=== PATIENT | male | born 1955 | race Caucasian/White ===

== ENCOUNTER 2021-03-06 09:42 | Inpatient (IN) | payer OTHER, SELFPAY ==
[2021-03-06] VITALS (56 sets, daily range): BP systolic 101–147; BP diastolic 51–82; PULSE 54–95; RESP 16–36; TEMP 35.5–36.6; O2SAT 72–100; BMI 36.2; BMI 34.1
--- NOTE | 2021-03-06 09:49 | ED.GENADULT ---
HPI - General Adult General Chief complaint: Shortness of Breath/Dyspnea Stated complaint: SOB Time Seen by Provider: 03/06/21 09:48 Source: patient Mode of arrival: EMS Limitations: no limitations History of Present Illness HPI narrative: Patient is a 65-year-old male. No prior history of lung pathology. Is on vaccinated against COVID-19. Approximately 5 days ago was seen at an outside facility at a walk-in clinic. Was diagnosed with pneumonia. Was placed on antibiotics. He does not know what antibiotic it was. He was supposed to take it 2 times a day. He does not know how long he was supposed to take it. He has been taking it as directed. Brought in by EMS this morning for shortness of breath. EMS report that the patient's told them that since the diagnosis of pneumonia he has become more more short of breath specifically dyspnea with exertion. This morning he was having a very difficult time even getting from his chair to the kitchen which is why EMS was called. The patient denies shortness of breath. Has had a cough. No fevers. No abdominal pain. No nausea vomiting. No lower extremity swelling. No numbness or tingling in his hands. No headaches. Related Data Allergies Allergy/AdvReac Type Severity Reaction Status Date / Time No Known Drug Allergies Allergy Verified 03/06/21 10:01 Review of Systems Constitutional Constitutional: Reports as per HPI and Reports system reviewed and no additional complaints, except as documented ENT Ears, Nose, Mouth, and Throat: Reports system reviewed and no additional complaints, except as documented and Reports as per HPI Cardiovascular Cardiovascular: Reports as per HPI and Reports system reviewed and no additional complaints, except as documented Respiratory Respiratory: Reports as per HPI and Reports system reviewed and no additional complaints, except as documented Gastrointestinal Gastrointestinal: Reports as per HPI and Reports system reviewed and no additional complaints, except as documented Genitourinary Genitourinary: Reports system reviewed and no additional complaints, except as documented and Reports as per HPI Musculoskeletal Musculoskeletal: Reports system reviewed and no additional complaints, except as documented and Reports as per HPI Integumentary/Breasts Skin/Breast: Reports system reviewed and no additional complaints, except as documented Neurologic Neurologic: Reports system reviewed and no additional complaints, except as documented Psychiatric Psychiatric: Reports system reviewed and no additional complaints, except as documented Hematologic/Lymphatic On Anticoagulants: No Allergic/Immunologic Allergic/Immunologic: Reports system reviewed and no additional complaints, except as documented Patient History Medical History (Updated 03/06/21 @ 14:11 by Orlando Sy MD) Diabetes History of diabetes mellitus Hypertension Social History marital status: lives independently: Yes Smoking Status: Never smoker Exam Initial Vital Signs Initial Vital Signs: Vital Signs Temperature 97.8 F 03/06/21 09:55 Pulse Rate 70 03/06/21 09:55 Respiratory Rate 26 H 03/06/21 09:55 Blood Pressure 135/64 03/06/21 09:55 Pulse Oximetry 72 L 03/06/21 09:55 Const General: cooperative and ill appearing HENMT Head: normal to inspection and normocephalic Eyes General: appearance normal, both eyes and all related structures Neck Neck: normal visual inspection Chest Chest: normal inspection of the chest Resp Effort & Inspection: labored, respiratory distress and tachypneic Cardio Rate: regular rate Rhythm: regular rhythm GI Inspection: normal to inspection Skin General: no rashes or lesions noted Neuro General: patient alert, patient awake, patient oriented x3 and moves all extremities Extrem General: normal to inspection and capillary refill normal Psych Appearance: grossly normal and well kempt Course Orders Ordered: ED Orders 03/06/21 09:50 XR chest 1V Stat COVID19 - ADMIT (PLANT GUIDE swab/PCR) Stat COVID19 -Nasal swab/Pre-Proc Stat RT Consult Eval and Treat Now 03/06/21 09:53 EKG-12 Lead Stat 03/06/21 10:00 Blood Culture Stat C-Reactive Protein Quant Stat Complete Blood Count AUTO DIFF Stat Comprehensive Metabolic Panel Stat D Dimer Stat Ferritin Stat Lactate (Lactic Acid) Stat Lactate Dehydrogenase Stat Lipase Stat NT-proBNP (BNP-Adult 18+) Stat Procalcitonin Stat Troponin & CK Cardiac Panel Stat 03/06/21 10:04 Arterial Blood Gas Stat 03/06/21 10:12 BiPAP Ventilatory Support RT PROTOCOL Sodium Chloride (Normal Saline 0.9%) 1,000 mls @ 100 mls/hr IV CONT CARRILLO Last Admin: 03/06/21 10:10 Dose: 100 mls/hr Documented by: BIJAN Discontinued Medications Dexamethasone (Dexamethasone 10 Mg/Ml Vial) 10 mg IV NOW ONE Stop: 03/06/21 10:26 Last Admin: 03/06/21 10:37 Dose: 10 mg Documented by: GUADALUPE Remdesivir 200 mg/ Sodium (Chloride) 250 mls @ 250 mls/hr IV NOW ONE Stop: 03/06/21 11:24 Last Admin: 03/06/21 10:59 Dose: Not Given Documented by: GUADALUPE Vital Signs Vital signs: Vital Signs - 8 hr 03/06/21 09:55 03/06/21 10:02 03/06/21 10:04 Temperature 97.8 F Pulse Rate 70 Respiratory Rate 36 H 36 H Blood Pressure 135/64 Pulse Oximetry 90 L 89 L 89 L 03/06/21 10:08 03/06/21 10:10 03/06/21 10:30 Temperature Pulse Rate 74 71 73 Respiratory Rate 28 H 28 H 24 Blood Pressure 126/66 116/65 Pulse Oximetry 88 L 88 L 90 L 03/06/21 10:42 03/06/21 11:00 03/06/21 11:15 Temperature Pulse Rate 73 71 67 Respiratory Rate 24 24 21 Blood Pressure 121/68 102/69 Pulse Oximetry 89 L 93 95 03/06/21 11:27 03/06/21 11:30 03/06/21 11:45 Temperature Pulse Rate 95 H 66 69 Respiratory Rate 24 23 26 H Blood Pressure 110/61 Pulse Oximetry 100 96 92 03/06/21 11:50 03/06/21 12:00 03/06/21 12:15 Temperature Pulse Rate 74 72 Respiratory Rate 20 24 31 H Blood Pressure 117/72 Pulse Oximetry 94 85 L 03/06/21 12:30 03/06/21 12:45 03/06/21 13:00 Temperature Pulse Rate 61 61 62 Respiratory Rate 22 21 20 Blood Pressure 109/59 L 112/58 L Pulse Oximetry 95 97 97 03/06/21 13:15 03/06/21 13:30 03/06/21 13:44 Temperature Pulse Rate 60 57 L Respiratory Rate 22 23 24 Blood Pressure 110/55 L Pulse Oximetry 97 99 93 03/06/21 13:45 Temperature Pulse Rate 62 Respiratory Rate 24 Blood Pressure Pulse Oximetry 93 Medical Decision Making Lab Data Lab results reviewed: Yes I reviewed the patient's lab results. Result diagrams: 03/06/21 10:00 03/06/21 10:00 Labs: Lab Results 03/06/21 03/06/21 03/06/21 Range/Units 09:50 09:50 10:00 WBC 11.0 (4.5-11.0) X10^3/uL RBC 4.94 (4.5-5.9) X10^6/uL Hgb 15.0 (13.5-17.5) g/dL Hct 45.7 (41-53) % MCV 92.6 (80-100) fL MCH 30.3 (26-34) PG MCHC 32.7 (30-36) % RDW 14.1 (11.6-14.8) % Plt Count 234 (150-400) X10^3/uL Neut % (Auto) 70.4 (50-75) % Lymph % (Auto) 22.0 L (25-40) % [place] % (Auto) 6.9 (3-14) % Eos % (Auto) 0.1 L (2-4) % Baso % (Auto) 0.6 (0-2) % Neut # (Auto) 7700 H (5905-3722) /uL Lymph # (Auto) 2400 (0740-8993) /uL [place] # (Auto) 800 (0-900) /uL Eos # (Auto) 0 (0-450) /uL Baso # (Auto) 100 (0-100) /uL D-Dimer (<230) ng/mL ABG pH (7.35-7.45) ABG pCO2 (35-45) mmHg ABG pO2 (80-100) mmHg ABG HCO3 (22-26) mmol/L ABG Total CO2 (21-31) mmol/L ABG O2 Saturation (95-100) % ABG Base Excess (-2-2) mmol/L FiO2 Sodium (137-145) mmol/L Potassium (3.4-5.1) mmol/L Chloride (98-107) mmol/L Carbon Dioxide (22-32) mmol/L BUN (9-20) mg/dL Creatinine (0.66-1.25) mg/dL Estimated GFR (>60) mL/min BUN/Creatinine Ratio (6-22) Glucose (80-110) mg/dL Lactate (0.7-2.1) mmol/L Calcium (8.4-10.2) mg/dL Ferritin (18-464) ng/mL Total Bilirubin (0.2-1.3) mg/dL AST (17-59) IU/L ALT (<50) IU/L Alkaline Phosphatase (38-126) U/L Lactate Dehydrogenase (313-618) U/L Total Creatine Kinase (55-170) U/L CK-MB (CK-2) (<2.37) ng/mL CK-MB (CK-2) Rel Index (1.5-5.0) % Troponin I (0.01-0.034) ng/mL C-Reactive Protein (<1.0) mg/dL NT-Pro-B Natriuret Pep (<125) pg/mL Total Protein (6.3-8.2) g/dL Albumin (3.5-5.0) g/dL Globulin (1.7-4.1) g/dL Albumin/Globulin Ratio (1.0-2.8) Lipase (23-300) U/L Procalcitonin (<0.5) ng/mL SARS-CoV-2 (PCR) Positive H Positive H (Negative) 03/06/21 03/06/21 03/06/21 Range/Units 10:00 10:00 10:00 WBC (4.5-11.0) X10^3/uL RBC (4.5-5.9) X10^6/uL Hgb (13.5-17.5) g/dL Hct (41-53) % MCV (80-100) fL MCH (26-34) PG MCHC (30-36) % RDW (11.6-14.8) % Plt Count (150-400) X10^3/uL Neut % (Auto) (50-75) % Lymph % (Auto) (25-40) % [place] % (Auto) (3-14) % Eos % (Auto) (2-4) % Baso % (Auto) (0-2) % Neut # (Auto) (1866-6572) /uL Lymph # (Auto) (2418-1931) /uL [place] # (Auto) (0-900) /uL Eos # (Auto) (0-450) /uL Baso # (Auto) (0-100) /uL D-Dimer (<230) ng/mL ABG pH (7.35-7.45) ABG pCO2 (35-45) mmHg ABG pO2 (80-100) mmHg ABG HCO3 (22-26) mmol/L ABG Total CO2 (21-31) mmol/L ABG O2 Saturation (95-100) % ABG Base Excess (-2-2) mmol/L FiO2 Sodium 146 H (137-145) mmol/L Potassium 3.8 (3.4-5.1) mmol/L Chloride 110 H (98-107) mmol/L Carbon Dioxide 21 L (22-32) mmol/L BUN 46 H (9-20) mg/dL Creatinine 2.75 H (0.66-1.25) mg/dL Estimated GFR 23.2 L (>60) mL/min BUN/Creatinine Ratio 16.7 (6-22) Glucose 68 L (80-110) mg/dL Lactate 1.6 (0.7-2.1) mmol/L Calcium 8.6 (8.4-10.2) mg/dL Ferritin (18-464) ng/mL Total Bilirubin 0.7 (0.2-1.3) mg/dL AST 108 H (17-59) IU/L ALT 44 (<50) IU/L Alkaline Phosphatase 68 (38-126) U/L Lactate Dehydrogenase (313-618) U/L Total Creatine Kinase 277 H (55-170) U/L CK-MB (CK-2) 1.57 (<2.37) ng/mL CK-MB (CK-2) Rel Index 0.6 L (1.5-5.0) % Troponin I 0.028 (0.01-0.034) ng/mL C-Reactive Protein (<1.0) mg/dL NT-Pro-B Natriuret Pep 300 H (<125) pg/mL Total Protein 7.3 (6.3-8.2) g/dL Albumin 4.0 (3.5-5.0) g/dL Globulin 3.3 (1.7-4.1) g/dL Albumin/Globulin Ratio 1.2 (1.0-2.8) Lipase 162 (23-300) U/L Procalcitonin 0.83 H (<0.5) ng/mL SARS-CoV-2 (PCR) (Negative) 03/06/21 03/06/21 03/06/21 Range/Units 10:00 10:00 10:04 WBC (4.5-11.0) X10^3/uL RBC (4.5-5.9) X10^6/uL Hgb (13.5-17.5) g/dL Hct (41-53) % MCV (80-100) fL MCH (26-34) PG MCHC (30-36) % RDW (11.6-14.8) % Plt Count (150-400) X10^3/uL Neut % (Auto) (50-75) % Lymph % (Auto) (25-40) % [place] % (Auto) (3-14) % Eos % (Auto) (2-4) % Baso % (Auto) (0-2) % Neut # (Auto) (6154-1972) /uL Lymph # (Auto) (3247-2340) /uL [place] # (Auto) (0-900) /uL Eos # (Auto) (0-450) /uL Baso # (Auto) (0-100) /uL D-Dimer 2045 H (<230) ng/mL ABG pH 7.43 (7.35-7.45) ABG pCO2 27.5 L (35-45) mmHg ABG pO2 58 L (80-100) mmHg ABG HCO3 18 L (22-26) mmol/L ABG Total CO2 19 L (21-31) mmol/L ABG O2 Saturation 91 L (95-100) % ABG Base Excess -6.0 L (-2-2) mmol/L FiO2 100 Sodium (137-145) mmol/L Potassium (3.4-5.1) mmol/L Chloride (98-107) mmol/L Carbon Dioxide (22-32) mmol/L BUN (9-20) mg/dL Creatinine (0.66-1.25) mg/dL Estimated GFR (>60) mL/min BUN/Creatinine Ratio (6-22) Glucose (80-110) mg/dL Lactate (0.7-2.1) mmol/L Calcium (8.4-10.2) mg/dL Ferritin 1270 H (18-464) ng/mL Total Bilirubin (0.2-1.3) mg/dL AST (17-59) IU/L ALT (<50) IU/L Alkaline Phosphatase (38-126) U/L Lactate Dehydrogenase 2431 H (313-618) U/L Total Creatine Kinase (55-170) U/L CK-MB (CK-2) (<2.37) ng/mL CK-MB (CK-2) Rel Index (1.5-5.0) % Troponin I (0.01-0.034) ng/mL C-Reactive Protein 32.0 H (<1.0) mg/dL NT-Pro-B Natriuret Pep (<125) pg/mL Total Protein (6.3-8.2) g/dL Albumin (3.5-5.0) g/dL Globulin (1.7-4.1) g/dL Albumin/Globulin Ratio (1.0-2.8) Lipase (23-300) U/L Procalcitonin (<0.5) ng/mL SARS-CoV-2 (PCR) (Negative) Imaging Data Chest x-ray: Radiologist's Impression: [address] [address] XRay Report Signed Patient: Thierry Remy MR#: [id number] : 1955 Acct:[id number] Age/Sex: 65 / M Date of Service: 03/06/21 Loc: ED Accession Number: [id number] ?? Procedure: XR chest 1V Ordering Provider: Aric Smith D.O. PROCEDURE:? XR CHEST 1V ? INDICATIONS:? hypoxia ? TECHNIQUE:? One view of the chest was acquired.? ? COMPARISON:? [facility], XR SHOULDER 2+ VIEWS RIGHT, 01/14/2021, 16:15. ? FINDINGS:? ? Surgical changes and devices:? None.? ? Lungs and pleura:? Low lung volumes are noted. This causes a crowded appearance to the lung markings and limits evaluation.? Mild generalized interstitial prominence can be seen.? No large pneumothorax or large pleural effusions are seen.? ? Mediastinum:? Mediastinal contours appear normal.? Heart size is normal.? ? Bones and chest wall:? No suspicious bony lesions.? Age-appropriate bony degenerative changes are seen.? Overlying soft tissues appear unremarkable.? IMPRESSION:? Bilateral interstitial infiltrates are seen with low lung volumes.? Please consider COVID pneumonia.? ? ? Dictated by: Jayy Orr M.D. on 03/06/2021 at 9:31 ? ? Approved by: Jayy Orr M.D. on 03/06/2021 at 9:31?? ECG Data Attestation: I personally reviewed and interpreted this ECG as follows: Interpretation: Sinus rhythm Ventricular rate is 72 Normal axis Normal QRS Normal QTC No ST T wave changes MDM Narrative Medical decision making narrative: Patient arrived hypoxic. Had to be placed on high-flow nasal cannula. This improved his oxygen saturations to the high 80s. ABG shows a few to of 58 on the high-flow. Chest x-ray shows bilateral pulmonary infiltrates. COVID test today positive. Patient unvaccinated. Patient does have an elevation in his creatinine. No baseline to compare to. Patient states he has never had issues with his kidney function in the past. I discussed the case with Dr. li with Internal Medicine who recommended that I discuss the case with the tele ICU. I then discussed the case with with the tele ICU. He stated given his GFR that he is not a candidate for remdesivir. He was concerned about the patient's kidney function and the concerned that with fluid hydration he potentially could need renal replacement therapy. He recommended attempting to find a facility that has this available. We contacted multiple facilities in [facility] and there was no ICU bed availability. During his stay we did have the patient lay prone in the bed. He almost immediately had improvement of his respiratory status. Oxygen saturations now greater than 95%. When he got up to use the bedside commode his saturations dropped to the 70s per he denies chest pain. Because of no bed availability at any further ICU I discussed the case again with Dr. li who will admit for further evaluation and treatment. Did discuss the need of the admission with the patient. He expressed understanding and agreement. Critical Care Time Critical Care Time Critical Care Time: Yes Total Critical Care Time: 65 Attestation: The high probability of a clinically significant, sudden or life threatening deterioration of the respiratory system(s) required my full and direct attention, intervention and personal management. The aggregate critical care time was [65] minutes. This time is in addition to time spent performing reported procedures but includes the following: [x] Data Review and interpretation [x] Patient assessment and monitoring of vital signs [x] Documentation x[] Medication orders and management Discharge Plan Departure Patient Disposition: Admitted As Inpatient Clinical Impression: Pneumonia due to 2019 novel coronavirus, Hypoxia, Acute kidney injury Admit Date/Time: 03/06/21 13:47 Admit Provider: Hannah Li
--- NOTE | 2021-03-06 09:50 | DI.RAD.S_ITS ---
PROCEDURE: XR CHEST 1V INDICATIONS: hypoxia TECHNIQUE: One view of the chest was acquired. COMPARISON: [facility] [place], [place], XR SHOULDER 2+ VIEWS RIGHT, 01/14/2021, 16:15. FINDINGS: Surgical changes and devices: None. Lungs and pleura: Low lung volumes are noted. This causes a crowded appearance to the lung markings and limits evaluation. Mild generalized interstitial prominence can be seen. No large pneumothorax or large pleural effusions are seen. Mediastinum: Mediastinal contours appear normal. Heart size is normal. Bones and chest wall: No suspicious bony lesions. Age-appropriate bony degenerative changes are seen. Overlying soft tissues appear unremarkable. IMPRESSION: Bilateral interstitial infiltrates are seen with low lung volumes. Please consider COVID pneumonia. Dictated by: Jayy Orr M.D. on 03/06/2021 at 9:31 Approved by: Jayy Orr M.D. on 03/06/2021 at 9:31
[2021-03-06] MEDS: SODIUM CHLORIDE 0.9% 1,000 ML 100 ML IV (10:10)
[2021-03-06 10:11] LABS: Add Manual Diff / Slide Review NO; Basophils Absolute Auto 100 /uL (0-100); Basophils Percent Auto 0.6 % (0-2); Eosinophils Absolute Auto 0 /uL (0-450); Eosinophils Percent Auto 0.1 % (2-4); Hematocrit 45.7 % (41-53); Lymphocytes Absolute Auto 2400 /uL (1100-4500); Mean Corpuscular HGB Conc 32.7 % (30-36); Mean Corpuscular Hemoglobin 30.3 PG (26-34); Mean Corpuscular Volume 92.6 fL (80-100); Monocytes Absolute Auto 800 /uL (0-900); Monocytes Percent Auto 6.9 % (3-14); Neutrophils Absolute Auto 7700 /uL (1500-7000); Neutrophils Percent Auto 70.4 % (50-75); Platelet Count 234 X10^3/uL (150-400); Red Blood Cell Count 4.94 X10^6/uL (4.5-5.9); Red Cell Distribution Width 14.1 % (11.6-14.8)
--- NOTE | 2021-03-06 10:17 | PC.NURSE ---
Pt arrives on 12L NRB O2 from medics, sats 73%. Placed on 60Lmin high flow nasal cannula upon arrival, sats raise to 87%. Pt remains oriented, understands what is going on, speaking in broken sentences. Increased WOB, deep breaths, abdominal breathing, tachypnic. He states his at home has been developing a cough.
[2021-03-06 10:22] LABS: Fractionated Inspired Oxygen 100; HCO3 ABG 18 mmol/L (22-26); Oxygen Saturation ABG 91 % (95-100); PCO2 ABG 27.5 mmHg (35-45); PO2 ABG 58 mmHg (80-100); TCO2 ABG 19 mmol/L (21-31); pH ABG 7.43 (7.35-7.45)
[2021-03-06 10:24] LABS: Alanine Aminotransferase 44 IU/L (<50); Albumin Globulin Ratio 1.2 (1.0-2.8); Alkaline Phosphatase 68 U/L (38-126); Aspartate Aminotransferase 108 IU/L (17-59); BUN Creatinine Ratio 16.7 (6-22); Bilirubin Total 0.7 mg/dL (0.2-1.3); Blood Urea Nitrogen 46 mg/dL (9-20); Calcium 8.6 mg/dL (8.4-10.2); Carbon Dioxide 21 mmol/L (22-32); Chloride 110 mmol/L (98-107); Estimated Glomerular Filt Rate 23.2 mL/min (>60); Globulin 3.3 g/dL (1.7-4.1); Glucose 68 mg/dL (80-110); HEMOLYSIS 16 (0-50); Potassium 3.8 mmol/L (3.4-5.1); Sodium 146 mmol/L (137-145); Total Protein 7.3 g/dL (6.3-8.2)
[2021-03-06 10:25] LABS: Lactate (Lactic Acid) 1.6 mmol/L (0.7-2.1)
[2021-03-06 10:26] LABS: COVID19 -Nasal RAPID POSITIVE (Negative)
[2021-03-06 10:33] LABS: Creatine Kinase 277 U/L (55-170); Lipase 162 U/L (23-300)
[2021-03-06 10:34] LABS: D Dimer 2045 ng/mL (<230)
[2021-03-06] MEDS: DEXAMETHASONE 10 MG/ML VIAL IV (10:37)
[2021-03-06 10:46] LABS: NT-proBNP (BNP-Adult 18+) 300 pg/mL (<125); Troponin I 0.028 ng/mL (0.01-0.034)
[2021-03-06 10:48] LABS: Lactate Dehydrogenase 2431 U/L (313-618)
[2021-03-06 10:51] LABS: Procalcitonin 0.83 ng/mL (<0.5)
[2021-03-06 10:55] LABS: COVID19 - ADMIT (NP swab/PCR) POSITIVE (Negative)
[2021-03-06 10:59] LABS: CKMB % Relative Index 0.6 % (1.5-5.0); Creatine Kinase MB 1.57 ng/mL (<2.37)
[2021-03-06] MEDS: BARICITINIB 2 MG TABLET 1 MG PO (11:19)
--- NOTE | 2021-03-06 11:22 | PC.NURSE ---
Pt placed in full prone position, propped by pillow. Remains on high flow@60L/min. He states this position is much more comfortable and he feels more able to breathe. Sats raise to 94-97%. Call light within reach.
[2021-03-06 11:58] LABS: Ferritin 1270 ng/mL (18-464)
--- NOTE | 2021-03-06 12:50 | PC.NURSE ---
This RN to bedside to assist with elimination. Pt rolled to side/back lying. Unable to use urinal in this position. Attempted to lie on back and use bedpan, without successful output. Sat on edge of bed to use urinal, unable to eliminate. Throughout this entire process his sats drop to 77%-83%. Pt replaced to prone lying position with absorbent pads and brief below him. Sats begin to improve to mid 90's again. Call light within reach, encouraged to call for staff when needed. Pt remains GCS 15, aware of his diagnosis and situation. This RN has spoken with Romi who is also symptomatic and plans to go to the walk-in and get tested for COVID.
--- NOTE | 2021-03-06 13:46 | P.TELICUCN_ITS ---
History of Present Illness Consult details Chief complaint: SOB :: This patient was seen via real time interactive two-way audiovisual telecommunication. Narrative: Mr. Remy is a 65 year old male with history of hypertension and DM presents with worsening shortness of breath. Patient was diagnosed with pneumonia about 5 days ago and started on unknown antibiotics. He continues to have worsening shortness and cough. No reported fever/chills, abdominal pain, LE swelling, or N/V. EMS called and brought him to the ER for further evaluation. In ER he was found to have SpO2 in the 70s which he was placed on HFNC 60/100%. He was tested positive for COVID 19. Labs notable for Co2 21, BUN 46, Cr 2.75, ferritin 2431, LDH 1270, and CRP 32. TeleICU consulted and recommended transferring to tertiary care who is able to offer renal replacement therapy in the setting of worsening renal function. ER physician spoke to multiple [facility] centers but unfortunately there is no ICU bed available. Patient will be admitted to ICU for further management under Dr. Li's service with teleintensivist consult. [facility] Medical History (Updated 03/06/21 @ 14:11 by Orlando Sy MD) Diabetes History of diabetes mellitus Hypertension Social History marital status: lives independently: Yes Smoking Status: Never smoker Current Medications Current Medications Medications: Visit Medications (administered) Generic Name Dose Route Start Last Admin Trade Name Freq PRN Reason Stop Dose Admin Sodium Chloride 1,000 mls @ 100 mls/hr 03/06/21 10:00 03/06/21 10:10 Normal Saline 0.9% IV 100 mls/hr CONT CARRILLO Administration Exam Vital Signs (past 8 hours): - 03/06/21 09:55 03/06/21 10:02 03/06/21 10:08 Temperature 97.8 F Pulse Rate 70 74 Respiratory Rate 36 H 28 H Blood Pressure 135/64 Pulse Oximetry 90 L 89 L 88 L 03/06/21 10:10 03/06/21 10:30 03/06/21 10:42 Temperature Pulse Rate 71 73 73 Respiratory Rate 28 H 24 24 Blood Pressure 126/66 116/65 Pulse Oximetry 88 L 90 L 89 L 03/06/21 11:00 03/06/21 11:15 03/06/21 11:27 Temperature Pulse Rate 71 67 95 H Respiratory Rate 24 21 24 Blood Pressure 121/68 102/69 Pulse Oximetry 93 95 100 03/06/21 11:30 03/06/21 11:45 03/06/21 12:00 Temperature Pulse Rate 66 69 74 Respiratory Rate 23 26 H 24 Blood Pressure 110/61 117/72 Pulse Oximetry 96 92 85 L 03/06/21 12:15 03/06/21 12:30 03/06/21 12:45 Temperature Pulse Rate 72 61 61 Respiratory Rate 31 H 22 21 Blood Pressure 109/59 L Pulse Oximetry 95 97 03/06/21 13:00 Temperature Pulse Rate 62 Respiratory Rate 20 Blood Pressure 112/58 L Pulse Oximetry 97 Oxygen Delivery Method High Flow Nasal Cannula Oxygen Flow Rate 90 Narrative Exam Narrative: Awake and following commands. On HFNC. Objective Labs Result Diagrams: 03/06/21 10:00 03/06/21 10:00 Labs: Laboratory Results - last 24 hr 03/06/21 03/06/21 03/06/21 09:50 09:50 10:00 WBC 11.0 RBC 4.94 Hgb 15.0 Hct 45.7 MCV 92.6 MCH 30.3 MCHC 32.7 RDW 14.1 Plt Count 234 Neut % (Auto) 70.4 Lymph % (Auto) 22.0 L [place] % (Auto) 6.9 Eos % (Auto) 0.1 L Baso % (Auto) 0.6 Neut # (Auto) 7700 H Lymph # (Auto) 2400 [place] # (Auto) 800 Eos # (Auto) 0 Baso # (Auto) 100 D-Dimer ABG pH ABG pCO2 ABG pO2 ABG HCO3 ABG Total CO2 ABG O2 Saturation ABG Base Excess FiO2 Sodium Potassium Chloride Carbon Dioxide BUN Creatinine Estimated GFR BUN/Creatinine Ratio Glucose Lactate Calcium Ferritin Total Bilirubin AST ALT Alkaline Phosphatase Lactate Dehydrogenase Total Creatine Kinase CK-MB (CK-2) CK-MB (CK-2) Rel Index Troponin I C-Reactive Protein NT-Pro-B Natriuret Pep Total Protein Albumin Globulin Albumin/Globulin Ratio Lipase Procalcitonin SARS-CoV-2 (PCR) Positive H Positive H 03/06/21 03/06/21 03/06/21 10:00 10:00 10:00 WBC RBC Hgb Hct MCV MCH MCHC RDW Plt Count Neut % (Auto) Lymph % (Auto) [place] % (Auto) Eos % (Auto) Baso % (Auto) Neut # (Auto) Lymph # (Auto) [place] # (Auto) Eos # (Auto) Baso # (Auto) D-Dimer ABG pH ABG pCO2 ABG pO2 ABG HCO3 ABG Total CO2 ABG O2 Saturation ABG Base Excess FiO2 Sodium 146 H Potassium 3.8 Chloride 110 H Carbon Dioxide 21 L BUN 46 H Creatinine 2.75 H Estimated GFR 23.2 L BUN/Creatinine Ratio 16.7 Glucose 68 L Lactate 1.6 Calcium 8.6 Ferritin Total Bilirubin 0.7 AST 108 H ALT 44 Alkaline Phosphatase 68 Lactate Dehydrogenase Total Creatine Kinase 277 H CK-MB (CK-2) 1.57 CK-MB (CK-2) Rel Index 0.6 L Troponin I 0.028 C-Reactive Protein NT-Pro-B Natriuret Pep 300 H Total Protein 7.3 Albumin 4.0 Globulin 3.3 Albumin/Globulin Ratio 1.2 Lipase 162 Procalcitonin 0.83 H SARS-CoV-2 (PCR) 03/06/21 03/06/21 03/06/21 10:00 10:00 10:04 WBC RBC Hgb Hct MCV MCH MCHC RDW Plt Count Neut % (Auto) Lymph % (Auto) [place] % (Auto) Eos % (Auto) Baso % (Auto) Neut # (Auto) Lymph # (Auto) [place] # (Auto) Eos # (Auto) Baso # (Auto) D-Dimer 2045 H ABG pH 7.43 ABG pCO2 27.5 L ABG pO2 58 L ABG HCO3 18 L ABG Total CO2 19 L ABG O2 Saturation 91 L ABG Base Excess -6.0 L FiO2 100 Sodium Potassium Chloride Carbon Dioxide BUN Creatinine Estimated GFR BUN/Creatinine Ratio Glucose Lactate Calcium Ferritin 1270 H Total Bilirubin AST ALT Alkaline Phosphatase Lactate Dehydrogenase 2431 H Total Creatine Kinase CK-MB (CK-2) CK-MB (CK-2) Rel Index Troponin I C-Reactive Protein 32.0 H NT-Pro-B Natriuret Pep Total Protein Albumin Globulin Albumin/Globulin Ratio Lipase Procalcitonin SARS-CoV-2 (PCR) Assessment & Plan Assessment and plan (1) Acute respiratory failure with hypoxemia: Status: Acute (2) Metabolic acidosis: Status: Acute Assessment & Plan narrative: NEURO: -- Seek early mobility once hypoxemia improve -- Encourage ROM while in bed as tolerated RESP: # Acute hypoxemia respiratory failure -- Secondary to COVID pneumonia -- Admitted to ICU on HFNC -- COVID rx as below -- Monitor closely for the need for intubation -- RT to titrate FiO2 and flow with HFNC -- Aggressive pulmonary toilet as able -- Recommend stopping IVF and starting lasix 40 mg IV BID to seek net negative fluid balance -- Encourage self proning as tolerated -- Goal SpO2 > 88% CVS: # Hx of HTN -- Currently normotensive -- Recommend holding off restarting BP meds and initiate lasix 40 mg IV BID to seek net negative fluid balance -- Goal SBP < 140 ID: # Pneumonia due to COVID-19 -- Risk factors -> DM, HTN, obesity, and age -- Trend CRP, LDH, troponin, ferritin, D dimer, and LFT -- Start decadron 6 mg X 10 days -- Not a candidate for EUA remdesivir given GFR < 30 -- Recommend starting baricitinib (renally dose by pharmacy) -- Recommend checking venous duplex in upper and lower extremities to rule out VTE -- Avoid NSAIDs -- Encourage self prone as tolerated (ie, 2 hours supine and 2 hours prone) -- Recommend starting diuresis to seek net negative fluid balance -- On strict contact, droplet/airborne, eye protection, and critical meticulous hand hygiene : # Acute renal failure -- Unknown baseline cr -- Secondary to COVID -19 -- Recommend lasix 40 mg IV BID to seek net negative fluid balance -- Avoid nephrotoxin agents -- Daily BMP -- Recommend seeking transfer to tertiary center as patient may warrant renal replacement therapy if renal function continues to deteriorate # Metabolic acidosis -- Secondary to acute renal failure -- Daily BMP -- Needs to be transfer to tertiary center as patient may warrant renal replacement therapy in the setting of worsening acidemia ENDO: # DM -- BS 68, related to poor po intake -- Encourage PO intake -- Accucheck AC QHS -- Goal BS < 180 Case d/w RN and Dr. Li. Time Spent With Patient Critical Care time: I spent a total of 43 minutes of critical care time on this patient's care today; this time is exclusive of procedural time.
--- NOTE | 2021-03-06 14:12 | PC.NURSE ---
Pt remains prone, stating that he is most comfortable this way. Sats remain stable only in the prone position. Sats drop to 80's% whenever her changes position or exerts himself.
--- NOTE | 2021-03-06 15:47 | PC.NURSE ---
Report called to [facility] [employer]
--- NOTE | 2021-03-06 17:40 | PM.HP.1 ---
History of Present Illness History of Present Illness Date Patient Seen: 03/06/21 Time Patient Seen: 17:40 Chief complaint: SOB Narrative: the patient is a 65-year-old male with a history of type 2 diabetes, hypertension, who was in his usual state of health until about 1 week ago. Patient was diagnosed with pneumonia and started on oral antibiotics. Patient states that he became more short of breath. As his shortness of breath increased the called EMS for him to be admitted to the hospital. Patient was diagnosed with COVID 19. He is unvaccinated. He does report shortness of breath, cough, loss of taste and smell. He has a poor appetite. He has no headache. He has had no diarrhea. Patient denies any abdominal pain. He has a plate in his ankle and has chronic ankle pain. Patient was evaluated in the emergency room found to be [id number] positive. He was markedly hypoxic. Patient is now on 80% high-flow oxygen with a saturation of 95%. Since pronating he has had improvement of his oxygenation. Patient is admitted to the ICU for treatment of acute respiratory failure secondary to COVID pneumonia. Patient History Medical History Diabetes History of diabetes mellitus Hypertension Family & Social History Family History (Updated 03/06/21 @ 17:44 by Hannah Li MD) Father Cancer Mother Multiple sclerosis Social History: household members spouse Prior Living Arrangements House lives independently Yes Safety & Behavioral: Feels Safe in Current Yes Environment Been Physically Hurt or No Threatened By a Person Suicidal Ideation Description None Suicide Plan Description No Plan Tobacco & Substance use: Smoking Status Never smoker alcohol intake frequency holiday/special occasion Substance Use Type does not use Meds Home Medications and Allergies Home Medications Medication Instructions Recorded Confirmed Type felodipine 2.5 mg tablet,extended 2.5 mg PO DAILY 03/06/21 03/06/21 History release 24 hr losartan 100 mg tablet 100 mg DAILY 03/06/21 03/06/21 History metformin 500 mg tablet,extended 500 mg PO DAILY 03/06/21 03/06/21 History release 24 hr Allergies Allergy/AdvReac Type Severity Reaction Status Date / Time No Known Drug Allergies Allergy Verified 03/06/21 10:01 Exam Vital Signs (past 8 hours): - 03/06/21 09:55 03/06/21 10:02 03/06/21 10:04 Temperature 97.8 F Pulse Rate 70 Respiratory Rate 36 H 36 H Blood Pressure 135/64 Pulse Oximetry 90 L 89 L 89 L 03/06/21 10:08 03/06/21 10:10 03/06/21 10:30 Temperature Pulse Rate 74 71 73 Respiratory Rate 28 H 28 H 24 Blood Pressure 126/66 116/65 Pulse Oximetry 88 L 88 L 90 L 03/06/21 10:42 03/06/21 11:00 03/06/21 11:15 Temperature Pulse Rate 73 71 67 Respiratory Rate 24 24 21 Blood Pressure 121/68 102/69 Pulse Oximetry 89 L 93 95 03/06/21 11:27 03/06/21 11:30 03/06/21 11:45 Temperature Pulse Rate 95 H 66 69 Respiratory Rate 24 23 26 H Blood Pressure 110/61 Pulse Oximetry 100 96 92 03/06/21 11:50 03/06/21 12:00 03/06/21 12:15 Temperature Pulse Rate 74 72 Respiratory Rate 20 24 31 H Blood Pressure 117/72 Pulse Oximetry 94 85 L 03/06/21 12:30 03/06/21 12:45 03/06/21 13:00 Temperature Pulse Rate 61 61 62 Respiratory Rate 22 21 20 Blood Pressure 109/59 L 112/58 L Pulse Oximetry 95 97 97 03/06/21 13:15 03/06/21 13:30 03/06/21 13:44 Temperature Pulse Rate 60 57 L Respiratory Rate 22 23 24 Blood Pressure 110/55 L Pulse Oximetry 97 99 93 03/06/21 13:45 03/06/21 14:00 03/06/21 14:15 Temperature Pulse Rate 62 60 58 L Respiratory Rate 24 23 23 Blood Pressure 110/60 Pulse Oximetry 93 94 96 03/06/21 14:30 03/06/21 14:45 03/06/21 15:00 Temperature Pulse Rate 56 L 60 54 L Respiratory Rate 23 24 22 Blood Pressure 105/56 L 101/56 L Pulse Oximetry 95 94 96 03/06/21 15:15 03/06/21 15:30 Temperature Pulse Rate 55 L 57 L Respiratory Rate 21 22 Blood Pressure 108/58 L Pulse Oximetry 97 97 Oxygen Delivery Method High Flow Nasal Cannula Oxygen Flow Rate 60 Narrative Exam Narrative: ill-appearing male lying prone who appears short of breath HENMT Other: normocephalic atraumatic, extraocular muscles are intact, oropharynx is clear with dry mucous membranes Neck Other: neck is supple without adenopathy Resp Other: lungs decreased breath sounds with scattered crackles b Cardio Other: cardiac exam: Regular rate and rhythm normal S1-S2 GI Other: abdomen: Soft nontender nondistended Skin Other: no obvious lesions Neuro Other: neuro exam: Cranial nerves appear to be intact, patient is able move all extremities, sensations grossly intact Extrem Other: extremities: No edema Psych Other: patient is awake and alert and responds to questions appropriately, no hallucinations, no delusions, normal judgment and thought process Objective Labs Result Diagrams: 03/06/21 10:00 03/06/21 10:00 Labs: Laboratory Results - last 24 hr 03/06/21 03/06/21 03/06/21 09:50 09:50 10:00 WBC 11.0 RBC 4.94 Hgb 15.0 Hct 45.7 MCV 92.6 MCH 30.3 MCHC 32.7 RDW 14.1 Plt Count 234 Neut % (Auto) 70.4 Lymph % (Auto) 22.0 L [place] % (Auto) 6.9 Eos % (Auto) 0.1 L Baso % (Auto) 0.6 Neut # (Auto) 7700 H Lymph # (Auto) 2400 [place] # (Auto) 800 Eos # (Auto) 0 Baso # (Auto) 100 D-Dimer ABG pH ABG pCO2 ABG pO2 ABG HCO3 ABG Total CO2 ABG O2 Saturation ABG Base Excess FiO2 Sodium Potassium Chloride Carbon Dioxide BUN Creatinine Estimated GFR BUN/Creatinine Ratio Glucose Lactate Calcium Ferritin Total Bilirubin AST ALT Alkaline Phosphatase Lactate Dehydrogenase Total Creatine Kinase CK-MB (CK-2) CK-MB (CK-2) Rel Index Troponin I C-Reactive Protein NT-Pro-B Natriuret Pep Total Protein Albumin Globulin Albumin/Globulin Ratio Lipase Procalcitonin SARS-CoV-2 (PCR) Positive H Positive H 03/06/21 03/06/21 03/06/21 10:00 10:00 10:00 WBC RBC Hgb Hct MCV MCH MCHC RDW Plt Count Neut % (Auto) Lymph % (Auto) [place] % (Auto) Eos % (Auto) Baso % (Auto) Neut # (Auto) Lymph # (Auto) [place] # (Auto) Eos # (Auto) Baso # (Auto) D-Dimer ABG pH ABG pCO2 ABG pO2 ABG HCO3 ABG Total CO2 ABG O2 Saturation ABG Base Excess FiO2 Sodium 146 H Potassium 3.8 Chloride 110 H Carbon Dioxide 21 L BUN 46 H Creatinine 2.75 H Estimated GFR 23.2 L BUN/Creatinine Ratio 16.7 Glucose 68 L Lactate 1.6 Calcium 8.6 Ferritin Total Bilirubin 0.7 AST 108 H ALT 44 Alkaline Phosphatase 68 Lactate Dehydrogenase Total Creatine Kinase 277 H CK-MB (CK-2) 1.57 CK-MB (CK-2) Rel Index 0.6 L Troponin I 0.028 C-Reactive Protein NT-Pro-B Natriuret Pep 300 H Total Protein 7.3 Albumin 4.0 Globulin 3.3 Albumin/Globulin Ratio 1.2 Lipase 162 Procalcitonin 0.83 H SARS-CoV-2 (PCR) 03/06/21 03/06/21 03/06/21 10:00 10:00 10:04 WBC RBC Hgb Hct MCV MCH MCHC RDW Plt Count Neut % (Auto) Lymph % (Auto) [place] % (Auto) Eos % (Auto) Baso % (Auto) Neut # (Auto) Lymph # (Auto) [place] # (Auto) Eos # (Auto) Baso # (Auto) D-Dimer 2045 H ABG pH 7.43 ABG pCO2 27.5 L ABG pO2 58 L ABG HCO3 18 L ABG Total CO2 19 L ABG O2 Saturation 91 L ABG Base Excess -6.0 L FiO2 100 Sodium Potassium Chloride Carbon Dioxide BUN Creatinine Estimated GFR BUN/Creatinine Ratio Glucose Lactate Calcium Ferritin 1270 H Total Bilirubin AST ALT Alkaline Phosphatase Lactate Dehydrogenase 2431 H Total Creatine Kinase CK-MB (CK-2) CK-MB (CK-2) Rel Index Troponin I C-Reactive Protein 32.0 H NT-Pro-B Natriuret Pep Total Protein Albumin Globulin Albumin/Globulin Ratio Lipase Procalcitonin SARS-CoV-2 (PCR) Assessment & Plan Assessment & Plan narrative: the patient is a 65-year-old male with a history of hypertension type 2 diabetes admitted to the hospital with acute respiratory failure secondary to COVID pneumonia -Patient is Sars Covid-19 + -Patient is unvaccinated -Patient is hypoxic now on High Flow 80%, 60 liters -Chest Xray confirms bilateral interstital infiltrates -WBC 11.0, D-dimer 2045, ABG ,7.43, 27.5,58, 19, 91% on 100% FIO2 -Ferritin 1270, AST 108, LDH 2431, CRP, 32.0, Procalcitonin 0.83 -Troponin 0.28 -will continue decadron, remdesivir, baricitinib (renally dosed) -on lovenox 40 mg Sq -continue proning -d/c IVF -consider CTA to r/o PE if no improvement Acute vs. Chronic Renal Failure -Creatinine elevated at 2.75, unsure of baseline -Lactic Acid 1.6 -Losartan on hold -Lasix per [employer] [place] Hypertension -blood pressure well controlled -hold losartan and felodipine Type 2 Diabetes -hold metformin and glipizide -basal bolus insulin, start lantus 20 units tonight plus sliding scale DVT prophylaxis -lovenox 40 SQ daily ( given renal failure) - Patient is a full code. His is his surrogate decision maker. If the patient required intubation he would want this. IF tracheostomy was required he would want this as well I have utilized all available resources to review update, and confirm his current medications 45 mins critical care time spent with this patient Time Spent With Patient Critical Care time: I spent a total of [] minutes of critical care time on this patient's care today; this time is exclusive of procedural time.
--- NOTE | 2021-03-06 20:20 | PM.ICURNDS ---
- Date Patient Seen: 03/06/21 Time Patient Seen: 20:20 :: This patient was seen via real time interactive two-way audiovisual telecommunication. Note: patient seen/chart reviewed 65 year old male with covid pna acute renal failure currently afebrile, HD stable, mental status intact, in prone position -cont intermittent proning -cont steroids -cont diuresis -suggest transfer to tertiary center when bed available -discussed with bedside nurse
[2021-03-06] MEDS: MAGNESIUM HYDROXIDE 30 ML UDC PO (21:31)
[2021-03-06] MEDS: INSULIN GLARGINE 100 UNIT/ML 3ML PEN 20 UNIT SUBCUT (21:31)
[2021-03-06] MEDS: DOCUSATE 100 MG CAPSULE PO (21:31)
[2021-03-06] MEDS: INSULIN LISPRO 100 UNIT/ML 3ML VIAL SUBCUT (21:32)
--- NOTE | 2021-03-06 22:26 | PC.ADMIT ---
[address] [facility] Admission Note: The patient,Thierry Remy,65 y/o, was given written information regarding hospital policies, unit procedures and contact persons. Patient's smoking status: Never smoker. Vital Signs - 8 hr 03/06/21 14:30 03/06/21 14:45 03/06/21 15:00 Temperature Pulse Rate 56 L 60 54 L Respiratory Rate 23 24 22 Blood Pressure 105/56 L 101/56 L Pulse Oximetry 95 94 96 03/06/21 15:15 03/06/21 15:30 03/06/21 15:40 Temperature Pulse Rate 55 L 57 L 59 L Respiratory Rate 21 22 20 Blood Pressure 108/58 L Pulse Oximetry 97 97 95 03/06/21 15:45 03/06/21 16:00 03/06/21 16:21 Temperature Pulse Rate 57 L 67 62 Respiratory Rate 23 28 H 29 H Blood Pressure 121/67 Pulse Oximetry 98 91 03/06/21 16:23 03/06/21 16:30 03/06/21 16:45 Temperature 95.9 F L Pulse Rate 60 61 68 Respiratory Rate 26 H 26 H 20 Blood Pressure 111/51 L Pulse Oximetry 94 92 03/06/21 17:00 03/06/21 17:06 03/06/21 17:15 Temperature Pulse Rate 54 L 62 65 Respiratory Rate 23 24 Blood Pressure 120/61 120/61 Pulse Oximetry 94 93 91 03/06/21 17:30 03/06/21 17:45 03/06/21 18:00 Temperature Pulse Rate 66 62 60 Respiratory Rate 22 22 20 Blood Pressure 115/58 L Pulse Oximetry 95 93 96 03/06/21 18:30 03/06/21 19:00 03/06/21 19:01 Temperature Pulse Rate 59 L 77 77 Respiratory Rate 32 H 31 H Blood Pressure 147/82 H 147/82 H Pulse Oximetry 96 80 L 78 L 03/06/21 19:30 03/06/21 20:00 03/06/21 20:13 Temperature Pulse Rate 70 61 61 Respiratory Rate 29 H 22 25 H Blood Pressure Pulse Oximetry 87 L 92 98 03/06/21 20:30 03/06/21 21:00 03/06/21 21:30 Temperature Pulse Rate 76 61 63 Respiratory Rate 24 23 29 H Blood Pressure 127/63 Pulse Oximetry 87 L 90 L 93 03/06/21 22:00 Temperature Pulse Rate 60 Respiratory Rate 22 Blood Pressure 127/58 L Pulse Oximetry 95 Patient admitted from ED to hospitalists' care around 1615. Patient A/Ox4, on HHF 60L, 80%, spO2 in low 90's when prone, mid 80s when supine. BP WNL, HR barry in 50s. RR low 20s once settled. Consulted with teleICU. Placed ness. Patient oriented to room and call light, able to make needs known.
[2021-03-06] MEDS: FUROSEMIDE 40 MG/4 ML VIAL IV (23:58)
[2021-03-07] VITALS (57 sets, daily range): BP systolic 96–126; BP diastolic 55–76; PULSE 44–69; RESP 15–33; TEMP 35.7–36.8; O2SAT 77–99
[2021-03-07 04:54] LABS: Add Manual Diff / Slide Review NO; Basophils Absolute Auto 0 /uL (0-100); Basophils Percent Auto 0.3 % (0-2); Eosinophils Absolute Auto 0 /uL (0-450); Hematocrit 43.5 % (41-53); Hemoglobin 14.1 g/dL (13.5-17.5); Lymphocytes Absolute Auto 1400 /uL (1100-4500); Lymphocytes Percent Auto 12.5 % (25-40); Mean Corpuscular HGB Conc 32.4 % (30-36); Mean Corpuscular Volume 92.8 fL (80-100); Monocytes Absolute Auto 800 /uL (0-900); Monocytes Percent Auto 7.3 % (3-14); Neutrophils Absolute Auto 9000 /uL (1500-7000); Neutrophils Percent Auto 79.9 % (50-75); Platelet Count 254 X10^3/uL (150-400); Red Blood Cell Count 4.69 X10^6/uL (4.5-5.9); Red Cell Distribution Width 13.9 % (11.6-14.8); White Blood Cell Count 11.2 X10^3/uL (4.5-11.0)
[2021-03-07 06:00] LABS: Alanine Aminotransferase 39 IU/L (<50); Albumin 3.5 g/dL (3.5-5.0); Albumin Globulin Ratio 1.2 (1.0-2.8); Alkaline Phosphatase 64 U/L (38-126); Aspartate Aminotransferase 76 IU/L (17-59); BUN Creatinine Ratio 25.9 (6-22); Bilirubin Total 0.7 mg/dL (0.2-1.3); Blood Urea Nitrogen 57 mg/dL (9-20); Calcium 8.4 mg/dL (8.4-10.2); Carbon Dioxide 18 mmol/L (22-32); Chloride 110 mmol/L (98-107); HEMOLYSIS 16 (0-50); Potassium 4.2 mmol/L (3.4-5.1); Sodium 143 mmol/L (137-145); Total Protein 6.5 g/dL (6.3-8.2)
[2021-03-07 06:12] LABS: Troponin I < 0.012 ng/mL (0.01-0.034)
[2021-03-07 06:13] LABS: Glucose 437 mg/dL (80-110)
[2021-03-07] MEDS: INSULIN LISPRO 100 UNIT/ML 3ML VIAL SUBCUT ×5 (06:41→20:13)
[2021-03-07] MEDS: BARICITINIB 2 MG TABLET 1 MG PO (08:34)
[2021-03-07] MEDS: ENOXAPARIN 40 MG/0.4 ML SYRINGE SUBCUT (08:34)
[2021-03-07] MEDS: DOCUSATE 100 MG CAPSULE PO ×2 (08:34→20:14)
[2021-03-07] MEDS: MAGNESIUM HYDROXIDE 30 ML UDC PO ×2 (08:34→20:14)
[2021-03-07] MEDS: INSULIN GLARGINE 100 UNIT/ML 3ML PEN 10 UNIT SUBCUT (08:35)
--- NOTE | 2021-03-07 09:36 | PM.PN.EICU ---
Subjective Subjective :: This patient was seen via real time interactive two-way audiovisual telecommunication. No acute issues overnight. Net negative 2.2 liters. Cr improving slowly with diuresis. Awaiting to be transfer to tertiary center when ICU bed becomes available. Current Medications Current Medications Medications: Home Medications felodipine 2.5 mg tablet,extended release 24 hr 2.5 mg PO DAILY 03/06/21 [History Confirmed 03/06/21] losartan 100 mg tablet 100 mg DAILY 03/06/21 [History Confirmed 03/06/21] metformin 500 mg tablet,extended release 24 hr 500 mg PO DAILY 03/06/21 [History Confirmed 03/06/21] Visit Medications (administered) Generic Name Dose Route Start Last Admin Trade Name Freq PRN Reason Stop Dose Admin Docusate Sodium 100 mg 03/06/21 21:00 03/07/21 08:34 Docusate 100 Mg Capsule PO 100 mg BID CARRILLO Administration Enoxaparin Sodium 40 mg 03/07/21 09:00 03/07/21 08:34 Enoxaparin 40 Mg/0.4 Ml Syringe SUBCUT 40 mg DAILY CARRILLO Administration Furosemide 40 mg 03/07/21 00:00 03/06/21 23:58 Furosemide 40 Mg/4 Ml Vial IV 40 mg Q12HR CARRILLO Administration Insulin Glargine 20 unit 03/06/21 21:00 03/06/21 21:31 Insulin Glargine 100 Unit/Ml 3ml Pen SUBCUT 20 unit BEDTIME CARRILLO Administration Insulin Glargine 10 unit 03/07/21 09:00 03/07/21 08:35 Insulin Glargine 100 Unit/Ml 3ml Pen SUBCUT 10 unit DAILY CARRILLO Administration Insulin Human Lispro 0 unit 03/06/21 21:00 03/07/21 09:28 Insulin Lispro 100 Unit/Ml 3ml Vial SUBCUT 8 unit ACHS CARRILLO Administration Protocol Magnesium Hydroxide 30 ml 03/06/21 21:00 03/07/21 08:34 Magnesium Hydroxide 30 Ml Udc PO 30 ml BID CARRILLO Administration Objective Ventilator Parameters: Ventilator Settings FiO2 83 Labs Result Diagrams: 03/07/21 04:37 03/07/21 05:30 Labs: Laboratory Results - last 24 hr 03/06/21 03/06/21 03/06/21 09:50 09:50 10:00 WBC 11.0 RBC 4.94 Hgb 15.0 Hct 45.7 MCV 92.6 MCH 30.3 MCHC 32.7 RDW 14.1 Plt Count 234 Neut % (Auto) 70.4 Lymph % (Auto) 22.0 L [place] % (Auto) 6.9 Eos % (Auto) 0.1 L Baso % (Auto) 0.6 Neut # (Auto) 7700 H Lymph # (Auto) 2400 [place] # (Auto) 800 Eos # (Auto) 0 Baso # (Auto) 100 D-Dimer ABG pH ABG pCO2 ABG pO2 ABG HCO3 ABG Total CO2 ABG O2 Saturation ABG Base Excess FiO2 Sodium Potassium Chloride Carbon Dioxide BUN Creatinine Estimated GFR BUN/Creatinine Ratio Glucose Lactate Calcium Ferritin Total Bilirubin AST ALT Alkaline Phosphatase Lactate Dehydrogenase Total Creatine Kinase CK-MB (CK-2) CK-MB (CK-2) Rel Index Troponin I C-Reactive Protein NT-Pro-B Natriuret Pep Total Protein Albumin Globulin Albumin/Globulin Ratio Lipase Procalcitonin Nasal Screen MRSA (PCR) SARS-CoV-2 (PCR) Positive H Positive H 03/06/21 03/06/21 03/06/21 10:00 10:00 10:00 WBC RBC Hgb Hct MCV MCH MCHC RDW Plt Count Neut % (Auto) Lymph % (Auto) [place] % (Auto) Eos % (Auto) Baso % (Auto) Neut # (Auto) Lymph # (Auto) [place] # (Auto) Eos # (Auto) Baso # (Auto) D-Dimer ABG pH ABG pCO2 ABG pO2 ABG HCO3 ABG Total CO2 ABG O2 Saturation ABG Base Excess FiO2 Sodium 146 H Potassium 3.8 Chloride 110 H Carbon Dioxide 21 L BUN 46 H Creatinine 2.75 H Estimated GFR 23.2 L BUN/Creatinine Ratio 16.7 Glucose 68 L Lactate 1.6 Calcium 8.6 Ferritin Total Bilirubin 0.7 AST 108 H ALT 44 Alkaline Phosphatase 68 Lactate Dehydrogenase Total Creatine Kinase 277 H CK-MB (CK-2) 1.57 CK-MB (CK-2) Rel Index 0.6 L Troponin I 0.028 C-Reactive Protein NT-Pro-B Natriuret Pep 300 H Total Protein 7.3 Albumin 4.0 Globulin 3.3 Albumin/Globulin Ratio 1.2 Lipase 162 Procalcitonin 0.83 H Nasal Screen MRSA (PCR) SARS-CoV-2 (PCR) 03/06/21 03/06/21 03/06/21 10:00 10:00 10:04 WBC RBC Hgb Hct MCV MCH MCHC RDW Plt Count Neut % (Auto) Lymph % (Auto) [place] % (Auto) Eos % (Auto) Baso % (Auto) Neut # (Auto) Lymph # (Auto) [place] # (Auto) Eos # (Auto) Baso # (Auto) D-Dimer 2045 H ABG pH 7.43 ABG pCO2 27.5 L ABG pO2 58 L ABG HCO3 18 L ABG Total CO2 19 L ABG O2 Saturation 91 L ABG Base Excess -6.0 L FiO2 100 Sodium Potassium Chloride Carbon Dioxide BUN Creatinine Estimated GFR BUN/Creatinine Ratio Glucose Lactate Calcium Ferritin 1270 H Total Bilirubin AST ALT Alkaline Phosphatase Lactate Dehydrogenase 2431 H Total Creatine Kinase CK-MB (CK-2) CK-MB (CK-2) Rel Index Troponin I C-Reactive Protein 32.0 H NT-Pro-B Natriuret Pep Total Protein Albumin Globulin Albumin/Globulin Ratio Lipase Procalcitonin Nasal Screen MRSA (PCR) SARS-CoV-2 (PCR) 03/06/21 03/07/21 03/07/21 16:25 04:37 05:30 WBC 11.2 H RBC 4.69 Hgb 14.1 Hct 43.5 MCV 92.8 MCH 30.0 MCHC 32.4 RDW 13.9 Plt Count 254 Neut % (Auto) 79.9 H Lymph % (Auto) 12.5 L [place] % (Auto) 7.3 Eos % (Auto) 0.0 L Baso % (Auto) 0.3 Neut # (Auto) 9000 H Lymph # (Auto) 1400 [place] # (Auto) 800 Eos # (Auto) 0 Baso # (Auto) 0 D-Dimer ABG pH ABG pCO2 ABG pO2 ABG HCO3 ABG Total CO2 ABG O2 Saturation ABG Base Excess FiO2 Sodium 143 Potassium 4.2 Chloride 110 H Carbon Dioxide 18 L BUN 57 H Creatinine 2.20 H Estimated GFR 30.0 L BUN/Creatinine Ratio 25.9 H Glucose 437 H D Lactate Calcium 8.4 Ferritin Total Bilirubin 0.7 AST 76 H ALT 39 Alkaline Phosphatase 64 Lactate Dehydrogenase Total Creatine Kinase CK-MB (CK-2) CK-MB (CK-2) Rel Index Troponin I < 0.012 C-Reactive Protein NT-Pro-B Natriuret Pep Total Protein 6.5 Albumin 3.5 Globulin 3.0 Albumin/Globulin Ratio 1.2 Lipase Procalcitonin Nasal Screen MRSA (PCR) Negative for mrsa SARS-CoV-2 (PCR) Exam Vital Signs (past 8 hours): - 03/07/21 02:10 03/07/21 04:02 03/07/21 04:43 Temperature 97.8 F Pulse Rate 51 L 47 L 49 L Respiratory Rate 26 H 24 22 Blood Pressure 126/67 126/67 96/55 L Pulse Oximetry 97 97 98 03/07/21 05:48 Temperature Pulse Rate 52 L Respiratory Rate 23 Blood Pressure 96/55 L Pulse Oximetry 92 Fraction of Inspired Oxygen 100 Oxygen Delivery Method Heated High Flow Oxygen Flow Rate 40 Narrative Exam Narrative: On HFNC and proning Assessment & Plan Assessment & Plan narrative: NEURO: -- Encourage ROM while in bed as tolerated RESP: # Acute hypoxemia respiratory failure -- Secondary to COVID pneumonia -- On HFNC 65/95% -- COVID rx as below -- Monitor closely for the need for intubation -- Cont gentle diuresis to seek net negative fluid balance -- Cont self proning as tolerated -- Goal SpO2 > 88% CVS: # Hx of HTN -- Current BP ~90/60s -- Cont gentle diuresis -- Goal SBP < 140 ID: # Pneumonia due to COVID-19 -- Risk factors -> DM, HTN, obesity, and age -- Trend CRP, LDH, troponin, ferritin, D dimer, and LFT -- Cont decadron 6 mg X 10 days -- Restarted back on remdesivir per hospitalist -- Cont baricitinib (renally dose by pharmacy) X 14 days -- Recommend checking venous duplex in upper and lower extremities to rule out VTE -- Avoid NSAIDs -- Encourage self prone as tolerated (ie, 2 hours supine and 2 hours prone) -- Cont gentle diuresis to seek net negative fluid balance -- On strict contact, droplet/airborne, eye protection, and critical meticulous hand hygiene : # Acute renal failure -- Unknown baseline cr -- Secondary to COVID -19 -- Cr improving slowly with diuresis -- Cont lasix 40 mg IV BID to seek net negative fluid balance -- Avoid nephrotoxin agents -- Daily BMP -- Awaiting for open beds from tertiary centeras patient may need renal replacement therapy during this hospitalization # Metabolic acidosis -- Secondary to acute renal failure -- Co2 down to 18 -- Daily BMP -- Awaiting for open beds from tertiary center ENDO: # DM -- BS ~300-400 -- On ISS and added latnus this morning -- Accucheck AC QHS -- Goal BS < 180 Time Spent With Patient Critical Care time: I spent a total of 36 minutes of critical care time on this patient's care today; this time is exclusive of procedural time.
[2021-03-07] MEDS: DEXAMETHASONE 10 MG/ML VIAL 6 MG IV (09:38)
[2021-03-07] MEDS: ACETAMINOPHEN 325 MG TABLET 650 MG PO (10:16)
[2021-03-07] MEDS: FUROSEMIDE 40 MG/4 ML VIAL IV ×2 (12:35→23:02)
--- NOTE | 2021-03-07 13:07 | DIET.PN1 ---
Dietary Progress Note Assessment: 65y M admitted for SOB and acute renal failure r/t covid19+ status screened by RD for poor POs. Pt fatigues and desaturates with intake of foods requiring much chewing, this paired with pts poor appetite leading to POs ~10%. Kitchen so send easy to chew meals c ONS Ensure Max bid to support energy and protein needs. Renal fxn improving c diuresis. RD to monitor r/t ONS intake. Following POs. Ht: 180.34 cm Wt: 111 kg BMI: 34.1 MNA: Jose Angel Score: 18 Diet: 03/06/21 Dinner Carbohydrate Consistent Diet Diet Modifications: easy to eat foods, Ensure Max bid Carbohydrate level: Large (4 CHO) Bedtime snack: No Nutrition Percent Meal Consumed 10 03/07/21 10:44 Labs: RBC 4.69 X10^6/uL (4.5-5.9) 03/07/21 04:37 Hgb 14.1 g/dL (13.5-17.5) 03/07/21 04:37 Hct 43.5 % (41-53) 03/07/21 04:37 Creatinine 2.20 mg/dL (0.66-1.25) H 03/07/21 05:30 Lactate 1.6 mmol/L (0.7-2.1) 03/06/21 10:00 Ferritin 1270 ng/mL (18-464) H 03/06/21 10:00 NT-Pro-B Natriuret Pep 300 pg/mL (<125) H 03/06/21 10:00 Electronically Signed by: Christine Gomez 03/07/21 13:07 Clinical Dietitian [address] [address]
--- NOTE | 2021-03-07 14:20 | PC.NURSE ---
Addendum entered by Annie Austin R.N. 03/07/21 14:48: PT HAD REMOVED HHFNC AND WAS ON ONLY NRB 15L AND SPO2 90-93% SIDE-LYING ON RIGHT Original Note: PT PRONING MOST OF SHIFT OTHER THAN MEAL TIME IN WHICH HE SITS ON EDGE OF BED- OCCASIONALLY REQUIRING ADDITION OF NRB AT 15L TO THE HHFNC SET AT 60L/95% - SPO2 86%-98%, AND PT REPORTS FEELING SOME BETTER TODAY- IN NEED OF BM - RX GIVEN- CERVANTES PATENT WITH BRISK DIURESIS FOLLOWING IV LASIX TREATMENT- SKIN INTACT
--- NOTE | 2021-03-07 15:29 | CM.IDA ---
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 Yes History Provided By Patient Prior Living Arrangements House Household Members spouse Type of transporation used prior to Drives own vehicle admit Independent with ADL's Yes Is patient alert and oriented? Yes Barriers to Discharge Yes Comment Severely hypoxic, COVID-19+ pnuemonia, acute kidney injury Discharge Plan Home Transportation Arrangement Likely family Referrals Initiated None needed Additional Comment At this time Will plan to follow closely for coordination of the safest DCP available to patient at this time. Patient currently on heated high flow, medical plan of care unfolding. Possible transfer to higher level of care HEENA Horton
--- NOTE | 2021-03-07 16:48 | PM.PN.1 ---
Subjective Subjective Date Patient Seen: 03/07/21 Time Patient Seen: 16:48 Interval history: Patient denies chest pain, reports improved shortness of breath but still on high amounts of oxygen. Exam Vital Signs (past 8 hours): - 03/07/21 08:55 03/07/21 10:45 03/07/21 14:00 Temperature 96.3 F L Pulse Rate 62 56 L 52 L Respiratory Rate 25 H 24 22 Blood Pressure 114/71 Pulse Oximetry 93 93 98 Fraction of Inspired Oxygen 95 Oxygen Delivery Method Heated High Flow Oxygen Flow Rate 60 Narrative Exam Narrative: GENERAL APPEARANCE: Well developed, well nourished, but ill appearing and fatigued, no acute distress. SKIN: Inspection of the skin reveals no rashes, ulcerations or petechiae. HEENT: Normocephalic atraumatic, extraocular muscles are intact, oropharynx is clear and mucous membranes are moist, neck is supple without adenopathy LUNGS: decreased breath sound bilateral lung bases, no obvious wheezing, rhochi, or rales. CARDIOVASCULAR: There was a regular rate and rhythm without any murmurs, gallops, rubs. Peripheral pulses were 2+ and symmetric. ABDOMEN: S NT ND. MUSCULOSKELETAL: There was no tenderness or effusions noted. Muscle strength and tone were normal. EXTREMITIES: No cyanosis, clubbing or edema. NEUROLOGIC: Alert and oriented x 3. Normal affect. Strength is +5/5 in the Upper Extremities and Lower Extremities Bilaterally. Objective Labs Result Diagrams: 03/07/21 04:37 03/07/21 05:30 Labs: Laboratory Results - last 24 hr 03/06/21 03/07/21 03/07/21 16:25 04:37 05:30 WBC 11.2 H RBC 4.69 Hgb 14.1 Hct 43.5 MCV 92.8 MCH 30.0 MCHC 32.4 RDW 13.9 Plt Count 254 Neut % (Auto) 79.9 H Lymph % (Auto) 12.5 L [place] % (Auto) 7.3 Eos % (Auto) 0.0 L Baso % (Auto) 0.3 Neut # (Auto) 9000 H Lymph # (Auto) 1400 [place] # (Auto) 800 Eos # (Auto) 0 Baso # (Auto) 0 Sodium 143 Potassium 4.2 Chloride 110 H Carbon Dioxide 18 L BUN 57 H Creatinine 2.20 H Estimated GFR 30.0 L BUN/Creatinine Ratio 25.9 H Glucose 437 H D Calcium 8.4 Total Bilirubin 0.7 AST 76 H ALT 39 Alkaline Phosphatase 64 Troponin I < 0.012 Total Protein 6.5 Albumin 3.5 Globulin 3.0 Albumin/Globulin Ratio 1.2 Nasal Screen MRSA (PCR) Negative for mrsa REPLACED BY [facility] Medical History Diabetes History of diabetes mellitus Hypertension Family History (Updated 03/06/21 @ 17:44 by Hannah Li MD) Father Cancer Mother Multiple sclerosis Social History marital status: household members: spouse lives independently: Yes Smoking Status: Never smoker Assessment & Plan Assessment & Plan narrative: 65-year-old male with a history of hypertension type 2 diabetes admitted to the hospital with acute respiratory failure secondary to COVID pneumonia 1. Acute respiratory failure with hypoxia, present on admission, secondary to COVID 19 pneumonia. -Chest Xray confirms bilateral interstital infiltrate -Ferritin 1270, AST 108, LDH 2431, CRP, 32.0, Procalcitonin 0.83 -Troponin 0.28 -will continue decadron, baricitinib (renally dosed). Discontinued remdesevir for renal disease and bradycardia. -on lovenox -continue proning -d/c IVF -consider CTA vs US DVT studies. 2. Acute, possibly on Chronic Renal Failure -Creatinine elevated at 2.75, unsure of baseline, improved with diuresis to 2.2 today. -Lactic Acid 1.6 -Losartan on hold -Lasix per [place] 3. Hypertension -blood pressure well controlled -hold losartan and felodipine 4. Type 2 Diabetes -hold metformin and glipizide -basal bolus insulin, hyperglycemic added 10 Units AM with 20 units nightly. Will continue to increase today now up to 25 at night and 15 daily starting tomorrow. Continue to adjust. DVT prophylaxis: lovenox Patient is a full code. His is his surrogate decision maker. If the patient required intubation he would want this. IF tracheostomy was required he would want this as well I have utilized all available resources to review update, and confirm his current medications 30 mins critical care time spent with this patient COVID-19 COVID-19 status: Positive Time Spent With Patient Critical Care time: I spent a total of [] minutes of critical care time on this patient's care today; this time is exclusive of procedural time.
[2021-03-07] MEDS: INSULIN GLARGINE 100 UNIT/ML 3ML PEN 25 UNIT SUBCUT (20:13)
--- NOTE | 2021-03-07 20:51 | PM.ICURNDS ---
- Date Patient Seen: 03/07/21 Time Patient Seen: 20:49 :: This patient was seen via real time interactive two-way audiovisual telecommunication. Note: Patient is self-proned on camera and FiO2 is down to 85%. Glycemic control remains suboptimal but SUBQ insulin therapy was adjusted earlier today; awaiting response to dose adjustment. Continue present management; discussed with RN and RT.
[2021-03-08] VITALS (17 sets, daily range): BP systolic 89–116; BP diastolic 53–80; PULSE 41–74; RESP 16–28; TEMP 35.7–36.6; O2SAT 88–98
[2021-03-08 07:45] LABS: Add Manual Diff / Slide Review NO; Basophils Absolute Auto 200 /uL (0-100); Basophils Percent Auto 1.5 % (0-2); Eosinophils Absolute Auto 0 /uL (0-450); Hematocrit 43.2 % (41-53); Lymphocytes Absolute Auto 900 /uL (1100-4500); Lymphocytes Percent Auto 5.5 % (25-40); Mean Corpuscular HGB Conc 32.5 % (30-36); Mean Corpuscular Hemoglobin 30.1 PG (26-34); Mean Corpuscular Volume 92.5 fL (80-100); Monocytes Absolute Auto 900 /uL (0-900); Monocytes Percent Auto 5.6 % (3-14); Neutrophils Absolute Auto 14300 /uL (1500-7000); Neutrophils Percent Auto 87.4 % (50-75); Platelet Count 246 X10^3/uL (150-400); Red Blood Cell Count 4.67 X10^6/uL (4.5-5.9); Red Cell Distribution Width 13.9 % (11.6-14.8); White Blood Cell Count 16.4 X10^3/uL (4.5-11.0)
[2021-03-08 07:59] LABS: Alanine Aminotransferase 33 IU/L (<50); Albumin 3.5 g/dL (3.5-5.0); Albumin Globulin Ratio 1.1 (1.0-2.8); Alkaline Phosphatase 65 U/L (38-126); Aspartate Aminotransferase 50 IU/L (17-59); BUN Creatinine Ratio 33.8 (6-22); Bilirubin Total 0.6 mg/dL (0.2-1.3); Blood Urea Nitrogen 70 mg/dL (9-20); Calcium 8.6 mg/dL (8.4-10.2); Carbon Dioxide 24 mmol/L (22-32); Chloride 109 mmol/L (98-107); Estimated Glomerular Filt Rate 32.2 mL/min (>60); Globulin 3.1 g/dL (1.7-4.1); Glucose 355 mg/dL (80-110); HEMOLYSIS < 15 (0-50); Magnesium 2.4 mg/dL (1.6-2.3); Potassium 4.5 mmol/L (3.4-5.1); Sodium 145 mmol/L (137-145); Total Protein 6.6 g/dL (6.3-8.2)
[2021-03-08] MEDS: DEXAMETHASONE 10 MG/ML VIAL 6 MG IV (08:18)
[2021-03-08] MEDS: INSULIN GLARGINE 100 UNIT/ML 3ML PEN 15 UNIT SUBCUT (08:19)
[2021-03-08] MEDS: INSULIN LISPRO 100 UNIT/ML 3ML VIAL SUBCUT ×3 (08:20→20:35)
[2021-03-08] MEDS: MAGNESIUM HYDROXIDE 30 ML UDC PO ×2 (08:22→20:39)
[2021-03-08] MEDS: DOCUSATE 100 MG CAPSULE PO ×2 (08:22→20:39)
[2021-03-08] MEDS: BARICITINIB 2 MG TABLET 1 MG PO (08:22)
[2021-03-08] MEDS: ENOXAPARIN 40 MG/0.4 ML SYRINGE SUBCUT (08:24)
[2021-03-08 09:30] LABS: Procalcitonin 0.55 ng/mL (<0.5)
--- NOTE | 2021-03-08 09:37 | DI.US.S_ITS ---
PROCEDURE: US PERIPH VENOUS UP EXTREM SOLANGE INDICATIONS: RULE OUT DEEP VEIN THROMBOSIS. COVID POSITIVE. TECHNIQUE: Real-time imaging, as well as color and pulse Doppler interrogation, was performed of both upper extremity deep veins from the inferior neck to the antecubital fossa. COMPARISON: None. FINDINGS: Right: There are occlusive filling defect in the mid subclavian vein and brachial vein basilic vein consistent with DVT. Filling defect is also noted in the basilic vein. The internal jugular vein is patent. Left: The internal jugular veins, visualized portions of the subclavian veins, axillary veins, and brachial veins are free of intraluminal thrombus. Where physically possible, the veins are normally compressible. Color and pulse Doppler demonstrate normal intraluminal flow, with expected phasicity and pulsatility. Additional scanning of the cephalic and basilic veins of the superficial system demonstrate normal compressibility, without thrombus. IMPRESSION: 1. Positive for DVT of the right upper extremity. 2. Negative for DVT of the left left extremity. The result was discussed with ICU nurse Nancy. Dictated by: Alban Miller M.D. on 03/08/2021 at 23:11 Approved by: Alban Miller M.D. on 03/08/2021 at 23:14
--- NOTE | 2021-03-08 09:37 | DI.US.S_ITS ---
PROCEDURE: US PERIPH VENOUS LOW EXTREM BI INDICATIONS: RULE OUT DEEP VEIN THROMBOSIS. COVID POSITIVE. TECHNIQUE: Real-time imaging, as well as color and pulse Doppler interrogation, were performed of the deep veins of both legs from the inguinal ligament to the popliteal fossa. COMPARISON: None. FINDINGS: Right: The common femoral, femoral and popliteal veins are normally compressible, and free of intraluminal thrombus. Color and pulse Doppler demonstrate normal phasic intravascular flow. There is normal augmentation response to distal compression maneuver. Left: The common femoral, femoral and popliteal veins are normally compressible, and free of intraluminal thrombus. Color and pulse Doppler demonstrate normal phasic intravascular flow. There is normal augmentation response to distal compression maneuver. IMPRESSION: No DVT in lower extremities. Dictated by: Alban Miller M.D. on 03/08/2021 at 23:10 Approved by: Alban Miller M.D. on 03/08/2021 at 23:11
--- NOTE | 2021-03-08 09:43 | DI.RAD.S_ITS ---
PROCEDURE: XR CHEST 1V INDICATIONS: leukocytosis, assess for possible superimposed infiltrate TECHNIQUE: One view of the chest was acquired. COMPARISON: [facility], CR, XR CHEST 1V, 03/06/2021, 10:16. FINDINGS: Surgical changes and devices: None. Lungs and pleura: Reduced lung markings with prominence of the bronchovascular markings. Lungs are clear. No pleural effusions or pneumothorax. Mediastinum: Mediastinal contours appear normal. Heart size is normal. Bones and chest wall: No suspicious bony lesions. Overlying soft tissues appear unremarkable. Persistent elevation of the right diaphragm. IMPRESSION: No acute cardiopulmonary abnormality. Dictated by: Marcos Ponce M.D. on 03/08/2021 at 10:20 Approved by: Marcos Ponce M.D. on 03/08/2021 at 10:22
--- NOTE | 2021-03-08 09:55 | PM.PN.EICU ---
Subjective Subjective :: This patient was seen via real time interactive two-way audiovisual telecommunication. No acute issues overnight. Currently on HFNC 60/80%. Tolerating proning and PO intake. Current Medications Current Medications Medications: Home Medications felodipine 2.5 mg tablet,extended release 24 hr 2.5 mg PO DAILY 03/06/21 [History Confirmed 03/06/21] losartan 100 mg tablet 100 mg DAILY 03/06/21 [History Confirmed 03/06/21] metformin 500 mg tablet,extended release 24 hr 500 mg PO DAILY 03/06/21 [History Confirmed 03/06/21] Visit Medications (administered) Generic Name Dose Route Start Last Admin Trade Name Freq PRN Reason Stop Dose Admin Acetaminophen 650 mg 03/06/21 17:30 03/07/21 10:16 Acetaminophen 325 Mg Tablet PO 650 mg Q6HR PRN Administration Fever Dexamethasone 6 mg 03/07/21 09:00 03/08/21 08:18 Dexamethasone 10 Mg/Ml Vial IV 6 mg DAILY CARRILLO Administration Docusate Sodium 100 mg 03/06/21 21:00 03/08/21 08:22 Docusate 100 Mg Capsule PO 100 mg BID CARRILLO Administration Enoxaparin Sodium 40 mg 03/07/21 09:00 03/08/21 08:24 Enoxaparin 40 Mg/0.4 Ml Syringe SUBCUT 40 mg DAILY CARRILLO Administration Furosemide 40 mg 03/07/21 00:00 03/07/21 23:02 Furosemide 40 Mg/4 Ml Vial IV 40 mg Q12HR CARRILLO Administration Heparin Sodium (Porcine) 50 unit 03/08/21 09:00 03/08/21 08:24 Heparin Flush (Cl/Picc/Mid-Line) 50 Unit/5 Ml Syringe IV 50 unit BID CARRILLO Administration Insulin Glargine 25 unit 03/07/21 21:00 03/07/21 20:13 Insulin Glargine 100 Unit/Ml 3ml Pen SUBCUT 25 unit BEDTIME CARRILLO Administration Insulin Glargine 15 unit 03/08/21 09:00 03/08/21 08:19 Insulin Glargine 100 Unit/Ml 3ml Pen SUBCUT 15 unit DAILY CARRILLO Administration Insulin Human Lispro 0 unit 03/06/21 21:00 03/08/21 08:20 Insulin Lispro 100 Unit/Ml 3ml Vial SUBCUT 8 unit ACHS CARRILLO Administration Protocol Magnesium Hydroxide 30 ml 03/06/21 21:00 03/08/21 08:22 Magnesium Hydroxide 30 Ml Udc PO 30 ml BID CARRILLO Administration Objective Ventilator Parameters: Ventilator Settings FiO2 83 Labs Result Diagrams: 03/08/21 07:14 03/08/21 07:14 Labs: Laboratory Results - last 24 hr 03/08/21 03/08/21 03/08/21 07:14 07:14 07:14 WBC 16.4 H RBC 4.67 Hgb 14.0 Hct 43.2 MCV 92.5 MCH 30.1 MCHC 32.5 RDW 13.9 Plt Count 246 Neut % (Auto) 87.4 H Lymph % (Auto) 5.5 L [place] % (Auto) 5.6 Eos % (Auto) 0.0 L Baso % (Auto) 1.5 Neut # (Auto) 80244 H Lymph # (Auto) 900 L [place] # (Auto) 900 Eos # (Auto) 0 Baso # (Auto) 200 H Sodium 145 Potassium 4.5 Chloride 109 H Carbon Dioxide 24 BUN 70 H Creatinine 2.07 H Estimated GFR 32.2 L BUN/Creatinine Ratio 33.8 H Glucose 355 H Calcium 8.6 Magnesium 2.4 H Total Bilirubin 0.6 AST 50 ALT 33 Alkaline Phosphatase 65 Total Protein 6.6 Albumin 3.5 Globulin 3.1 Albumin/Globulin Ratio 1.1 Procalcitonin 0.55 H Exam Vital Signs (past 8 hours): - 03/08/21 04:00 03/08/21 05:21 03/08/21 08:00 Temperature 97.0 F L Pulse Rate 42 L 41 L 56 L Respiratory Rate 22 20 21 Blood Pressure 116/67 116/67 111/63 Pulse Oximetry 98 93 89 L Fraction of Inspired Oxygen 80 Oxygen Delivery Method Heated High Flow Oxygen Flow Rate 60 Assessment & Plan Assessment & Plan narrative: NEURO: -- Cont ROM while in bed as tolerated RESP: # Acute hypoxemia respiratory failure -- Secondary to COVID pneumonia -- FiO2 down to 80% -- COVID rx as below -- Cont gentle diuresis to seek net negative fluid balance -- Cont self proning as tolerated -- Goal SpO2 > 88% ID: # Pneumonia due to COVID-19 -- Risk factors -> DM, HTN, obesity, and age -- Trend CRP, LDH, troponin, ferritin, D dimer, and LFT -- Cont decadron 6 mg X 10 days -- Restarted back on remdesivir per hospitalist -- Cont baricitinib (renally dose by pharmacy) X 14 days -- Pending checking venous duplex in upper and lower extremities to rule out VTE -- Avoid NSAIDs -- Encourage self prone as tolerated (ie, 2 hours supine and 2 hours prone) -- Cont gentle diuresis to seek net negative fluid balance -- On strict contact, droplet/airborne, eye protection, and critical meticulous hand hygiene : # Acute renal failure -- Unknown baseline cr -- Secondary to COVID -19 -- Cr improving slowly with diuresis -- BUN up to 70 -- Recommend decrease lasix to 20 mg BID to avoid net positive fluid balance -- Avoid nephrotoxin agents -- Daily BMP -- Awaiting for open beds from tertiary center patient may need renal replacement therapy during this hospitalization # Metabolic acidosis -- Secondary to acute renal failure -- Resolved -- Daily BMP ENDO: # DM -- BS ~300-400 -- On ISS -- On lantus 25/15 -- Recommend increase lantus and correction factor -- Goal BS < 180 Case discussed with RN and hospitalist. Time Spent With Patient Critical Care time: I spent a total of [] minutes of critical care time on this patient's care today; this time is exclusive of procedural time.
[2021-03-08] MEDS: FUROSEMIDE 40 MG/4 ML VIAL IV (12:02)
[2021-03-08 12:06] LABS: Appearance Urine UA CLEAR; Bilirubin Urine UA NEGATIVE (NEGATIVE); Color Urine UA YELLOW; Glucose Urine UA 1+ g/dL (Negative); Ketones Urine UA NEGATIVE (NEGATIVE); Leukocyte Esterase Urine UA NEGATIVE (NEGATIVE); Nitrite Urine UA NEGATIVE (Negative); Occult Blood Urine UA 3+ (Negative); Protein Urine UA 1+ (Negative); Urobilinogen Urine UA 0.2 E.U./dL (0.2)
[2021-03-08 12:14] LABS: Amorphous Sediment Urine 1+; Bacteria Urine None Seen; Culture Indicated Urine Cult Not Indicated; RBC Urine 5-10/HPF (0-5/HPF); Squamous Epithelial Cell Urine 0-1 /HPF (0-5/HPF); WBC Urine 0-1/HPF (0-5/HPF)
--- NOTE | 2021-03-08 14:28 | PC.NURSE ---
At the beginning of the shift pt was proning with HHF at 60L and 85% with SpO2 at 92%. After sitting up and eating breakfast HHF increase to 60L and 90%. 1230 pt decided not to eat lunch and proned with a resulting increase in SpO2 to 98%. Pt reports fatigue and SOB with exertion. Pt continues to prone into evening shift (1500).
--- NOTE | 2021-03-08 14:46 | P.PN_ITS ---
Subjective Subjective Date Patient Seen: 03/08/21 Time Patient Seen: 14:46 Interval history: Patient denies chest pain, reports improved shortness of breath but still on high amounts of oxygen. Denies abdominal pain, nausea, vomiting, diarrhea. Exam Vital Signs (past 8 hours): - 03/08/21 08:00 03/08/21 09:00 03/08/21 11:00 Temperature Pulse Rate 56 L 42 L 41 L Respiratory Rate 21 22 20 Blood Pressure 111/63 Pulse Oximetry 89 L 92 88 L 03/08/21 12:00 03/08/21 12:40 Temperature 96.3 F L Pulse Rate 54 L 47 L Respiratory Rate 26 H 18 Blood Pressure 116/62 116/62 Pulse Oximetry 93 94 Fraction of Inspired Oxygen 80 Oxygen Delivery Method Heated High Flow Oxygen Flow Rate 60 Narrative Exam Narrative: GENERAL APPEARANCE: Well developed, well nourished, but ill appearing and fatigued, no acute distress. SKIN: Inspection of the skin reveals no rashes, ulcerations or petechiae. HEENT:? Normocephalic atraumatic, extraocular muscles are intact, oropharynx is clear and mucous membranes are moist, neck is supple without adenopathy LUNGS: decreased breath sound bilateral lung bases, no obvious wheezing, rhochi, or rales. CARDIOVASCULAR: There was a regular rate and rhythm without any murmurs, gallops, rubs. Peripheral pulses were 2+ and symmetric. ABDOMEN: S NT ND. MUSCULOSKELETAL: There was no tenderness or effusions noted. Muscle strength and tone were normal. EXTREMITIES: No cyanosis, clubbing or edema. NEUROLOGIC: Alert and oriented x 3. Normal affect. Strength is +5/5 in the Upper Extremities and Lower Extremities Bilaterally. Objective Labs Result Diagrams: 03/08/21 07:14 03/08/21 07:14 Labs: Laboratory Results - last 24 hr 03/08/21 03/08/21 03/08/21 07:14 07:14 07:14 WBC 16.4 H RBC 4.67 Hgb 14.0 Hct 43.2 MCV 92.5 MCH 30.1 MCHC 32.5 RDW 13.9 Plt Count 246 Neut % (Auto) 87.4 H Lymph % (Auto) 5.5 L [place] % (Auto) 5.6 Eos % (Auto) 0.0 L Baso % (Auto) 1.5 Neut # (Auto) 17720 H Lymph # (Auto) 900 L [place] # (Auto) 900 Eos # (Auto) 0 Baso # (Auto) 200 H Sodium 145 Potassium 4.5 Chloride 109 H Carbon Dioxide 24 BUN 70 H Creatinine 2.07 H Estimated GFR 32.2 L BUN/Creatinine Ratio 33.8 H Glucose 355 H Calcium 8.6 Magnesium 2.4 H Total Bilirubin 0.6 AST 50 ALT 33 Alkaline Phosphatase 65 Total Protein 6.6 Albumin 3.5 Globulin 3.1 Albumin/Globulin Ratio 1.1 Procalcitonin 0.55 H Urine Color Urine Appearance Urine pH Ur Specific [place] Urine Protein Urine Glucose (UA) Urine Ketones Urine Occult Blood Urine Nitrate Urine Bilirubin Urine Urobilinogen Ur Leukocyte Esterase Urine RBC Urine WBC Ur Squamous Epith Cells Amorphous Sediment Urine Bacteria Ur Culture Indicated? 03/08/21 11:00 WBC RBC Hgb Hct MCV MCH MCHC RDW Plt Count Neut % (Auto) Lymph % (Auto) [place] % (Auto) Eos % (Auto) Baso % (Auto) Neut # (Auto) Lymph # (Auto) [place] # (Auto) Eos # (Auto) Baso # (Auto) Sodium Potassium Chloride Carbon Dioxide BUN Creatinine Estimated GFR BUN/Creatinine Ratio Glucose Calcium Magnesium Total Bilirubin AST ALT Alkaline Phosphatase Total Protein Albumin Globulin Albumin/Globulin Ratio Procalcitonin Urine Color Yellow Urine Appearance Clear Urine pH 5.0 Ur Specific [place] 1.020 Urine Protein 1+ H Urine Glucose (UA) 1+ H Urine Ketones Negative Urine Occult Blood 3+ H Urine Nitrate Negative Urine Bilirubin Negative Urine Urobilinogen 0.2 Ur Leukocyte Esterase Negative Urine RBC 5-10/hpf H Urine WBC 0-1/hpf Ur Squamous Epith Cells 0-1 /hpf Amorphous Sediment 1+ Urine Bacteria None seen Ur Culture Indicated? Cult not indicated [facility] Medical History Diabetes History of diabetes mellitus Hypertension Family History (Updated 03/06/21 @ 17:44 by Hannah Li MD) Father Cancer Mother Multiple sclerosis Social History marital status: household members: spouse lives independently: Yes Smoking Status: Never smoker Assessment & Plan Assessment & Plan narrative: 65-year-old male with a history of hypertension type 2 diabetes admitted to the hospital with acute respiratory failure secondary to COVID pneumonia 1. Acute respiratory failure with hypoxia, present on admission, secondary to COVID 19 pneumonia. -will continue decadron, baricitinib (renally dosed). Discontinued remdesevir for renal disease and bradycardia. Continue to wean O2 as tolerated, still on heated high flow. -on lovenox -continue proning -rising WBC today, no fever. UA negative. Procalcitonin borderline at 0.55. CXR without obvious changes. UA negative. Consider adding antibiotics depending on trend. Sputum culture ordered. -DVT studies pending, ordered 2. Acute, possibly on Chronic Renal Failure -Creatinine elevated at 2.75, unsure of baseline, improved with diuresis to 2.0. 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 Hypertension -blood pressure well controlled -hold losartan and felodipine 4. Type 2 Diabetes -hold metformin and glipizide -basal bolus insulin, hyperglycemic still. Will increase to 30 BID of long acting. DVT prophylaxis: lovenox Patient is a full code. His is his surrogate decision maker. If the patient required intubation he would want this. IF tracheostomy was required he would want this as well I have utilized all available resources to review update, and confirm his current medications 30 mins critical care time spent with this patient Time Spent With Patient Critical Care time: I spent a total of [] minutes of critical care time on this patient's care today; this time is exclusive of procedural time.
--- NOTE | 2021-03-08 18:31 | PC.NURSE ---
1800 pt up to the [facility] for BM - O2 became disconnected and within short period of time, O2 sats dropped to 59%. O2 reapplied at previous settings of 55L/90% and NRB at 15L supplemented until pt sats > 94%. HR remained bradycardic @ 46bpm, BP 116/70. Returned to bed and resumed L lateral sidelying position. - Shortly after, US tech here to do upper and lower extr check for DVT.
[2021-03-08] MEDS: INSULIN GLARGINE 100 UNIT/ML 3ML PEN 30 UNIT SUBCUT (20:36)
[2021-03-08] MEDS: SODIUM CHLORIDE 0.9% FLUSH 10 ML IV (20:40)
--- NOTE | 2021-03-08 23:33 | PC.NURSE ---
Addendum entered by Natalia Groves R.N. 03/09/21 05:30: Patient slept proned most of night until lab draw in am, SpO2 >93%, now he is lying on his right side, sats 95%. Addendum entered by Natalia Groves R.N. 03/09/21 01:05: 0100-Lovenox SQ changed to 110mg BID, first dose given now, Tylenol given for generalized discomfort. IV Lasix not given at this time d/t DVT in [place], BP 100/57, large amount of pale yellow urine in Mi. Original Note: Water Project Manager [id number] Upper Extrem US to Dr Mark that Dr Miller found positive DVT in RUE mid subclavian and brachial vein where patients PICC line is. No new orderes at this time. Patient is currently sleeping on Rt side, SpO2 >90% on HHF 55L/90% FIO2, RR 20s, HR 40s. Will monitor and allow him to sleep at this time.
--- NOTE | 2021-03-08 23:45 | PM.ICURNDS ---
- Date Patient Seen: 03/08/21 Time Patient Seen: 23:20 :: This patient was seen via real time interactive two-way audiovisual telecommunication. Note: Case discussed with RN. During nocturnal rounds, decision made to continue IV amiodarone @ 1mg/min due to rapid AF. He is hyperglycemic but is due to receive insulin glargine tonight. We will continue the remainder of the current management.
[2021-03-09] VITALS (37 sets, daily range): BP systolic 100–121; BP diastolic 53–68; PULSE 40–70; RESP 0–28; TEMP 36.3–36.6; O2SAT 70–98
[2021-03-09] MEDS: ENOXAPARIN 40 MG/0.4 ML SYRINGE 110 MG SUBCUT (00:43)
[2021-03-09] MEDS: ACETAMINOPHEN 325 MG TABLET 650 MG PO (00:44)
[2021-03-09 04:55] LABS: Add Manual Diff / Slide Review NO; Basophils Absolute Auto 0 /uL (0-100); Basophils Percent Auto 0.3 % (0-2); Eosinophils Absolute Auto 0 /uL (0-450); Hematocrit 44.4 % (41-53); Hemoglobin 14.3 g/dL (13.5-17.5); Lymphocytes Absolute Auto 1700 /uL (1100-4500); Lymphocytes Percent Auto 10.2 % (25-40); Mean Corpuscular HGB Conc 32.3 % (30-36); Mean Corpuscular Volume 92.8 fL (80-100); Monocytes Absolute Auto 1100 /uL (0-900); Monocytes Percent Auto 6.5 % (3-14); Neutrophils Absolute Auto 13800 /uL (1500-7000); Platelet Count 250 X10^3/uL (150-400); Red Blood Cell Count 4.78 X10^6/uL (4.5-5.9); Red Cell Distribution Width 14.3 % (11.6-14.8); White Blood Cell Count 16.6 X10^3/uL (4.5-11.0)
[2021-03-09 05:04] LABS: Alanine Aminotransferase 34 IU/L (<50); Albumin 3.6 g/dL (3.5-5.0); Albumin Globulin Ratio 1.1 (1.0-2.8); Alkaline Phosphatase 71 U/L (38-126); Aspartate Aminotransferase 52 IU/L (17-59); BUN Creatinine Ratio 41.1 (6-22); Bilirubin Total 0.7 mg/dL (0.2-1.3); Blood Urea Nitrogen 81 mg/dL (9-20); Calcium 8.9 mg/dL (8.4-10.2); Carbon Dioxide 27 mmol/L (22-32); Chloride 106 mmol/L (98-107); Estimated Glomerular Filt Rate 34.1 mL/min (>60); Globulin 3.2 g/dL (1.7-4.1); Glucose 250 mg/dL (80-110); HEMOLYSIS < 15 (0-50); Magnesium 2.9 mg/dL (1.6-2.3); Potassium 4.8 mmol/L (3.4-5.1); Sodium 144 mmol/L (137-145); Total Protein 6.8 g/dL (6.3-8.2)
[2021-03-09] MEDS: DOCUSATE 100 MG CAPSULE PO ×2 (08:37→20:50)
[2021-03-09] MEDS: BARICITINIB 2 MG TABLET 1 MG PO (08:37)
[2021-03-09] MEDS: INSULIN GLARGINE 100 UNIT/ML 3ML PEN 30 UNIT SUBCUT (08:38)
[2021-03-09] MEDS: INSULIN LISPRO 100 UNIT/ML 3ML VIAL SUBCUT ×4 (08:38→20:50)
--- NOTE | 2021-03-09 09:31 | PM.PN.EICU ---
Subjective Subjective :: This patient was seen via real time interactive two-way audiovisual telecommunication. patient has increasing fio2 requirements. Currently @ 90% today. Bicabr level is wnl though. XR from today is pending. gets profoundly hypoxemic with exertion Current Medications Current Medications Medications: Home Medications felodipine 2.5 mg tablet,extended release 24 hr 2.5 mg PO DAILY 03/06/21 [History Confirmed 03/06/21] losartan 100 mg tablet 100 mg DAILY 03/06/21 [History Confirmed 03/06/21] metformin 500 mg tablet,extended release 24 hr 500 mg PO DAILY 03/06/21 [History Confirmed 03/06/21] Visit Medications (administered) Generic Name Dose Route Start Last Admin Trade Name Freq PRN Reason Stop Dose Admin Acetaminophen 650 mg 03/06/21 17:30 03/09/21 00:44 Acetaminophen 325 Mg Tablet PO 650 mg Q6HR PRN Administration Fever Dexamethasone 6 mg 03/07/21 09:00 03/08/21 08:18 Dexamethasone 10 Mg/Ml Vial IV 6 mg DAILY CARRILLO Administration Docusate Sodium 100 mg 03/06/21 21:00 03/09/21 08:37 Docusate 100 Mg Capsule PO 100 mg BID CARRILLO Administration Furosemide 40 mg 03/07/21 00:00 03/09/21 01:09 Furosemide 40 Mg/4 Ml Vial IV Not Given Q12HR CARRILLO Heparin Sodium (Porcine) 50 unit 03/08/21 09:00 03/08/21 20:39 Heparin Flush (Cl/Picc/Mid-Line) 50 Unit/5 Ml Syringe IV 50 unit BID CARRILLO Administration Heparin Sodium (Porcine) 50 unit 03/07/21 22:43 03/08/21 12:32 Heparin Flush (Cl/Picc/Mid-Line) 50 Unit/5 Ml Syringe IV 50 unit PRN PRN Administration Flush Insulin Glargine 30 unit 03/08/21 21:00 03/08/21 20:36 Insulin Glargine 100 Unit/Ml 3ml Pen SUBCUT 30 unit BEDTIME CARRILLO Administration Insulin Glargine 30 unit 03/09/21 09:00 03/09/21 08:38 Insulin Glargine 100 Unit/Ml 3ml Pen SUBCUT 30 unit DAILY CARRILLO Administration Insulin Human Lispro 0 unit 03/06/21 21:00 03/09/21 08:38 Insulin Lispro 100 Unit/Ml 3ml Vial SUBCUT 3 unit ACHS CARRILLO Administration Protocol Magnesium Hydroxide 30 ml 03/06/21 21:00 03/09/21 09:06 Magnesium Hydroxide 30 Ml Udc PO Not Given BID [facility] Sodium Chloride 10 ml 03/07/21 22:44 03/08/21 20:40 Sodium Chloride 0.9% Flush IV 10 ml PRN PRN Administration Flush Objective Ventilator Parameters: Ventilator Settings FiO2 83 Labs Result Diagrams: 03/09/21 04:37 03/09/21 04:37 Labs: Laboratory Results - last 24 hr 03/08/21 03/08/21 03/09/21 07:14 11:00 04:37 WBC 16.6 H RBC 4.78 Hgb 14.3 Hct 44.4 MCV 92.8 MCH 30.0 MCHC 32.3 RDW 14.3 Plt Count 250 Neut % (Auto) 83.0 H Lymph % (Auto) 10.2 L [place] % (Auto) 6.5 Eos % (Auto) 0.0 L Baso % (Auto) 0.3 Neut # (Auto) 46534 H Lymph # (Auto) 1700 [place] # (Auto) 1100 H Eos # (Auto) 0 Baso # (Auto) 0 Sodium Potassium Chloride Carbon Dioxide BUN Creatinine Estimated GFR BUN/Creatinine Ratio Glucose Calcium Magnesium Total Bilirubin AST ALT Alkaline Phosphatase Total Protein Albumin Globulin Albumin/Globulin Ratio Procalcitonin 0.55 H Urine Color Yellow Urine Appearance Clear Urine pH 5.0 Ur Specific [place] 1.020 Urine Protein 1+ H Urine Glucose (UA) 1+ H Urine Ketones Negative Urine Occult Blood 3+ H Urine Nitrate Negative Urine Bilirubin Negative Urine Urobilinogen 0.2 Ur Leukocyte Esterase Negative Urine RBC 5-10/hpf H Urine WBC 0-1/hpf Ur Squamous Epith Cells 0-1 /hpf Amorphous Sediment 1+ Urine Bacteria None seen Ur Culture Indicated? Cult not indicated 03/09/21 04:37 WBC RBC Hgb Hct MCV MCH MCHC RDW Plt Count Neut % (Auto) Lymph % (Auto) [place] % (Auto) Eos % (Auto) Baso % (Auto) Neut # (Auto) Lymph # (Auto) [place] # (Auto) Eos # (Auto) Baso # (Auto) Sodium 144 Potassium 4.8 Chloride 106 Carbon Dioxide 27 BUN 81 H Creatinine 1.97 H Estimated GFR 34.1 L BUN/Creatinine Ratio 41.1 H Glucose 250 H D Calcium 8.9 Magnesium 2.9 H Total Bilirubin 0.7 AST 52 ALT 34 Alkaline Phosphatase 71 Total Protein 6.8 Albumin 3.6 Globulin 3.2 Albumin/Globulin Ratio 1.1 Procalcitonin Urine Color Urine Appearance Urine pH Ur Specific [place] Urine Protein Urine Glucose (UA) Urine Ketones Urine Occult Blood Urine Nitrate Urine Bilirubin Urine Urobilinogen Ur Leukocyte Esterase Urine RBC Urine WBC Ur Squamous Epith Cells Amorphous Sediment Urine Bacteria Ur Culture Indicated? Exam Vital Signs (past 8 hours): - 03/09/21 03:08 03/09/21 04:51 03/09/21 04:53 Temperature 97.5 F L Pulse Rate 42 L 41 L 48 L Respiratory Rate 20 19 Blood Pressure 100/57 L 109/56 L 119/56 L Pulse Oximetry 96 97 94 03/09/21 08:00 03/09/21 08:30 Temperature 97.5 F L Pulse Rate 45 L 52 L Respiratory Rate 23 20 Blood Pressure 114/62 114/62 Pulse Oximetry 88 L 90 L Fraction of Inspired Oxygen 90 Oxygen Delivery Method Heated High Flow Oxygen Flow Rate 55 Assessment & Plan Assessment & Plan narrative: a/ acute hypoxemic resp failure due to covid 19 JALEEL P/ continue high flow o2 wean down fio2 as tolerated trend ABG map goal > 65 adat - encourage po intake, may need ensure trend bmp monitor UO - diuresing well dvt ppx continue dexamethasone baricitnib trend infalmmatory makerts high risk for intubation CCT 35 min Time Spent With Patient Critical Care time: I spent a total of [] minutes of critical care time on this patient's care today; this time is exclusive of procedural time.
[2021-03-09] MEDS: ENOXAPARIN 60 MG/0.6 ML SYRINGE 110 MG SUBCUT ×2 (10:02→20:51)
[2021-03-09 10:37] LABS: C-Reactive Protein Quant 6.9 mg/dL (<1.0)
[2021-03-09] MEDS: DEXAMETHASONE 10 MG/ML VIAL 6 MG IV (10:37)
--- NOTE | 2021-03-09 10:47 | PM.PN.1 ---
Subjective Subjective Date Patient Seen: 03/09/21 Interval history: Patient denies chest pain, reports improved shortness of breath but still on high amounts of oxygen. Denies abdominal pain, nausea, vomiting, diarrhea. Hypoxic still with minimal exertion. Inflammatory markers somewhat improved. Exam Vital Signs (past 8 hours): - 03/09/21 03:08 03/09/21 04:51 03/09/21 04:53 Temperature 97.5 F L Pulse Rate 42 L 41 L 48 L Respiratory Rate 20 19 Blood Pressure 100/57 L 109/56 L 119/56 L Pulse Oximetry 96 97 94 03/09/21 08:00 03/09/21 08:30 Temperature 97.5 F L Pulse Rate 45 L 52 L Respiratory Rate 23 20 Blood Pressure 114/62 114/62 Pulse Oximetry 88 L 90 L Fraction of Inspired Oxygen 90 Oxygen Delivery Method Heated High Flow Oxygen Flow Rate 55 Narrative Exam Narrative: GENERAL APPEARANCE: Well developed, well nourished, but ill appearing and fatigued, no acute distress. Proning. SKIN: Inspection of the skin reveals no rashes, ulcerations or petechiae. HEENT:? Normocephalic atraumatic, extraocular muscles are intact, oropharynx is clear and mucous membranes are moist, neck is supple without adenopathy LUNGS: decreased breath sound bilateral lung bases, no obvious wheezing, rhochi, or rales. CARDIOVASCULAR: RRR. peripheral pulses +2. ABDOMEN: unable to examine while proning. MUSCULOSKELETAL: There was no tenderness or effusions noted. Muscle strength and tone were normal. EXTREMITIES: No cyanosis, clubbing or edema. NEUROLOGIC: Alert and oriented x 3. Normal affect. Strength is +5/5 in the Upper Extremities and Lower Extremities Bilaterally. Objective Labs Result Diagrams: 03/09/21 04:37 03/09/21 04:37 Labs: Laboratory Results - last 24 hr 03/08/21 03/09/21 03/09/21 11:00 04:37 04:37 WBC 16.6 H RBC 4.78 Hgb 14.3 Hct 44.4 MCV 92.8 MCH 30.0 MCHC 32.3 RDW 14.3 Plt Count 250 Neut % (Auto) 83.0 H Lymph % (Auto) 10.2 L [place] % (Auto) 6.5 Eos % (Auto) 0.0 L Baso % (Auto) 0.3 Neut # (Auto) 63266 H Lymph # (Auto) 1700 [place] # (Auto) 1100 H Eos # (Auto) 0 Baso # (Auto) 0 Sodium 144 Potassium 4.8 Chloride 106 Carbon Dioxide 27 BUN 81 H Creatinine 1.97 H Estimated GFR 34.1 L BUN/Creatinine Ratio 41.1 H Glucose 250 H D Calcium 8.9 Magnesium 2.9 H Total Bilirubin 0.7 AST 52 ALT 34 Alkaline Phosphatase 71 C-Reactive Protein Total Protein 6.8 Albumin 3.6 Globulin 3.2 Albumin/Globulin Ratio 1.1 Urine Color Yellow Urine Appearance Clear Urine pH 5.0 Ur Specific [place] 1.020 Urine Protein 1+ H Urine Glucose (UA) 1+ H Urine Ketones Negative Urine Occult Blood 3+ H Urine Nitrate Negative Urine Bilirubin Negative Urine Urobilinogen 0.2 Ur Leukocyte Esterase Negative Urine RBC 5-10/hpf H Urine WBC 0-1/hpf Ur Squamous Epith Cells 0-1 /hpf Amorphous Sediment 1+ Urine Bacteria None seen Ur Culture Indicated? Cult not indicated 03/09/21 04:37 WBC RBC Hgb Hct MCV MCH MCHC RDW Plt Count Neut % (Auto) Lymph % (Auto) [place] % (Auto) Eos % (Auto) Baso % (Auto) Neut # (Auto) Lymph # (Auto) [place] # (Auto) Eos # (Auto) Baso # (Auto) Sodium Potassium Chloride Carbon Dioxide BUN Creatinine Estimated GFR BUN/Creatinine Ratio Glucose Calcium Magnesium Total Bilirubin AST ALT Alkaline Phosphatase C-Reactive Protein 6.9 H Total Protein Albumin Globulin Albumin/Globulin Ratio Urine Color Urine Appearance Urine pH Ur Specific [place] Urine Protein Urine Glucose (UA) Urine Ketones Urine Occult Blood Urine Nitrate Urine Bilirubin Urine Urobilinogen Ur Leukocyte Esterase Urine RBC Urine WBC Ur Squamous Epith Cells Amorphous Sediment Urine Bacteria Ur Culture Indicated? [facility] Medical History Diabetes History of diabetes mellitus Hypertension Family History (Updated 03/06/21 @ 17:44 by Hannah Li MD) Father Cancer Mother Multiple sclerosis Social History marital status: household members: spouse lives independently: Yes Smoking Status: Never smoker Assessment & Plan Assessment & Plan narrative: 65-year-old male with a history of hypertension type 2 diabetes admitted to the hospital with acute respiratory failure secondary to COVID pneumonia 1. Acute respiratory failure with hypoxia, present on admission, secondary to COVID 19 pneumonia. -will continue decadron, baricitinib (renally dosed). Discontinued remdesevir for renal disease and bradycardia. Continue to wean O2 as tolerated, still on heated high flow. -on lovenox for RUE DVT. -continue proning -rising WBC today, no fever. UA negative. Procalcitonin borderline at 0.55. CXR without obvious changes. UA negative. Consider adding antibiotics depending on trend. Sputum culture ordered. 2. Acute, possibly on Chronic Renal Failure -Creatinine elevated at 2.75, unsure of baseline, improved with diuresis to 1.97 now. 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 Hypertension -blood pressure well controlled -hold losartan and felodipine 4. Type 2 Diabetes -hold metformin and glipizide -basal bolus insulin, hyperglycemic still. Increase further to 35 U BID of long acting. 5. Line associated DVT of the RUE. - patient with RUE DVT associated with line placement. - remove RUE line, replace with L sided midline. - started on anticoagulation with Lovenox. DVT prophylaxis: therapeutic dose lovenox Patient is a full code. His is his surrogate decision maker. If the patient required intubation he would want this. IF tracheostomy was required he would want this as well I have utilized all available resources to review update, and confirm his current medications 30 mins critical care time spent with this patient Time Spent With Patient Critical Care time: I spent a total of [] minutes of critical care time on this patient's care today; this time is exclusive of procedural time.
[2021-03-09 11:56] LABS: Ferritin 1170 ng/mL (18-464)
[2021-03-09] MEDS: FUROSEMIDE 40 MG/4 ML VIAL IV (12:01)
--- NOTE | 2021-03-09 14:00 | PC.NURSE ---
Pt remains on 55L and 90% HHFNC. While sitting upright in bed, sats are variable 80-89%. With minimal activity, Sats decrease to high 70s with prolonged recovery (greater than 10 minutes) to mid 80s%. Pt has been proning as well as side lying and using the incentive spirometer. While prone or side lying, sats increase to 94-95%. Pt is motivated to participate in plan of care and do whatever he needs to do to get home. He is asking appropriate questions about his care. Using call light appropriately.
[2021-03-09] MEDS: INSULIN GLARGINE 100 UNIT/ML 3ML PEN 38 UNIT SUBCUT (20:40)
--- NOTE | 2021-03-09 20:57 | PM.ICURNDS ---
- Date Patient Seen: 03/09/21 Time Patient Seen: 20:55 :: This patient was seen via real time interactive two-way audiovisual telecommunication. Note: Patient is requiring 55 L/min 90% FiO2 via HFNC and continues to have desaturation episodes. Recovery is delayed but when he calm, RR is in 20s. He is self-proning. Glycemic control remains suboptimal but insulin glargine BID was increased to 35 units SUBQ BID. I will increase this to 38 units SUBQ BID. The remainder of the current management will continue.
[2021-03-10] VITALS (43 sets, daily range): BP systolic 100–122; BP diastolic 53–63; PULSE 39–73; RESP 0–31; TEMP 31.1–36.3; O2SAT 88–97
[2021-03-10] MEDS: dexmedeTOMIDine in 0.9 % NaCL 400 MCG/100 ML PLAST..BAG 5.315 MCG IV
[2021-03-10 05:07] LABS: Add Manual Diff / Slide Review NO; Basophils Absolute Auto 100 /uL (0-100); Basophils Percent Auto 0.5 % (0-2); Eosinophils Absolute Auto 0 /uL (0-450); Eosinophils Percent Auto 0.2 % (2-4); Hematocrit 45.7 % (41-53); Hemoglobin 14.8 g/dL (13.5-17.5); Lymphocytes Absolute Auto 2000 /uL (1100-4500); Lymphocytes Percent Auto 12.3 % (25-40); Mean Corpuscular HGB Conc 32.3 % (30-36); Mean Corpuscular Volume 92.8 fL (80-100); Monocytes Absolute Auto 800 /uL (0-900); Monocytes Percent Auto 4.8 % (3-14); Neutrophils Absolute Auto 13000 /uL (1500-7000); Neutrophils Percent Auto 82.2 % (50-75); Platelet Count 258 X10^3/uL (150-400); Red Blood Cell Count 4.93 X10^6/uL (4.5-5.9); Red Cell Distribution Width 13.9 % (11.6-14.8); White Blood Cell Count 15.9 X10^3/uL (4.5-11.0)
[2021-03-10 05:13] LABS: Alanine Aminotransferase 46 IU/L (<50); Albumin 3.6 g/dL (3.5-5.0); Albumin Globulin Ratio 1.1 (1.0-2.8); Alkaline Phosphatase 72 U/L (38-126); Aspartate Aminotransferase 64 IU/L (17-59); BUN Creatinine Ratio 37.9 (6-22); Bilirubin Total 0.7 mg/dL (0.2-1.3); Blood Urea Nitrogen 72 mg/dL (9-20); Calcium 8.9 mg/dL (8.4-10.2); Carbon Dioxide 29 mmol/L (22-32); Chloride 106 mmol/L (98-107); Estimated Glomerular Filt Rate 35.5 mL/min (>60); Globulin 3.3 g/dL (1.7-4.1); Glucose 146 mg/dL (80-110); HEMOLYSIS < 15 (0-50); Magnesium 2.5 mg/dL (1.6-2.3); Potassium 4.2 mmol/L (3.4-5.1); Sodium 146 mmol/L (137-145); Total Protein 6.9 g/dL (6.3-8.2)
[2021-03-10] MEDS: DEXAMETHASONE 10 MG/ML VIAL 6 MG IV (08:19)
[2021-03-10] MEDS: DOCUSATE 100 MG CAPSULE PO (08:19)
[2021-03-10] MEDS: ENOXAPARIN 60 MG/0.6 ML SYRINGE 110 MG SUBCUT ×2 (08:19→20:33)
[2021-03-10] MEDS: BARICITINIB 2 MG TABLET PO (08:19)
--- NOTE | 2021-03-10 09:59 | PM.PN.EICU ---
Subjective Subjective Date Patient Seen: 03/10/21 :: This patient was seen via real time interactive two-way audiovisual telecommunication. Current Medications Current Medications Medications: Home Medications felodipine 2.5 mg tablet,extended release 24 hr 2.5 mg PO DAILY 03/06/21 [History Confirmed 03/06/21] losartan 100 mg tablet 100 mg DAILY 03/06/21 [History Confirmed 03/06/21] metformin 500 mg tablet,extended release 24 hr 500 mg PO DAILY 03/06/21 [History Confirmed 03/06/21] Visit Medications (administered) Generic Name Dose Route Start Last Admin Trade Name Freq PRN Reason Stop Dose Admin Acetaminophen 650 mg 03/06/21 17:30 03/09/21 00:44 Acetaminophen 325 Mg Tablet PO 650 mg Q6HR PRN Administration Fever Dexamethasone 6 mg 03/07/21 09:00 03/10/21 08:19 Dexamethasone 10 Mg/Ml Vial IV 6 mg DAILY CARRILLO Administration Docusate Sodium 100 mg 03/06/21 21:00 03/10/21 08:19 Docusate 100 Mg Capsule PO 100 mg BID CARRILLO Administration Enoxaparin Sodium 110 mg 03/09/21 09:00 03/10/21 08:19 Enoxaparin 60 Mg/0.6 Ml Syringe SUBCUT 110 mg BID CARRILLO Administration Furosemide 40 mg 03/07/21 00:00 03/10/21 00:00 Furosemide 40 Mg/4 Ml Vial IV 40 mg Q12HR CARRILLO Administration Heparin Sodium (Porcine) 50 unit 03/08/21 09:00 03/10/21 08:19 Heparin Flush (Cl/Picc/Mid-Line) 50 Unit/5 Ml Syringe IV 50 unit BID CARRILLO Administration Heparin Sodium (Porcine) 50 unit 03/07/21 22:43 03/08/21 12:32 Heparin Flush (Cl/Picc/Mid-Line) 50 Unit/5 Ml Syringe IV 50 unit PRN PRN Administration Flush dexmedeTOMIDine in 0.9 % NaCL 400 mcg in 100 mls @ 5.315 mls/hr 03/09/21 23:45 03/10/21 02:18 Precedex IV 0.1 mcg/kg/hr TITRATE CARRILLO 2.658 mls/hr Titration Protocol 0.2 MCG/KG/HR Insulin Glargine 38 unit 03/09/21 21:00 03/09/21 20:40 Insulin Glargine 100 Unit/Ml 3ml Pen SUBCUT 38 unit BEDTIME CARRILLO Administration Insulin Human Lispro 0 unit 03/06/21 21:00 03/10/21 08:20 Insulin Lispro 100 Unit/Ml 3ml Vial SUBCUT Not Given ACHS [facility] Protocol Sodium Chloride 10 ml 03/07/21 22:44 03/08/21 20:40 Sodium Chloride 0.9% Flush IV 10 ml PRN PRN Administration Flush Objective Ventilator Parameters: Oxygen requirement slightly increased from yesterday of HFNC 55L 90% with 100% NRBM. Pt. currently requiring HFNC 55L 92% with 100% NRBM with pox in the mid 90s but when patient exerts himself he desats and takes some time recover his pox back to 90's with rest. FiO2 83 Labs Result Diagrams: 03/10/21 04:44 03/10/21 04:44 Labs: Laboratory Results - last 24 hr 03/09/21 03/10/21 03/10/21 04:37 04:44 04:44 WBC 15.9 H RBC 4.93 Hgb 14.8 Hct 45.7 MCV 92.8 MCH 30.0 MCHC 32.3 RDW 13.9 Plt Count 258 Neut % (Auto) 82.2 H Lymph % (Auto) 12.3 L [place] % (Auto) 4.8 Eos % (Auto) 0.2 L Baso % (Auto) 0.5 Neut # (Auto) 44496 H Lymph # (Auto) 2000 [place] # (Auto) 800 Eos # (Auto) 0 Baso # (Auto) 100 Sodium 146 H Potassium 4.2 Chloride 106 Carbon Dioxide 29 BUN 72 H Creatinine 1.90 H Estimated GFR 35.5 L BUN/Creatinine Ratio 37.9 H Glucose 146 H D Calcium 8.9 Magnesium 2.5 H Ferritin 1170 H Total Bilirubin 0.7 AST 64 H ALT 46 Alkaline Phosphatase 72 C-Reactive Protein 6.9 H Total Protein 6.9 Albumin 3.6 Globulin 3.3 Albumin/Globulin Ratio 1.1 Exam Vital Signs (past 8 hours): - 03/10/21 02:00 03/10/21 02:15 03/10/21 02:30 Temperature Pulse Rate 44 L 40 L 40 L Respiratory Rate 24 2 L 0 L Blood Pressure Pulse Oximetry 93 94 94 03/10/21 02:45 03/10/21 03:00 03/10/21 03:15 Temperature Pulse Rate 42 L 41 L 43 L Respiratory Rate 3 L 15 21 Blood Pressure Pulse Oximetry 93 94 93 03/10/21 03:30 03/10/21 03:45 03/10/21 04:00 Temperature 97.0 F L Pulse Rate 40 L 40 L 40 L Respiratory Rate 21 22 21 Blood Pressure 100/54 L Pulse Oximetry 93 93 92 03/10/21 04:07 03/10/21 04:15 03/10/21 04:30 Temperature Pulse Rate 40 L 41 L 41 L Respiratory Rate 22 23 22 Blood Pressure Pulse Oximetry 93 92 93 03/10/21 04:34 03/10/21 04:45 03/10/21 05:00 Temperature Pulse Rate 44 L 41 L 43 L Respiratory Rate 12 0 L 18 Blood Pressure 100/54 L Pulse Oximetry 94 89 L 88 L 03/10/21 05:15 03/10/21 05:30 03/10/21 05:45 Temperature Pulse Rate 45 L 40 L 41 L Respiratory Rate 23 27 H 24 Blood Pressure Pulse Oximetry 90 L 93 90 L 03/10/21 06:00 03/10/21 06:15 03/10/21 06:30 Temperature Pulse Rate 43 L 45 L 45 L Respiratory Rate 24 11 L 24 Blood Pressure Pulse Oximetry 90 L 90 L 95 03/10/21 06:45 03/10/21 07:00 03/10/21 07:15 Temperature Pulse Rate 45 L 46 L 73 Respiratory Rate 26 H 25 H 31 H Blood Pressure Pulse Oximetry 96 96 95 03/10/21 07:32 Temperature 97.3 F L Pulse Rate 49 L Respiratory Rate 25 H Blood Pressure 107/56 L Pulse Oximetry 92 Fraction of Inspired Oxygen 92 Oxygen Delivery Method High Flow Nasal Cannula,Heated High Flow,Non - Rebreather Oxygen Flow Rate 55 Assessment & Plan Assessment & Plan narrative: Assessment & Plan narrative: a/ 65 yo man acute hypoxemic resp failure due to covid 19 RUE line associated DVT acute on chronic renal failure-improving even with diuresis DM HTN RAÚL Plan acute respiratory failure secondary to COVID PNA-continue HFNC and 100% NRBM and titrate for pox of 90-98% - if respiratory status worsens consider CPAP of 8 as needed for labored breathing or worsening hypoxemia -continue dexamethasone and baricitnib (remdesivir held because of JALEEL) -check CXR -continue with awake self proning RAÚL - CPAP at night for patient's RAÚL RUE DVT- PICC was removed lovenox 110 mg BID SQ Acute on chronic renal failure- Pt. on lasix 40 mg IV BID, Cr so far continues to trend downg, consider reducing lasix dose if Cr starts trending up DM -titrate insulin as needed for euglycemia high risk for intubation time spent 50 min Time Spent With Patient Critical Care time: I spent a total of [] minutes of critical care time on this patient's care today; this time is exclusive of procedural time.
--- NOTE | 2021-03-10 10:11 | PC.NURSE ---
Addendum entered by Angelo Cole R.N. 03/10/21 14:46: 1340- RT placed pt on HHFNC 60 L 90% FIO2 so that pt can eat. With eating, sats ranged from 67-82%. This RN sat with pt while eating to provided supplemental O2 flushes as well as NRB between bites to maintain sats. Pt was able to eat half an apple, a few bites of cottage cheese and drank PO fluids. Placed pt back on CPAP pressure 10 FIO2 75%. Pt quickly increased sats to 95%. Addendum entered by Angelo Cole R.N. 03/10/21 12:07: RT placed CPAP about 1140. Pt is now resting comfortably in bed with eyes closed. Currently supine with RR 23 and SPO2 99% on CPAP 10 FIO2 75%. Addendum entered by Angelo Cole R.N. 03/10/21 11:35: Pt moving minimally to have blood sugar checked by WIRE BOUND BOX MACHINE OPERATOR and noted to have sats 76% on 55L and 92% HHFNC with 15L NRB additionally. Pt is tachypneic RR 32 and reporting feeling increased shortness of breath. Pt states he felt the most comfortable on his CPAP with full face mask at home and is willing to try CPAP here. Notified RT of automatic mold sander rec's and pt's home use of CPAP and willingness to try . Addendum entered by Angelo Cole R.N. 03/10/21 10:30: Discussed BGs and insulin/lantus dosing with Dr. Rowan on rounds. Pt's 0800 BG 100. Pt is not eating breakfast at this time. Dr. Rowan states he will look at dosing and make orders. Awaiting orders. Original Note: 0800- Noted some episodes of apnea on central monitor and SPO2 trending down from 94% to 88%. Pt reports shortness of breath exacerbated by minimal exertion. Pt changed positions from right side lying to supine and SPO2 trended down to low 80s% prior to this RN entering room. Pt is on HHFNC 55L and 92% as well as NRB 15L. Elevated HOB and assisted pt to sitting up right. Instructed on deep breathing techniques to slow RR, and allow optimal lung expansion/oxygenation. Paused precedex infusion for now. Pt is able to perform deep breathing and increase sats to 85% but is unable to continue breathing pattern and quickly drops sats to as low as 76%. Provided several 100% O2 flushes via HHFNC as well as assessed proper application of O2 to nares and tubing connections on HHFNC and pulse ox to finger. Pt reports some lightheadedness and face is reddened. Pt is using accessory muscles to breath and RR remains mid 30s. Assisted pt to prone position and provided 100% O2 flush via HHFNC. Pt was able to recover sats to 92% by 0900. Breakfast tray held at this time due to respiratory status, O2 needs. Reported to Dr. Rowan on rounds. Discussed with automatic mold sander on rounds who recommends using cpap HS and PRN.
--- NOTE | 2021-03-10 10:30 | DI.RAD.S_ITS ---
PROCEDURE: XR CHEST 1V INDICATIONS: worsening hypoxemia TECHNIQUE: One view of the chest was acquired. COMPARISON: [facility], CR, XR CHEST 1V, 03/08/2021, 9:55. FINDINGS: Multiple overlying tubes and wires. Surgical changes and devices: None. Lungs and pleura: There is hypoinflation. This cause a prominence of the bronchovascular markings. No definite focal consolidation.. No pleural effusions or pneumothorax. Mediastinum: Mediastinal contours appear normal. Heart size is normal. Bones and chest wall: No suspicious bony lesions. Degenerative changes of the shoulders and spine. Postsurgical changes of the distal left clavicle. Overlying soft tissues appear unremarkable. IMPRESSION: Low lung volumes. No other findings to suggest an acute cardiopulmonary abnormality. Dictated by: Rodrick Neumann D.O. on 03/10/2021 at 10:16 Approved by: Rodrick Neumann D.O. on 03/10/2021 at 10:21
[2021-03-10] MEDS: FUROSEMIDE 40 MG/4 ML VIAL IV ×3 (11:25→23:53)
--- NOTE | 2021-03-10 16:04 | P.PN_ITS ---
Subjective Subjective Date Patient Seen: 03/10/21 Time Patient Seen: 16:04 Interval history: Patient denies chest pain, reports improved shortness of breath but still on high amounts of oxygen. Denies abdominal pain, nausea, vomiting, diarrhea. Hypoxic still with minimal exertion. Exam Vital Signs (past 8 hours): - 03/10/21 10:37 03/10/21 10:39 03/10/21 11:32 Temperature 97.0 F L Pulse Rate 60 50 L 57 L Respiratory Rate 20 24 28 H Blood Pressure 107/56 L 115/63 Pulse Oximetry 88 L 95 94 03/10/21 11:35 03/10/21 14:10 Temperature Pulse Rate 58 L Respiratory Rate 18 Blood Pressure 115/63 115/63 Pulse Oximetry 93 Fraction of Inspired Oxygen 75 Oxygen Delivery Method Heated High Flow,Non -Rebreather Oxygen Flow Rate 55 Narrative Exam Narrative: ?GENERAL APPEARANCE: Well developed, well nourished, but ill appearing and fatigued, no acute distress. SKIN: Inspection of the skin reveals no rashes, ulcerations or petechiae. HEENT:? Normocephalic atraumatic, extraocular muscles are intact, oropharynx is clear and mucous membranes are moist, neck is supple without adenopathy LUNGS: decreased breath sound bilateral lung bases, no obvious wheezing, rhochi, or rales. CARDIOVASCULAR: RRR. peripheral pulses +2. ABDOMEN: S NT ND MUSCULOSKELETAL: There was no tenderness or effusions noted. Muscle strength and tone were normal. EXTREMITIES: No cyanosis, clubbing or edema. NEUROLOGIC: Alert and oriented x 3. Normal affect. Strength is +5/5 in the Upper Extremities and Lower Extremities Bilaterally. Objective Labs Result Diagrams: 03/10/21 04:44 03/10/21 04:44 Labs: Laboratory Results - last 24 hr 03/10/21 03/10/21 04:44 04:44 WBC 15.9 H RBC 4.93 Hgb 14.8 Hct 45.7 MCV 92.8 MCH 30.0 MCHC 32.3 RDW 13.9 Plt Count 258 Neut % (Auto) 82.2 H Lymph % (Auto) 12.3 L [place] % (Auto) 4.8 Eos % (Auto) 0.2 L Baso % (Auto) 0.5 Neut # (Auto) 28588 H Lymph # (Auto) 2000 [place] # (Auto) 800 Eos # (Auto) 0 Baso # (Auto) 100 Sodium 146 H Potassium 4.2 Chloride 106 Carbon Dioxide 29 BUN 72 H Creatinine 1.90 H Estimated GFR 35.5 L BUN/Creatinine Ratio 37.9 H Glucose 146 H D Calcium 8.9 Magnesium 2.5 H Total Bilirubin 0.7 AST 64 H ALT 46 Alkaline Phosphatase 72 Total Protein 6.9 Albumin 3.6 Globulin 3.3 Albumin/Globulin Ratio 1.1 [facility] Medical History Diabetes History of diabetes mellitus Hypertension Family History (Updated 03/06/21 @ 17:44 by Hannah Li MD) Father Cancer Mother Multiple sclerosis Social History marital status: household members: spouse lives independently: Yes Smoking Status: Never smoker Assessment & Plan Assessment & Plan narrative: 65-year-old male with a history of hypertension type 2 diabetes admitted to the hospital with acute respiratory failure secondary to COVID pneumonia 1. Acute respiratory failure with hypoxia, present on admission, secondary to COVID 19 pneumonia. -will continue decadron, baricitinib (renally dosed). Discontinued remdesevir for renal disease and bradycardia. Continue to wean O2 as tolerated, still on heated high flow. -on lovenox for RUE DVT. -continue proning -rising WBC, no fever. UA negative. Procalcitonin borderline at 0.55. CXR without obvious changes. UA negative. Consider adding antibiotics depending on trend. Sputum culture ordered. 2. Acute, possibly on Chronic Renal Failure -Creatinine elevated at 2.75, unsure of baseline, improved with diuresis to 1.97 now. -Lactic Acid 1.6 -Losartan on hold -Lasix per Aboriginal Education Worker Coordinator 3. Hypertension -blood pressure well controlled -hold losartan and felodipine 4. Type 2 Diabetes -hold metformin and glipizide -basal bolus insulin, hyperglycemic still. Increase further to 35 U BID of long acting. 5. Line associated DVT of the RUE. ?- patient with RUE DVT associated with line placement. ?- remove RUE line, replace with L sided midline. ?- started on anticoagulation with Lovenox. 6. RAÚL - provided CPAP therapy when at rest. DVT prophylaxis: therapeutic dose lovenox Patient is a full code. His is his surrogate decision maker. If the patient required intubation he would want this. IF tracheostomy was required he would want this as well I have utilized all available resources to review update, and confirm his current medications I spent 30 minutes providing critical care management this patient. This excludes time spent in performing separately billed procedures. Time Spent With Patient Critical Care time: I spent a total of [] minutes of critical care time on this patient's care today; this time is exclusive of procedural time.
[2021-03-10] MEDS: INSULIN LISPRO 100 UNIT/ML 3ML VIAL SUBCUT ×2 (17:39→20:36)
--- NOTE | 2021-03-10 18:30 | PC.NURSE ---
Pt has been dyspnec, RR in the low 30s since the beginning of this shift. Has been placed on cpap settings +10 65% FiO2, sats 97, 98% on these settings. removed cpap for dinner and pt required HHFNC + NRB to finish eating with sats dipping to the 70's. Placed back on cpap immediately after dinner.
[2021-03-10] MEDS: INSULIN GLARGINE 100 UNIT/ML 3ML PEN 38 UNIT SUBCUT (20:32)
[2021-03-10] MEDS: SODIUM CHLORIDE 0.9% FLUSH 10 ML IV ×2 (20:33→23:53)
--- NOTE | 2021-03-10 23:23 | PM.ICURNDS ---
- Date Patient Seen: 03/10/21 Time Patient Seen: 23:20 :: This patient was seen via real time interactive two-way audiovisual telecommunication. Note: RN reports that glycemic control is better. Unfortunately, the frequency and intensity of his desaturation episodes are increasing; in addition, his recoveries are taking longer. In between these episodes, his O2 saturation is in low 90s and RR remains in mid 20s. However, baseline RR can be as high as 30. He was started on CPAP for presumptive RAÚL. In my opinion, he is slowly progressing towards an intubation; will continue to follow. I will order a ABG as the last one was on 03/06; I would like to see what his P/F ratio is.
[2021-03-11] VITALS (24 sets, daily range): BP systolic 99–125; BP diastolic 53–72; PULSE 45–59; RESP 9–36; TEMP 30.9–36.6; O2SAT 88–98
--- NOTE | 2021-03-11 04:34 | PC.NURSE ---
Manager Programming Note-Patient had been sleeping on his right side, C-pap in place, Precedex gtt at 0.1mcg/kg/hr, he was oriented x3 when assessed at midnight, at 0330 he woke up disoriented sitting at side of bed with mask off, SpO2 57%, once mask place back on he quickly became oriented and sats recovered up to 90% within 5 minutes. VSS, denies pain or anxiety, diuresed > 1000ml urine in Mi after midnight dose of 40mg IV Lasix given.
[2021-03-11] MEDS: DEXAMETHASONE 10 MG/ML VIAL 6 MG IV (08:22)
[2021-03-11] MEDS: BARICITINIB 2 MG TABLET PO (08:22)
[2021-03-11] MEDS: ENOXAPARIN 60 MG/0.6 ML SYRINGE 110 MG SUBCUT ×2 (08:39→20:34)
--- NOTE | 2021-03-11 09:34 | PM.PN.EICU ---
Subjective Subjective :: This patient was seen via real time interactive two-way audiovisual telecommunication. Had an episode of confusion overnight which he was placed on CPAP and started on precedex. Came off precedex this morning. Remains tachypnea with RR 30s. Alternating between HFNC 60/80% and CPAP 8 FiO2 80%. Pending morning labs. Current Medications Current Medications Medications: Home Medications felodipine 2.5 mg tablet,extended release 24 hr 2.5 mg PO DAILY 03/06/21 [History Confirmed 03/06/21] losartan 100 mg tablet 100 mg DAILY 03/06/21 [History Confirmed 03/06/21] metformin 500 mg tablet,extended release 24 hr 500 mg PO DAILY 03/06/21 [History Confirmed 03/06/21] Visit Medications (administered) Generic Name Dose Route Start Last Admin Trade Name Freq PRN Reason Stop Dose Admin Acetaminophen 650 mg 03/06/21 17:30 03/09/21 00:44 Acetaminophen 325 Mg Tablet PO 650 mg Q6HR PRN Administration Fever Dexamethasone 6 mg 03/07/21 09:00 03/11/21 08:22 Dexamethasone 10 Mg/Ml Vial IV 6 mg DAILY CARRILLO Administration Docusate Sodium 100 mg 03/06/21 21:00 03/11/21 08:22 Docusate 100 Mg Capsule PO Not Given BID CARRILLO Enoxaparin Sodium 110 mg 03/09/21 09:00 03/11/21 08:39 Enoxaparin 60 Mg/0.6 Ml Syringe SUBCUT 110 mg BID CARRILLO Administration Furosemide 40 mg 03/07/21 00:00 03/10/21 23:53 Furosemide 40 Mg/4 Ml Vial IV 40 mg Q12HR CARRILLO Administration Heparin Sodium (Porcine) 50 unit 03/08/21 09:00 03/11/21 08:22 Heparin Flush (Cl/Picc/Mid-Line) 50 Unit/5 Ml Syringe IV 50 unit BID CARRILLO Administration Heparin Sodium (Porcine) 50 unit 03/07/21 22:43 03/10/21 23:53 Heparin Flush (Cl/Picc/Mid-Line) 50 Unit/5 Ml Syringe IV 50 unit PRN PRN Administration Flush dexmedeTOMIDine in 0.9 % NaCL 400 mcg in 100 mls @ 5.315 mls/hr 03/09/21 23:45 03/10/21 20:13 Precedex IV 0.1 mcg/kg/hr TITRATE CARRILLO 2.658 mls/hr Titration Protocol 0.2 MCG/KG/HR Insulin Glargine 38 unit 03/09/21 21:00 03/10/21 20:32 Insulin Glargine 100 Unit/Ml 3ml Pen SUBCUT 38 unit BEDTIME CARRILLO Administration Insulin Glargine 38 unit 03/10/21 09:00 03/10/21 13:18 Insulin Glargine 100 Unit/Ml 3ml Pen SUBCUT Not Given DAILY CARRILLO Insulin Human Lispro 0 unit 03/06/21 21:00 03/11/21 08:23 Insulin Lispro 100 Unit/Ml 3ml Vial SUBCUT Not Given ACHS [facility] Protocol Melatonin 6 mg 03/10/21 21:00 03/10/21 20:41 Melatonin 3 Mg Tablet PO Not Given BEDTIME CARRILLO Sodium Chloride 10 ml 03/07/21 22:44 03/10/21 23:53 Sodium Chloride 0.9% Flush IV 10 ml PRN PRN Administration Flush Objective Ventilator Parameters: Ventilator Settings FiO2 83 Labs Result Diagrams: 03/10/21 04:44 03/10/21 04:44 Exam Vital Signs (past 8 hours): - 03/11/21 02:00 03/11/21 02:19 03/11/21 04:00 Temperature Pulse Rate 53 L 55 L Respiratory Rate 32 H 31 H Blood Pressure 118/57 L 118/57 L 112/53 L Pulse Oximetry 92 93 03/11/21 07:00 03/11/21 08:00 Temperature 97.3 F L Pulse Rate 58 L Respiratory Rate 28 H Blood Pressure 112/53 L 123/72 Pulse Oximetry 98 Fraction of Inspired Oxygen 80 Oxygen Delivery Method CPAP Oxygen Flow Rate 10 Assessment & Plan Assessment & Plan narrative: NEURO: # Acute encephalopathy -- Secondary to delirium and severe hypoxemia -- Off precedex infusion -- RASS goal 0 -- EArly mobility -- Cont frequent reorientation RESP: # Acute hypoxemia respiratory failure -- Secondary to COVID pneumonia? -- Worsen over the last 5 days and now requiring HFNC alternating with CPAP -- Recommend close monitoring for the need for intubation if hypoxemia worsen -- RT to titrate FiO2 to maintain goal SpO2 > 88% -- Cont diuresis -- Recommend HAP coverage -- Encourage self proning as tolerated -- Goal SpO2 > 88% ID: # Pneumonia due to COVID-19 -- Risk factors -> DM, HTN, obesity, and age -- On decadron, baricitinib -- On therapeutic lovenox for RUE DVT -- Avoid NSAIDs -- Encourage self prone as tolerated (ie, 2 hours supine and 2 hours prone)? -- Cont gentle diuresis -- On strict contact, droplet/airborne, eye protection, and critical meticulous hand hygiene : # Acute renal failure -- Cr improving slowly -- Secondary to COVID -19 -- Cont lasix 40 mg IV BID to seek net negative fluid balance -- Avoid nephrotoxin agents? -- Daily BMP GI: # Poor PO intake -- Secondary to COVID -- Encourage PO intake -- May consider NGT if oral intake remains poor after 7 days HEME: # RUE DVT -- On therapeutic lovenox -- Monitor renal function closely -- If Cr worsen then recommend switching over to heparin infusion ENDO: # DM -- BS ~150s -- Switch lantus to nightly -- Goal BS 120-180 Case d/w pharmacist, RN, and RT. Time Spent With Patient Critical Care time: I spent a total of [] minutes of critical care time on this patient's care today; this time is exclusive of procedural time.
--- NOTE | 2021-03-11 09:47 | PC.NURSE ---
Addendum entered by Angelo Cole R.N. 03/11/21 14:52: Pt proned from [id number] on HHFNC. Assisted pt to dangle at bedside at 1100. Pt reports feeling much improved. SPO2 94% on 60L and 90%. Pt requested to stand up and transfer to chair. After standing and transferring, pt had SPO2 96% and RR 23. Decreased FIO2 to 80%. Pt is sitting up to chair in good spirits. PO intake is improved slightly from yesterday. RT is weaning O2 as able. Original Note: 929- Multi disciplinary rounds. Discussed pt's O2 needs, current HHFNC settings, poor activity tolerance, VS, blood sugars, poor PO intake. Reported pt c/o difficulty breathing through left nare (pt states this is a baseline problem but worse now). Requested clarification of orders for lantus given low BGs and decreased PO intake during day. Requested clarification of orders for ABG (ordered for 0700, pt just placed back on HHFNC from CPAP). Orders received to dc AM lantus dose, dc ABG, monitor PO intake.
[2021-03-11] MEDS: FLUTICASONE 120 SPRAY/16 GM SPRAY.SUSP NASAL ×2 (10:42→20:33)
[2021-03-11 11:43] LABS: Alanine Aminotransferase 62 IU/L (<50); Albumin 3.7 g/dL (3.5-5.0); Albumin Globulin Ratio 1.1 (1.0-2.8); Alkaline Phosphatase 72 U/L (38-126); Aspartate Aminotransferase 78 IU/L (17-59); BUN Creatinine Ratio 40.7 (6-22); Bilirubin Total 1.4 mg/dL (0.2-1.3); Blood Urea Nitrogen 74 mg/dL (9-20); Carbon Dioxide 29 mmol/L (22-32); Chloride 104 mmol/L (98-107); Estimated Glomerular Filt Rate 37.3 mL/min (>60); Globulin 3.5 g/dL (1.7-4.1); Glucose 154 mg/dL (80-110); HEMOLYSIS 17 (0-50); Potassium 4.3 mmol/L (3.4-5.1); Sodium 141 mmol/L (137-145); Total Protein 7.2 g/dL (6.3-8.2)
[2021-03-11 11:52] LABS: Hemoglobin 15.2 g/dL (13.5-17.5); Mean Corpuscular HGB Conc 33.1 % (30-36); Mean Corpuscular Hemoglobin 30.6 PG (26-34); Mean Corpuscular Volume 92.4 fL (80-100); Platelet Count 268 X10^3/uL (150-400); Red Blood Cell Count 4.98 X10^6/uL (4.5-5.9); Red Cell Distribution Width 13.8 % (11.6-14.8); White Blood Cell Count 18.1 X10^3/uL (4.5-11.0)
[2021-03-11 12:07] LABS: Add Manual Diff / Slide Review YES
[2021-03-11] MEDS: FUROSEMIDE 40 MG/4 ML VIAL IV (12:07)
[2021-03-11] MEDS: INSULIN LISPRO 100 UNIT/ML 3ML VIAL SUBCUT ×3 (12:07→20:43)
--- NOTE | 2021-03-11 12:19 | PM.PN.1 ---
Subjective Subjective Date Patient Seen: 03/11/21 Time Patient Seen: 12:19 Interval history: Patient denies chest pain, reports improved shortness of breath but still on high amounts of oxygen. Denies abdominal pain, nausea, vomiting, diarrhea. Hypoxic still with minimal exertion. overnight with some confusion, improved this AM. Down to 60L at 70%, mid 90s O2 sitting in bedside chair today. Exam Vital Signs (past 8 hours): - 03/11/21 07:00 03/11/21 08:00 03/11/21 09:30 Temperature 97.3 F L Pulse Rate 58 L Respiratory Rate 28 H Blood Pressure 112/53 L 123/72 Pulse Oximetry 98 92 Fraction of Inspired Oxygen 80 Oxygen Delivery Method CPAP Oxygen Flow Rate 10 Narrative Exam Narrative: GENERAL APPEARANCE: Well developed, well nourished, but ill appearing and fatigued, no acute distress. SKIN: Inspection of the skin reveals no rashes, ulcerations or petechiae. HEENT:? Normocephalic atraumatic, extraocular muscles are intact, oropharynx is clear and mucous membranes are moist, neck is supple without adenopathy LUNGS: decreased breath sound bilateral lung bases, no obvious wheezing, rhochi, or rales. CARDIOVASCULAR: RRR. peripheral pulses +2. ABDOMEN: S NT ND MUSCULOSKELETAL: There was no tenderness or effusions noted. Muscle strength and tone were normal. EXTREMITIES: No cyanosis, clubbing or edema. NEUROLOGIC: Alert and oriented x 3. Normal affect. Strength is +5/5 in the Upper Extremities and Lower Extremities Bilaterally. Objective Labs Result Diagrams: 03/11/21 11:20 03/11/21 11:20 Labs: Laboratory Results - last 24 hr 03/11/21 03/11/21 11:20 11:20 WBC 18.1 H RBC 4.98 Hgb 15.2 Hct 46.0 MCV 92.4 MCH 30.6 MCHC 33.1 RDW 13.8 Plt Count 268 Neut % (Auto) Not Reportable Lymph % (Auto) Not Reportable [place] % (Auto) Not Reportable Eos % (Auto) Not Reportable Baso % (Auto) Not Reportable Lymph # (Auto) Not Reportable [place] # (Auto) Not Reportable Baso # (Auto) Not Reportable Sodium 141 Potassium 4.3 Chloride 104 Carbon Dioxide 29 BUN 74 H Creatinine 1.82 H Estimated GFR 37.3 L BUN/Creatinine Ratio 40.7 H Glucose 154 H Calcium 9.0 Total Bilirubin 1.4 H AST 78 H ALT 62 H Alkaline Phosphatase 72 Total Protein 7.2 Albumin 3.7 Globulin 3.5 Albumin/Globulin Ratio 1.1 [facility] Medical History Diabetes History of diabetes mellitus Hypertension Family History (Updated 03/06/21 @ 17:44 by Hannah Li MD) Father Cancer Mother Multiple sclerosis Social History marital status: household members: spouse lives independently: Yes Smoking Status: Never smoker Assessment & Plan Assessment & Plan narrative: 65-year-old male with a history of hypertension type 2 diabetes admitted to the hospital with acute respiratory failure secondary to COVID pneumonia 1. Acute respiratory failure with hypoxia, present on admission, secondary to COVID 19 pneumonia. -will continue decadron, baricitinib (renally dosed). Discontinued remdesevir for renal disease and bradycardia. Continue to wean O2 as tolerated, still on heated high flow. -on lovenox for RUE DVT. -continue proning -rising WBC, no fever. UA negative. Procalcitonin borderline at 0.55. CXR without obvious changes. UA negative. Added antibiotics today as WBC close to 19. Vocal Teacher recommended cefepime and linezolid. 2. Acute, possibly on Chronic Renal Failure -Creatinine elevated at 2.75, unsure of baseline, continues to slowly improve since admission. -Lactic Acid 1.6 -Losartan on hold -Lasix per Vocal Teacher 3. Hypertension -blood pressure well controlled -hold losartan and felodipine. On lasix as noted above. 4. Type 2 Diabetes -hold metformin and glipizide -basal bolus insulin, decreased to 35 U at night given poor PO intake due to hypoxia. -audio visual production specialist consulted today, appreciate recommendations. 5. Line associated DVT of the RUE. ?- patient with RUE DVT associated with line placement. ?- removef RUE line, replacef with L sided midline. ?- started on anticoagulation with Lovenox. 6. RAÚL ?- provided CPAP therapy when at rest. 7. Metabolic encephalopathy, improved - waxing and waning, secondary to ICU delirium and hypoxia. Continue above therapies for hypoxia. DVT prophylaxis: therapeutic dose lovenox Patient is a full code. His is his surrogate decision maker. If the patient required intubation he would want this. IF tracheostomy was required he would want this as well I have utilized all available resources to review update, and confirm his current medications I spent 34 minutes providing critical care management this patient.? This excludes time spent in performing separately billed procedures. Time Spent With Patient Critical Care time: I spent a total of [] minutes of critical care time on this patient's care today; this time is exclusive of procedural time.
[2021-03-11 12:44] LABS: Neutrophils Absolute Manual 14299 /uL (3000-5900); Smudge Cells 1+; Total Cells Counted 100
[2021-03-11] MEDS: LINEZOLID 600 MG/300 ML IV.SOLN IV ×2 (13:09→20:34)
[2021-03-11] MEDS: CEFEPIME 2 GM in SODIUM CHLORIDE 0.9% 100 ML 200 ML IV ×2 (13:09→20:32)
--- NOTE | 2021-03-11 17:02 | DIET.PN1 ---
Dietary Progress Note RD Note: RD alerted by nursing that pts POs have been poor through the weekend. RD called into patient room. Pt audibly having work of breathing during conversation with sats in low 80s. Pt having taste changes secondary to covid+ status. Meat, fish, and eggs all taste unbearably mineral-like for pt so he cannot consume them though he understands the importance of protein and adequate calories to fight his infection. Pt dislikes ONS Ensure Max. Pt tolerating blueberry protein smoothies and yogurt with fruit the best at this time. Pt trying to drink fluids as well. Pt poor candidate for NGT nutrition support as one nare is essentially unusable, so placing NGT would only allow him to adequately ventilate from the mouth. Ht: 180.34 cm Wt: 106.1 kg BMI: 34.1 Last BM: 03/08/21 (03/08/21 18:14) MNA: Jose Angel Score: 18 Diet: 03/06/21 Dinner Carbohydrate Consistent Diet Diet Modifications: easy to eat foods, blueberry protein smoothie tid Carbohydrate level: Large (4 CHO) Bedtime snack: No Nutrition Percent Meal Consumed smoothie and pudding 03/11/21 14:25 Percent Meal Consumed 50% 03/11/21 10:15 Percent Meal Consumed 75% 03/10/21 18:23 Percent Meal Consumed few bites of cottage cheese, half 03/10/21 14:45 an apple Percent Meal Consumed had cottage cheese and an apple 03/10/21 14:23 from home Percent Meal Consumed 10 03/09/21 17:55 Labs: RBC 4.98 X10^6/uL (4.5-5.9) 03/11/21 11:20 Hgb 15.2 g/dL (13.5-17.5) 03/11/21 11:20 Hct 46.0 % (41-53) 03/11/21 11:20 Creatinine 1.82 mg/dL (0.66-1.25) H 03/11/21 11:20 Lactate 1.6 mmol/L (0.7-2.1) 03/06/21 10:00 Ferritin 1170 ng/mL (18-464) H 03/09/21 04:37 NT-Pro-B Natriuret Pep 300 pg/mL (<125) H 03/06/21 10:00 Interventions: 1. Kitchen to send fresh made high PRO smoothies to pt tid along with low carb yogurt to try to get POs higher. EER: 1,900kcals (18kcal/kg per obese), 106g PRO (1g/kg) Monitoring/Evaluations: POs Electronically Signed by: Christine Gomez 03/11/21 17:02 Clinical Dietitian [address] [address]
[2021-03-11] MEDS: MELATONIN 3 MG TABLET 6 MG PO (20:32)
[2021-03-11] MEDS: DOCUSATE 100 MG CAPSULE PO (20:33)
[2021-03-11] MEDS: INSULIN GLARGINE 100 UNIT/ML 3ML PEN 38 UNIT SUBCUT (20:43)
--- NOTE | 2021-03-11 20:48 | PM.ICURNDS ---
- Date Patient Seen: 03/11/21 Time Patient Seen: 20:48 :: This patient was seen via real time interactive two-way audiovisual telecommunication. Note: patient seen and examined chart/labs/imaging reviewed rest comfortable COVID pna doing well on cpap with intermittent high flow continue current care please call with any questions
[2021-03-12] VITALS (27 sets, daily range): BP systolic 97–127; BP diastolic 50–72; PULSE 44–74; RESP 0–24; TEMP 1–36.8; O2SAT 78–98
[2021-03-12] MEDS: FUROSEMIDE 40 MG/4 ML VIAL IV ×3 (00:05→23:25)
[2021-03-12 05:06] LABS: Alanine Aminotransferase 53 IU/L (<50); Albumin 3.5 g/dL (3.5-5.0); Albumin Globulin Ratio 1.1 (1.0-2.8); Alkaline Phosphatase 63 U/L (38-126); Aspartate Aminotransferase 43 IU/L (17-59); BUN Creatinine Ratio 40.4 (6-22); Bilirubin Total 0.9 mg/dL (0.2-1.3); Blood Urea Nitrogen 76 mg/dL (9-20); Calcium 8.8 mg/dL (8.4-10.2); Carbon Dioxide 29 mmol/L (22-32); Chloride 101 mmol/L (98-107); Globulin 3.3 g/dL (1.7-4.1); Glucose 249 mg/dL (80-110); HEMOLYSIS 18 (0-50); Magnesium 2.5 mg/dL (1.6-2.3); Potassium 4.1 mmol/L (3.4-5.1); Sodium 138 mmol/L (137-145); Total Protein 6.8 g/dL (6.3-8.2)
[2021-03-12 05:07] LABS: Hematocrit 43.1 % (41-53); Mean Corpuscular HGB Conc 32.4 % (30-36); Mean Corpuscular Hemoglobin 30.3 PG (26-34); Mean Corpuscular Volume 93.4 fL (80-100); Platelet Count 265 X10^3/uL (150-400); Red Blood Cell Count 4.62 X10^6/uL (4.5-5.9); Red Cell Distribution Width 13.6 % (11.6-14.8); White Blood Cell Count 17.2 X10^3/uL (4.5-11.0)
[2021-03-12 05:08] LABS: Add Manual Diff / Slide Review YES
[2021-03-12 05:37] LABS: Neutrophils Absolute Manual 13416 /uL (3000-5900); Total Cells Counted 100
[2021-03-12 05:38] LABS: RBC Morphology Normal Morphology
[2021-03-12] MEDS: BARICITINIB 2 MG TABLET PO (08:36)
[2021-03-12] MEDS: FLUTICASONE 120 SPRAY/16 GM SPRAY.SUSP NASAL ×2 (08:36→21:14)
[2021-03-12] MEDS: DOCUSATE 100 MG CAPSULE PO ×2 (08:37→21:12)
[2021-03-12] MEDS: DEXAMETHASONE 10 MG/ML VIAL 6 MG IV (08:37)
[2021-03-12] MEDS: INSULIN LISPRO 100 UNIT/ML 3ML VIAL SUBCUT ×4 (08:38→21:17)
[2021-03-12] MEDS: CEFEPIME 2 GM in SODIUM CHLORIDE 0.9% 100 ML 200 ML IV ×2 (08:42→21:12)
[2021-03-12] MEDS: ENOXAPARIN 60 MG/0.6 ML SYRINGE 110 MG SUBCUT ×2 (08:51→21:13)
[2021-03-12 08:53] LABS: Procalcitonin 0.61 ng/mL (<0.5)
--- NOTE | 2021-03-12 09:40 | P.TELICUPN_ITS ---
Subjective Subjective :: This patient was seen via real time interactive two-way audiovisual telecommunication. No acute issues. On HFNC 60/90%. Decrease PO intake. Sitting up in chair and eating breakfast. Current Medications Current Medications Medications: Home Medications felodipine 2.5 mg tablet,extended release 24 hr 2.5 mg PO DAILY 03/06/21 [History Confirmed 03/06/21] losartan 100 mg tablet 100 mg DAILY 03/06/21 [History Confirmed 03/06/21] metformin 500 mg tablet,extended release 24 hr 500 mg PO DAILY 03/06/21 [History Confirmed 03/06/21] Visit Medications (administered) Generic Name Dose Route Start Last Admin Trade Name Freq PRN Reason Stop Dose Admin Acetaminophen 650 mg 03/06/21 17:30 03/09/21 00:44 Acetaminophen 325 Mg Tablet PO 650 mg Q6HR PRN Administration Fever Dexamethasone 6 mg 03/07/21 09:00 03/12/21 08:37 Dexamethasone 10 Mg/Ml Vial IV 6 mg DAILY CARRILLO Administration Docusate Sodium 100 mg 03/06/21 21:00 03/12/21 08:37 Docusate 100 Mg Capsule PO 100 mg BID CARRILLO Administration Enoxaparin Sodium 110 mg 03/09/21 09:00 03/12/21 08:51 Enoxaparin 60 Mg/0.6 Ml Syringe SUBCUT 110 mg BID CARRILLO Administration Fluticasone Propionate 1 spray 03/11/21 09:45 03/12/21 08:36 Fluticasone 120 [place]/16 Gm [place].Susp NASAL 1 spray BID CARRILLO Administration Furosemide 40 mg 03/07/21 00:00 03/12/21 00:05 Furosemide 40 Mg/4 Ml Vial IV 40 mg Q12HR CARRILLO Administration Heparin Sodium (Porcine) 50 unit 03/08/21 09:00 03/12/21 08:35 Heparin Flush (Cl/Picc/Mid-Line) 50 Unit/5 Ml Syringe IV 50 unit BID CARRILLO Administration Heparin Sodium (Porcine) 50 unit 03/07/21 22:43 03/10/21 23:53 Heparin Flush (Cl/Picc/Mid-Line) 50 Unit/5 Ml Syringe IV 50 unit PRN PRN Administration Flush dexmedeTOMIDine in 0.9 % NaCL 400 mcg in 100 mls @ 5.315 mls/hr 03/09/21 23:45 03/12/21 06:05 Precedex IV Infused TITRATE CARRILLO Titration Protocol 0.2 MCG/KG/HR Cefepime HCl 2 gm/ Sodium 100 mls @ 200 mls/hr 03/11/21 12:30 03/12/21 08:42 Chloride IV 200 mls/hr BID CARRILLO Administration Linezolid 600 mg in 300 mls @ 600 mls/hr 03/11/21 12:30 03/11/21 22:16 Zyvox IV Infused BID CARRILLO Infusion Insulin Glargine 38 unit 03/09/21 21:00 03/11/21 20:43 Insulin Glargine 100 Unit/Ml 3ml Pen SUBCUT 38 unit BEDTIME CARRILLO Administration Insulin Human Lispro 0 unit 03/06/21 21:00 03/12/21 08:38 Insulin Lispro 100 Unit/Ml 3ml Vial SUBCUT 1 unit ACHS CARRILLO Administration Protocol Melatonin 6 mg 03/10/21 21:00 03/11/21 20:32 Melatonin 3 Mg Tablet PO 6 mg BEDTIME CARRILLO Administration Sodium Chloride 10 ml 03/07/21 22:44 03/10/21 23:53 Sodium Chloride 0.9% Flush IV 10 ml PRN PRN Administration Flush Objective Ventilator Parameters: Ventilator Settings FiO2 83 Labs Result Diagrams: 03/12/21 04:36 03/12/21 04:36 Labs: Laboratory Results - last 24 hr 03/11/21 03/11/21 03/12/21 11:20 11:20 04:36 WBC 18.1 H 17.2 H RBC 4.98 4.62 Hgb 15.2 14.0 Hct 46.0 43.1 MCV 92.4 93.4 MCH 30.6 30.3 MCHC 33.1 32.4 RDW 13.8 13.6 Plt Count 268 265 Neut % (Auto) Not Reportable Not Reportable Lymph % (Auto) Not Reportable Not Reportable [place] % (Auto) Not Reportable Not Reportable Eos % (Auto) Not Reportable Not Reportable Baso % (Auto) Not Reportable Not Reportable Lymph # (Auto) Not Reportable Not Reportable [place] # (Auto) Not Reportable Not Reportable Baso # (Auto) Not Reportable Not Reportable Total Counted 100 100 Seg Neutrophils % 79.0 H 69.0 Band Neutrophils % 9.0 H Lymphocytes % (Manual) 10.0 L 17.0 L Atypical Lymphs % 3.0 H Monocytes % (Manual) 8.0 3.0 Metamyelocytes % 2.0 H Neutrophils # (Manual) 33618 H 52465 H Smudge Cells 1+ H RBC Morphology See below Normal morphology Sodium 141 Potassium 4.3 Chloride 104 Carbon Dioxide 29 BUN 74 H Creatinine 1.82 H Estimated GFR 37.3 L BUN/Creatinine Ratio 40.7 H Glucose 154 H Calcium 9.0 Magnesium Total Bilirubin 1.4 H AST 78 H ALT 62 H Alkaline Phosphatase 72 Total Protein 7.2 Albumin 3.7 Globulin 3.5 Albumin/Globulin Ratio 1.1 Procalcitonin 03/12/21 03/12/21 04:36 08:23 WBC RBC Hgb Hct MCV MCH MCHC RDW Plt Count Neut % (Auto) Lymph % (Auto) [place] % (Auto) Eos % (Auto) Baso % (Auto) Lymph # (Auto) [place] # (Auto) Baso # (Auto) Total Counted Seg Neutrophils % Band Neutrophils % Lymphocytes % (Manual) Atypical Lymphs % Monocytes % (Manual) Metamyelocytes % Neutrophils # (Manual) Smudge Cells RBC Morphology Sodium 138 Potassium 4.1 Chloride 101 Carbon Dioxide 29 BUN 76 H Creatinine 1.88 H Estimated GFR 36.0 L BUN/Creatinine Ratio 40.4 H Glucose 249 H Calcium 8.8 Magnesium 2.5 H Total Bilirubin 0.9 AST 43 ALT 53 H Alkaline Phosphatase 63 Total Protein 6.8 Albumin 3.5 Globulin 3.3 Albumin/Globulin Ratio 1.1 Procalcitonin 0.61 H Exam Vital Signs (past 8 hours): - 03/12/21 02:00 03/12/21 02:01 03/12/21 03:00 Temperature 96.3 F L Pulse Rate 45 L 49 L 48 L Respiratory Rate 21 24 22 Blood Pressure 120/63 Pulse Oximetry 96 96 96 03/12/21 03:01 03/12/21 03:28 03/12/21 04:00 Temperature Pulse Rate 48 L 45 L Respiratory Rate 10 L 20 Blood Pressure 127/72 127/72 Pulse Oximetry 95 96 03/12/21 04:01 03/12/21 05:00 03/12/21 06:00 Temperature Pulse Rate 45 L 46 L 50 L Respiratory Rate 21 21 0 L Blood Pressure 109/61 116/65 112/57 L Pulse Oximetry 96 96 78 L 03/12/21 06:20 03/12/21 08:20 03/12/21 08:30 Temperature 98.3 F Pulse Rate 46 L 55 L 58 L Respiratory Rate 23 20 20 Blood Pressure 112/67 118/68 Pulse Oximetry 94 92 92 Fraction of Inspired Oxygen 90 Oxygen Delivery Method CPAP Oxygen Flow Rate 60 Assessment & Plan Assessment & Plan narrative: # Acute hypoxemia respiratory failure -- Secondary to COVID PNA w/ possible superimposed PNA -- On linezolid/cefepime -- On HFNC 60/90% alternating with CPAP nightly -- Monitor closely for need for intubation -- Encourage proning as tolerated -- Cont diuresis -- Goal SpO2 > 88% # COVID PNA -- On decadron and baricitinib -- Cont rx as above # JALEEL -- Cr improving slowly -- Cont diuresis -- Avoid nephrotoxin agents -- Daily BMP # Concern for PNA -- On linezolid/cefepime -- Pending resp cx -- Deescalate abx if cx remains negative X 48 hours # RUE DVT -- On therapeutic lovenox Time Spent With Patient Critical Care time: I spent a total of [] minutes of critical care time on this patient's care today; this time is exclusive of procedural time.
[2021-03-12] MEDS: LINEZOLID 600 MG/300 ML IV.SOLN IV ×2 (09:56→21:29)
--- NOTE | 2021-03-12 13:04 | PM.PN.1 ---
Subjective Subjective Date Patient Seen: 03/12/21 Time Patient Seen: 08:00 Interval history: This morning he thinks his shortness of breath is improved. He has no chest pain. Minimal coughing. He is trying to prone. He is still on significant oxygen with HHFNC at 60L 90%. Exam Vital Signs (past 8 hours): - 03/12/21 06:00 03/12/21 06:20 03/12/21 08:20 Temperature 98.3 F Pulse Rate 50 L 46 L 55 L Respiratory Rate 0 L 23 20 Blood Pressure 112/57 L 112/67 118/68 Pulse Oximetry 78 L 94 92 03/12/21 08:30 03/12/21 11:25 Temperature Pulse Rate 58 L 51 L Respiratory Rate 20 20 Blood Pressure 111/60 Pulse Oximetry 92 96 Fraction of Inspired Oxygen 80 Oxygen Delivery Method Heated High Flow Oxygen Flow Rate 60 Narrative Exam Narrative: GEN: no acute distress PULM: decreased breath sounds bilaterally CARDIOVASCULAR: regular rate and rhythm with no murmurs ABDOMEN:soft nontender nondistended, no organomegaly, normval bowel sounds Objective Labs Result Diagrams: 03/12/21 04:36 03/12/21 04:36 Labs: Laboratory Results - last 24 hr 03/12/21 03/12/21 03/12/21 04:36 04:36 08:23 WBC 17.2 H RBC 4.62 Hgb 14.0 Hct 43.1 MCV 93.4 MCH 30.3 MCHC 32.4 RDW 13.6 Plt Count 265 Neut % (Auto) Not Reportable Lymph % (Auto) Not Reportable [place] % (Auto) Not Reportable Eos % (Auto) Not Reportable Baso % (Auto) Not Reportable Lymph # (Auto) Not Reportable [place] # (Auto) Not Reportable Baso # (Auto) Not Reportable Total Counted 100 Seg Neutrophils % 69.0 Band Neutrophils % 9.0 H Lymphocytes % (Manual) 17.0 L Monocytes % (Manual) 3.0 Metamyelocytes % 2.0 H Neutrophils # (Manual) 51636 H RBC Morphology Normal morphology Sodium 138 Potassium 4.1 Chloride 101 Carbon Dioxide 29 BUN 76 H Creatinine 1.88 H Estimated GFR 36.0 L BUN/Creatinine Ratio 40.4 H Glucose 249 H Calcium 8.8 Magnesium 2.5 H Total Bilirubin 0.9 AST 43 ALT 53 H Alkaline Phosphatase 63 Total Protein 6.8 Albumin 3.5 Globulin 3.3 Albumin/Globulin Ratio 1.1 Procalcitonin 0.61 H Nasal Screen MRSA (PCR) 03/12/21 10:15 WBC RBC Hgb Hct MCV MCH MCHC RDW Plt Count Neut % (Auto) Lymph % (Auto) [place] % (Auto) Eos % (Auto) Baso % (Auto) Lymph # (Auto) [place] # (Auto) Baso # (Auto) Total Counted Seg Neutrophils % Band Neutrophils % Lymphocytes % (Manual) Monocytes % (Manual) Metamyelocytes % Neutrophils # (Manual) RBC Morphology Sodium Potassium Chloride Carbon Dioxide BUN Creatinine Estimated GFR BUN/Creatinine Ratio Glucose Calcium Magnesium Total Bilirubin AST ALT Alkaline Phosphatase Total Protein Albumin Globulin Albumin/Globulin Ratio Procalcitonin Nasal Screen MRSA (PCR) Negative for mrsa [facility] Medical History Diabetes History of diabetes mellitus Hypertension Family History (Updated 03/06/21 @ 17:44 by Hannah Li MD) Father Cancer Mother Multiple sclerosis Social History marital status: household members: spouse lives independently: Yes Smoking Status: Never smoker Assessment & Plan Assessment & Plan narrative: Mr. Avendano is a 65M with PMH DM, HTN, obesity admitted to the hospital with respiratory failure secondary to COVID pneumonia 1. Acute respiratory failure with hypoxia, present on admission, secondary to COVID 19 pneumonia. -will continue decadron, baricitinib (renally dosed). Discontinued remdesevir for renal disease and bradycardia. Continue to wean O2 as tolerated, still on heated high flow. -on lovenox for RUE DVT. -continue proning -rising WBC, no fever. UA negative. Procalcitonin borderline at 0.55. CXR without obvious changes. UA negative. Added antibiotics today as WBC close to 19. Plow And Boring Machine Tender recommended cefepime and linezolid. Continue to monitor, attempt sputum culture 2. Acute, possibly on Chronic Renal Failure -Creatinine elevated at 2.75, unsure of baseline, continues to slowly improve since admission now to 1.88 -Lactic Acid 1.6 -Losartan on hold -Lasix per Plow And Boring Machine Tender 3. Hypertension -blood pressure well controlled -hold losartan and felodipine. On lasix as noted above. 4. Type 2 Diabetes -hold metformin and glipizide -basal bolus insulin, decreased to 35 U at night given poor PO intake due to hypoxia. -entry level business analyst consulted today, appreciate recommendations. 5. Line associated DVT of the RUE. ?- patient with RUE DVT associated with line placement. ?- removef RUE line, replacef with L sided midline. ?- started on anticoagulation with Lovenox. 6. RAÚL ?- provided CPAP therapy when at rest. 7. Metabolic encephalopathy, improved ?- waxing and waning, secondary to ICU delirium and hypoxia. Continue above therapies for hypoxia. DVT prophylaxis: therapeutic dose lovenox Patient is a full code. His is his surrogate decision maker. If the patient required intubation he would want this. IF tracheostomy was required he would want this as well I have utilized all available resources to review update, and confirm his current medications Time Spent With Patient Critical Care time: I spent a total of [] minutes of critical care time on this patient's care today; this time is exclusive of procedural time.
--- NOTE | 2021-03-12 20:50 | PM.ICURNDS ---
- Note: Case d/w bedside nursing and resp staff. Pt w hypoxic resp failure secondary to COVID-19 infection. He remains on HFNC and has had stable but abnormal O2 requirements. I would add a PT eval as pt will be in the hospital for some time and can benefit from PT to avoid sig deconditioning.
[2021-03-12] MEDS: MELATONIN 3 MG TABLET 6 MG PO (21:12)
[2021-03-12] MEDS: INSULIN GLARGINE 100 UNIT/ML 3ML PEN 38 UNIT SUBCUT (21:29)
[2021-03-12] MEDS: ACETAMINOPHEN 325 MG TABLET 650 MG PO (23:25)
[2021-03-12] MEDS: SODIUM CHLORIDE 0.9% FLUSH 10 ML IV (23:26)
[2021-03-13] VITALS (42 sets, daily range): BP systolic 103–133; BP diastolic 51–68; PULSE 44–80; RESP 21–30; TEMP 31–37; O2SAT 82–100
--- NOTE | 2021-03-13 00:43 | PC.NURSE ---
Addendum entered by Natalia Groves R.N. 03/13/21 07:23: Sitting at side of bed with only HHF on, SpO2 >88% after he blew a large bloody clot from his nares, denies shortness of breath. Addendum entered by Natalia Groves R.N. 03/13/21 05:26: Patient is now back on HHF 60L/90% plus 15L NRB, wanting to sit up in bed for awhile, SpO2 >90%, denies dyspnea. Original Note: Tool Straightener [id number] assess patient, he was on HHF 60L/90%, proning, SpO2 low 90s, he stated Im not getting enough air, RT in room to assist with repositioning and troubleshooting, but ultimately patient ended up on C-pap 14/80% for the night, SpO2 increased to 94-98%, patient says shortness of breath is a little better RR 20s-30, lung sounds dim with underlying coarseness, intermittent dry cough. SB 40s, BP 103/51. Scheduled IV Lasix given, Tylenol for generalized discomfort, melatonin was given at HS. Currently lying on Lt side.
[2021-03-13 05:23] LABS: Hematocrit 42.4 % (41-53); Mean Corpuscular HGB Conc 32.9 % (30-36); Mean Corpuscular Hemoglobin 30.1 PG (26-34); Mean Corpuscular Volume 91.4 fL (80-100); Platelet Count 374 X10^3/uL (150-400); Red Blood Cell Count 4.64 X10^6/uL (4.5-5.9); Red Cell Distribution Width 13.7 % (11.6-14.8); White Blood Cell Count 23.9 X10^3/uL (4.5-11.0)
[2021-03-13 05:29] LABS: Alanine Aminotransferase 43 IU/L (<50); Albumin 3.5 g/dL (3.5-5.0); Albumin Globulin Ratio 1.1 (1.0-2.8); Alkaline Phosphatase 66 U/L (38-126); Aspartate Aminotransferase 39 IU/L (17-59); BUN Creatinine Ratio 46.1 (6-22); Bilirubin Total 0.7 mg/dL (0.2-1.3); Blood Urea Nitrogen 82 mg/dL (9-20); Calcium 8.9 mg/dL (8.4-10.2); Carbon Dioxide 28 mmol/L (22-32); Chloride 102 mmol/L (98-107); Estimated Glomerular Filt Rate 38.3 mL/min (>60); Globulin 3.3 g/dL (1.7-4.1); Glucose 150 mg/dL (80-110); HEMOLYSIS < 15 (0-50); Magnesium 2.3 mg/dL (1.6-2.3); Potassium 3.8 mmol/L (3.4-5.1); Sodium 140 mmol/L (137-145); Total Protein 6.8 g/dL (6.3-8.2)
[2021-03-13 05:43] LABS: Add Manual Diff / Slide Review YES
[2021-03-13 05:44] LABS: Procalcitonin 0.57 ng/mL (<0.5)
[2021-03-13 06:01] LABS: Neutrophils Absolute Manual 20793 /uL (3000-5900); Total Cells Counted 100
[2021-03-13 06:02] LABS: RBC Morphology Normal Morphology
--- NOTE | 2021-03-13 08:22 | PT-IP ANOTE ---
Talked to RN who said O2 needs went overnight, so hold PT this AM. Plan is for PT to check back this PM.
[2021-03-13] MEDS: CEFEPIME 2 GM in SODIUM CHLORIDE 0.9% 100 ML 200 ML IV (09:41)
[2021-03-13] MEDS: BARICITINIB 2 MG TABLET PO (09:41)
[2021-03-13] MEDS: ENOXAPARIN 60 MG/0.6 ML SYRINGE 110 MG SUBCUT ×2 (09:42→20:59)
[2021-03-13] MEDS: DOCUSATE 100 MG CAPSULE PO ×2 (09:43→20:58)
[2021-03-13] MEDS: DEXAMETHASONE 10 MG/ML VIAL 6 MG IV (09:43)
[2021-03-13] MEDS: SODIUM CHLORIDE NASAL SPRAY 1 SPRAY NASAL (09:44)
[2021-03-13] MEDS: FLUTICASONE 120 SPRAY/16 GM SPRAY.SUSP NASAL ×2 (09:44→20:58)
[2021-03-13] MEDS: LINEZOLID 600 MG/300 ML IV.SOLN IV (09:45)
--- NOTE | 2021-03-13 09:57 | PM.PN.EICU ---
Subjective Subjective :: This patient was seen via real time interactive two-way audiovisual telecommunication. Current Medications Current Medications Medications: Home Medications felodipine 2.5 mg tablet,extended release 24 hr 2.5 mg PO DAILY 03/06/21 [History Confirmed 03/06/21] losartan 100 mg tablet 100 mg DAILY 03/06/21 [History Confirmed 03/06/21] metformin 500 mg tablet,extended release 24 hr 500 mg PO DAILY 03/06/21 [History Confirmed 03/06/21] Visit Medications (administered) Generic Name Dose Route Start Last Admin Trade Name Freq PRN Reason Stop Dose Admin Acetaminophen 650 mg 03/06/21 17:30 03/12/21 23:25 Acetaminophen 325 Mg Tablet PO 650 mg Q6HR PRN Administration Fever Dexamethasone 6 mg 03/07/21 09:00 03/13/21 09:43 Dexamethasone 10 Mg/Ml Vial IV 6 mg DAILY CARRILLO Administration Docusate Sodium 100 mg 03/06/21 21:00 03/13/21 09:43 Docusate 100 Mg Capsule PO 100 mg BID CARRILLO Administration Enoxaparin Sodium 110 mg 03/09/21 09:00 03/13/21 09:42 Enoxaparin 60 Mg/0.6 Ml Syringe SUBCUT 110 mg BID CARRILLO Administration Fluticasone Propionate 1 spray 03/11/21 09:45 03/13/21 09:44 Fluticasone 120 [place]/16 Gm [place].Susp NASAL 1 spray BID CARRILLO Administration Furosemide 40 mg 03/07/21 00:00 03/12/21 23:25 Furosemide 40 Mg/4 Ml Vial IV 40 mg Q12HR CARRILLO Administration Heparin Sodium (Porcine) 50 unit 03/08/21 09:00 03/12/21 21:13 Heparin Flush (Cl/Picc/Mid-Line) 50 Unit/5 Ml Syringe IV 50 unit BID CARRILLO Administration Heparin Sodium (Porcine) 50 unit 03/07/21 22:43 03/12/21 23:26 Heparin Flush (Cl/Picc/Mid-Line) 50 Unit/5 Ml Syringe IV 50 unit PRN PRN Administration Flush dexmedeTOMIDine in 0.9 % NaCL 400 mcg in 100 mls @ 5.315 mls/hr 03/09/21 23:45 03/12/21 06:05 Precedex IV Infused TITRATE CARRILLO Titration Protocol 0.2 MCG/KG/HR Cefepime HCl 2 gm/ Sodium 100 mls @ 200 mls/hr 03/11/21 12:30 03/13/21 09:41 Chloride IV 200 mls/hr BID CARRILLO Administration Linezolid 600 mg in 300 mls @ 600 mls/hr 03/11/21 12:30 03/13/21 09:45 Zyvox IV 600 mls/hr BID CARRILLO Administration Insulin Glargine 38 unit 03/09/21 21:00 03/12/21 21:29 Insulin Glargine 100 Unit/Ml 3ml Pen SUBCUT 38 unit BEDTIME CARRILLO Administration Insulin Human Lispro 0 unit 03/06/21 21:00 03/12/21 21:17 Insulin Lispro 100 Unit/Ml 3ml Vial SUBCUT 7 unit ACHS CARRILLO Administration Protocol Melatonin 6 mg 03/10/21 21:00 03/12/21 21:12 Melatonin 3 Mg Tablet PO 6 mg BEDTIME CARRILLO Administration Sodium Chloride 10 ml 03/07/21 22:44 03/12/21 23:26 Sodium Chloride 0.9% Flush IV 10 ml PRN PRN Administration Flush Sodium Chloride 1 spray 03/13/21 08:47 03/13/21 09:44 Sodium Chloride Nasal [place] NASAL 1 spray PRN PRN Administration Congestion Objective Ventilator Parameters: Ventilator Settings FiO2 83 Labs Result Diagrams: 03/13/21 05:00 03/13/21 05:00 Labs: Laboratory Results - last 24 hr 03/12/21 03/13/21 03/13/21 10:15 05:00 05:00 WBC 23.9 H RBC 4.64 Hgb 14.0 Hct 42.4 MCV 91.4 MCH 30.1 MCHC 32.9 RDW 13.7 Plt Count 374 Neut % (Auto) Not Reportable Lymph % (Auto) Not Reportable [place] % (Auto) Not Reportable Eos % (Auto) Not Reportable Baso % (Auto) Not Reportable Lymph # (Auto) Not Reportable [place] # (Auto) Not Reportable Baso # (Auto) Not Reportable Total Counted 100 Seg Neutrophils % 84.0 H Band Neutrophils % 3.0 Lymphocytes % (Manual) 9.0 L Monocytes % (Manual) 4.0 Neutrophils # (Manual) 63522 H RBC Morphology Normal morphology Sodium Potassium Chloride Carbon Dioxide BUN Creatinine Estimated GFR BUN/Creatinine Ratio Glucose Calcium Magnesium Total Bilirubin AST ALT Alkaline Phosphatase Total Protein Albumin Globulin Albumin/Globulin Ratio Procalcitonin 0.57 H Nasal Screen MRSA (PCR) Negative for mrsa 03/13/21 05:00 WBC RBC Hgb Hct MCV MCH MCHC RDW Plt Count Neut % (Auto) Lymph % (Auto) [place] % (Auto) Eos % (Auto) Baso % (Auto) Lymph # (Auto) [place] # (Auto) Baso # (Auto) Total Counted Seg Neutrophils % Band Neutrophils % Lymphocytes % (Manual) Monocytes % (Manual) Neutrophils # (Manual) RBC Morphology Sodium 140 Potassium 3.8 Chloride 102 Carbon Dioxide 28 BUN 82 H Creatinine 1.78 H Estimated GFR 38.3 L BUN/Creatinine Ratio 46.1 H Glucose 150 H Calcium 8.9 Magnesium 2.3 Total Bilirubin 0.7 AST 39 ALT 43 Alkaline Phosphatase 66 Total Protein 6.8 Albumin 3.5 Globulin 3.3 Albumin/Globulin Ratio 1.1 Procalcitonin Nasal Screen MRSA (PCR) Exam Vital Signs (past 8 hours): - 03/13/21 03:49 03/13/21 04:00 03/13/21 05:44 Temperature 97.8 F Pulse Rate 63 54 L Respiratory Rate 24 23 Blood Pressure 103/51 L 114/60 114/60 Pulse Oximetry 92 91 03/13/21 08:03 Temperature 98.6 F Pulse Rate 75 Respiratory Rate 28 H Blood Pressure 118/67 Pulse Oximetry 83 L Fraction of Inspired Oxygen 85 Oxygen Delivery Method Heated High Flow,Non -Rebreather,CPAP Oxygen Flow Rate 65 Narrative Exam Narrative: pt comfortable but a bit anxious with some increased work of breathing Assessment & Plan Assessment & Plan narrative: 65 year old male with COVID pna, ards with worsening hypoxia now on max high flow settings suggest -start bipap intermittently with high flow, low lung volumes on cxr -incentive spirometer as tolerated -cont nebs/steroid/abx per primary team -keep glucose 140-180 -full dose Lovenox -gi ppx with diet -goals of care and severity of illness to be discussed with patient and family at length Time Spent With Patient Critical Care time: I spent a total of [] minutes of critical care time on this patient's care today; this time is exclusive of procedural time.
[2021-03-13] MEDS: ACETAMINOPHEN 325 MG TABLET 650 MG PO ×2 (10:01→18:13)
--- NOTE | 2021-03-13 10:57 | PC.NURSE ---
AM shift Pt is restless this AM, having trouble proning. Side to Side, needing assist to reposition. HHFNC in place 65L and 85% Fio2. Lungs dim and clear. Pt Restless. Assist to chair, which improved patients outlook significantly. Better spirits. APAP given for low back pain. Effective. Discussed POC with patient, who verbalizes desire to continue to participate in care, using I.s. and Side laying this shift. Willl prone after meal. NRB mask applied over HHFNC prior to transfer to bed. Pt felt this was effective and would like to continue preoxygenating prior to transfers.
--- NOTE | 2021-03-13 11:20 | PC.NURSE ---
1120am Update x2 to this AM.
--- NOTE | 2021-03-13 12:56 | P.PN_ITS ---
Subjective Subjective Date Patient Seen: 03/13/21 Time Patient Seen: 08:00 Interval history: Today he has no new complaints. His oxygen requirements have continued to increase. He denies worse shortness of breath. He has a slight cough. He appears less energetic than previously. Exam Vital Signs (past 8 hours): - 03/13/21 05:44 03/13/21 08:03 03/13/21 09:55 Temperature 98.6 F Pulse Rate 54 L 75 74 Respiratory Rate 23 28 H 24 Blood Pressure 114/60 118/67 118/67 Pulse Oximetry 91 83 L 90 L 03/13/21 12:48 Temperature Pulse Rate 54 L Respiratory Rate 24 Blood Pressure Pulse Oximetry 90 L Fraction of Inspired Oxygen 85 Oxygen Delivery Method Heated High Flow,Humidification Oxygen Flow Rate 65 Narrative Exam Narrative: EN: no acute distress PULM: decreased breath sounds bilaterally CARDIOVASCULAR: regular rate and rhythm with no murmurs ABDOMEN:soft nontender nondistended, no organomegaly, normval bowel sounds Objective Labs Result Diagrams: 03/13/21 05:00 03/13/21 05:00 Labs: Laboratory Results - last 24 hr 03/13/21 03/13/21 03/13/21 05:00 05:00 05:00 WBC 23.9 H RBC 4.64 Hgb 14.0 Hct 42.4 MCV 91.4 MCH 30.1 MCHC 32.9 RDW 13.7 Plt Count 374 Neut % (Auto) Not Reportable Lymph % (Auto) Not Reportable [place] % (Auto) Not Reportable Eos % (Auto) Not Reportable Baso % (Auto) Not Reportable Lymph # (Auto) Not Reportable [place] # (Auto) Not Reportable Baso # (Auto) Not Reportable Total Counted 100 Seg Neutrophils % 84.0 H Band Neutrophils % 3.0 Lymphocytes % (Manual) 9.0 L Monocytes % (Manual) 4.0 Neutrophils # (Manual) 60529 H RBC Morphology Normal morphology Sodium 140 Potassium 3.8 Chloride 102 Carbon Dioxide 28 BUN 82 H Creatinine 1.78 H Estimated GFR 38.3 L BUN/Creatinine Ratio 46.1 H Glucose 150 H Calcium 8.9 Magnesium 2.3 Total Bilirubin 0.7 AST 39 ALT 43 Alkaline Phosphatase 66 Total Protein 6.8 Albumin 3.5 Globulin 3.3 Albumin/Globulin Ratio 1.1 Procalcitonin 0.57 H [facility] Medical History Diabetes History of diabetes mellitus Hypertension Family History (Updated 03/06/21 @ 17:44 by Hannah Li MD) Father Cancer Mother Multiple sclerosis Social History marital status: household members: spouse lives independently: Yes Smoking Status: Never smoker Assessment & Plan Assessment & Plan narrative: Mr. Avendano is a 65M with PMH DM, HTN, obesity admitted to the hospital with respiratory failure secondary to COVID pneumonia 1. Acute respiratory failure with hypoxia, present on admission, secondary to COVID 19 pneumonia. -will continue decadron, baricitinib (renally dosed). Discontinued remdesevir for renal disease and bradycardia. Continue to wean O2 as tolerated, still on heated high flow. -on lovenox for RUE DVT. -continue proning -rising WBC, no fever. UA negative. Procalcitonin borderline at 0.55. CXR without obvious changes. UA negative. Added antibiotics today as WBC close to 19. [employer] Representative recommended cefepime and linezolid. Continue to monitor, attempt sputum culture 2. Acute, possibly on Chronic Renal Failure -Creatinine elevated at 2.75, unsure of baseline, continues to slowly improve since admission now to 1.88 -Lactic Acid 1.6 -Losartan on hold -Lasix per [employer] Representative 3. Hypertension -blood pressure well controlled -hold losartan and felodipine. On lasix as noted above. 4. Type 2 Diabetes -hold metformin and glipizide -basal bolus insulin, decreased to 35 U at night given poor PO intake due to hypoxia. -military science teacher consulted today, appreciate recommendations. 5. Line associated DVT of the RUE. ?- patient with RUE DVT associated with line placement. ?- removef RUE line, replacef with L sided midline. ?- started on anticoagulation with Lovenox. 6. RAÚL ?- provided CPAP therapy when at rest. 7. Metabolic encephalopathy, improved ?- waxing and waning, secondary to ICU delirium and hypoxia. Continue above therapies for hypoxia. DVT prophylaxis: therapeutic dose lovenox Patient is a full code. His is his surrogate decision maker. If the patient required intubation he would want this. IF tracheostomy was required he would want this as well I have utilized all available resources to review update, and confirm his current medications Time Spent With Patient Critical Care time: I spent a total of [] minutes of critical care time on this patient's care today; this time is exclusive of procedural time.
[2021-03-13] MEDS: INSULIN LISPRO 100 UNIT/ML 3ML VIAL SUBCUT ×3 (13:30→20:54)
[2021-03-13] MEDS: FUROSEMIDE 40 MG/4 ML VIAL IV (13:30)
--- NOTE | 2021-03-13 14:20 | PT.IIE ---
Current Diagnoses Acidosis (03/06/21) Acute respiratory failure with hypoxia (03/06/21) Medical History (Last Reviewed 03/06/21 @ 17:43 by Hannah Li MD) Diabetes History of diabetes mellitus Hypertension Physical Therapy Inpatient Evaluation/Re-Eval M1 PT/OT-IP Prior Functional Status Start: 03/13/21 15:23 Freq: NEEDED Status: Active Protocol: Document 03/13/21 14:20 AB (Rec: 03/13/21 15:36 AB [email or web address]) Medical Review Prior Functional Status Medical History Reviewed Yes Communication able to make needs known Mobility and Gait pt stated that he is independent with all mobilities and ambulation without AD Social History Household Members spouse Living Arrangements House Number of Floors (Floors) One Floor Number of Stairs To Enter/Railing? 1 step to enter the house 1 step down to the kitchen with B rails Home Environment Standard Height Toilet,Walk in Shower,Built-In Shower Seat Home Equipment Hand Held Shower M2 PT-IP Current Condition Start: 03/13/21 15:23 Freq: NEEDED Status: Active Protocol: Document 03/13/21 14:20 AB (Rec: 03/13/21 15:36 AB [email or web address]) Physical Therapy Current Condition Current Condition Evaluation Date 03/13/21 Treatment Diagnosis Covid PNA; difficulty in walking Onset Date 03/06/21 M3 PT-IP Subjective Start: 03/13/21 15:23 Freq: NEEDED Status: Active Protocol: Document 03/13/21 14:20 AB (Rec: 03/13/21 15:36 AB [email or web address]) Subjective Physical Therapy Visit Type Type Initial Evaluation Visit Start Time 14:20 Visit Stop Time 15:00 Total Visit Minutes 40 Number of LABOR EXPEDITER Visits 0 Physical Therapy Visit Comments Patient Comments agreed to do PT M4 PT-IP Mobility and Gait Start: 03/13/21 15:23 Freq: NEEDED Status: Active Protocol: Document 03/13/21 14:20 AB (Rec: 03/13/21 15:36 AB [email or web address]) PT-Bed Mobility Assessment Supine to Sit Supine to Sit Standby Assistance,Head of Bed Elevated,Bedrails Sit to Supine Sit to Supine Standby Assistance,Head of Bed Elevated,Bedrails PT-Transfer Assessment Sit to and From Stand Sit to and from Stand Minimal Assistance,1 Person Assistance,Use of Upper Extremities Equipment Transfer Assistive Device Gait Belt,Front Wheeled Walker Orthotic/Prosthetic Devices or Brace: No Comments Mobility Comments pt on heated high flow 60L/min and O2 sat 85-89%. pt completed supine to sit HOB elevated SBA. pt was able to sit on EOB SBA. O2 sat: 88-90 %. completed sit to stand min A and cues and took steps forward ~ 3 ft and backwards using FWW min A. O2 sat during standing and ambulation using FWW: 90-94%. pt sat on EOB. O2 sat decreased 76-78% . cued for deep breathing. took >1 min to recover back to 86%. pt requested to go back to bed. completed sit to supine SBA. positioned pt in bed. call light and table placed within reach. O2 sat at end of PT session: 89-90%. nurse informed. Gait Assessment Gait Gait Assistance Required: Minimum Assistance,1 Person Assist Distance (Feet) 6 Able to Maintain Weight Bearing Status No During Gait Assistive Devices Assistive Device Gait Belt,Front Wheeled Walker Orthotic/Prosthetic Devices or Brace: No Gait Deviations General Gait Pattern Decreased Stride Length, Decreased Feet Clearance Factors Limiting Gait Function Factors Limiting Gait Function Decreased Activity Tolerance, Decreased Strength,Poor Balance,Respiratory Distress Comments Gait Comments pls refer to mobility section for details PT-Balance Assessment Sitting Balance and Reactions Static Sitting Balance Ability Good Dynamic Sitting Balance Ability Good Standing Balance and Reactions Static Standing Balance Ability Fair Dynamic Standing Balance Ability Fair Device Used FWW M5 PT-IP Objective Assessments Start: 03/13/21 15:23 Freq: NEEDED Status: Active Protocol: Document 03/13/21 14:20 AB (Rec: 03/13/21 15:36 [email or web address]) Orientation Orientation/Cognition Level of Alertness Alert Orientation Name,Place,Situation Safety Awareness Decreased Safety Awareness Gross Range of Motion Lower Extremity ROM Assessment Within Functional Limits Strength Lower Extremity Strength Assessment Within Functional Limits Coordination Assessment Gross Coordination Gross Coordination WNL Muscle Tone Muscle Tone WNL Yes M6 PT-IP Treatment Start: 03/13/21 15:23 Freq: NEEDED Status: Active Protocol: Document 03/13/21 14:20 AB (Rec: 03/13/21 15:36 AB [email or web address]) Physical Therapy Treatment Education Education Provided Safety M7 PT-IP Assessment and Plan Start: 03/13/21 15:23 Freq: NEEDED Status: Active Protocol: Document 03/13/21 14:20 AB (Rec: 03/13/21 15:36 AB [email or web address]) PT Summary Assessment and Plan Potential Rehabilitation Potential Fair Status of Condition at Evaluation Evolving Summary Impairments Pain,ROM,Strength,Balance,Bed Mobility,Transfers,Gait, Activity Tolerance Assessment Summary pt requiring min A with ambulation using FWW but has decrease activity tolerance with decrease O2 sat to 76% on heated high flow of 60L/min. will continue to do PT to improve activity tolerance and mobility independence. d/c plan depending on progress. Goals Bed Mobility Goal Independent Transfer Goal Independent,Front Wheeled Walker Gait Goal Independent,Front Wheel Walker Gait Distance 150 Other Goals up/down 1 step using FWW SBA improve ambulation without AD 150 ft SBA Days to Meet Goals 10 Frequency of Treatment Frequency Of Treatment Once a Day Treatment Plan Physical Therapy Treatment Plan Bed Mobility Training,Transfer Training,Gait Training, Therapeutic Exercise,Balance Retraining,Discharge Planning, Hot or Cold Pack,Neuromuscular Re-ed,Coordination Retraining Other Recommendations and Next Treatment ambulation Focus Precautions Other Precautions COVID precautions Recommendations To Nursing Amount of Assist Needed 1 Person Assist Discharge Recommendations PT Discharge Recommendations Home with Assistance Equipment Needed for Home Before FWW if not safe without AD Discharge Transportation Needs at Discharge Private Vehicle,Wheelchair/ Cabulance
--- NOTE | 2021-03-13 14:35 | DIET.PN1 ---
Addendum entered by Christine Gomez 03/13/21 14:41: Nutrition Diagnosis: Severe Acute Protein Calorie Malnutrition r/t taste changes and stress metabolism secondary to Covid19 aeb 6.4% unintentional weight loss in 1w (severe), pt obese BMI 31.9 at high risk for deconditioning and hypoventilation increasing difficulty c eating, POs meeting <50% needs x1w despite continued nutrition intervention trials. Original Note: Dietary Progress Note Pt continues with poor POs, pt no longer accepting fresh smoothies or yogurt. Did not touch cheese quesadilla or refried beans lunch yesterday, was asleep through breakfast this am. Kitchen, RD, and nursing staff communicating daily trialing variety of PO nourishments for pt. Kitchen to send up ONS Kike slushie this afternoon as pt feels he is craving cold fruit. Ht: 180.34 cm Wt: 103.9 kg (-6.4% in 1 w, severe) BMI: 34.1 UBW: 111kg Last BM: 03/08/21 (03/08/21 18:14) Jose Angel Score: 19 Diet: 03/06/21 Dinner Carbohydrate Consistent Diet Diet Modifications: easy to eat foods, bluebrry smoothie tid Carbohydrate level: Large (4 CHO) Bedtime snack: No Nutrition Percent Meal Consumed 25% 03/13/21 07:00 Percent Meal Consumed Pt refused lunch 03/12/21 13:00 Percent Meal Consumed 75% 03/12/21 09:00 Labs: RBC 4.64 X10^6/uL (4.5-5.9) 03/13/21 05:00 Hgb 14.0 g/dL (13.5-17.5) 03/13/21 05:00 Hct 42.4 % (41-53) 03/13/21 05:00 Creatinine 1.78 mg/dL (0.66-1.25) H 03/13/21 05:00 Lactate 1.6 mmol/L (0.7-2.1) 03/06/21 10:00 Ferritin 1170 ng/mL (18-464) H 03/09/21 04:37 NT-Pro-B Natriuret Pep 300 pg/mL (<125) H 03/06/21 10:00 Nutrition Diagnosis: Severe Acute Protein Calorie Malnutrition r/t taste changes and stress metabolism secondary to Covid19 aeb 6.4% unintentional weight loss in 1w (severe), pt obese BMI 31.9 at high risk for deconditioning and hypoventilation increasing difficulty c eating, POs meeting <50% needs x1w despite continued nutrition intervention trials. Interventions: 1. Kitchen and RD continue to offer PO nourishments-between general diet options, therapeutic foods, and oral nutrition supplements. Will try ONS Kike slushie this afternoon with cold fruit plate. EER: 1,800kcals (18kcal/kg), 85g PRO (0.8g/kg per renal PCM) Monitoring/Evaluations: following daily Electronically Signed by: Christine Gomez 03/13/21 14:35 Clinical Dietitian [address] [id number]
[2021-03-13] MEDS: INSULIN GLARGINE 100 UNIT/ML 3ML PEN 38 UNIT SUBCUT (20:55)
[2021-03-13] MEDS: MELATONIN 3 MG TABLET 6 MG PO (20:58)
[2021-03-13] MEDS: CEFEPIME 2 GM in SODIUM CHLORIDE 0.9% 100 ML IV (20:59)
[2021-03-13] MEDS: LINEZOLID 600 MG TABLET PO (21:08)
[2021-03-14] VITALS (23 sets, daily range): BP systolic 101–131; BP diastolic 55–74; PULSE 48–105; RESP 19–27; TEMP 29.6–36.9; O2SAT 89–100
[2021-03-14] MEDS: FUROSEMIDE 40 MG/4 ML VIAL IV ×2 (00:55→13:14)
--- NOTE | 2021-03-14 06:13 | PC.NURSE ---
Addendum entered by Vannessa Infante R.N. 03/14/21 06:27: 0625- Patient saturations dipping to 86%. RT notified. Will monitor. Original Note: 0600- Patient taking a break off CPap. Requires 60liters/85% plus 100% NRB to meet goal of 89% saturation. VBG ordered results wnl. Will monitor.
[2021-03-14 06:16] LABS: Add Manual Diff / Slide Review NO; Basophils Absolute Auto 300 /uL (0-100); Basophils Percent Auto 1.3 % (0-2); Eosinophils Absolute Auto 500 /uL (0-450); Eosinophils Percent Auto 2.3 % (2-4); Hematocrit 37.4 % (41-53); Hemoglobin 12.4 g/dL (13.5-17.5); Lymphocytes Absolute Auto 1500 /uL (1100-4500); Lymphocytes Percent Auto 7.6 % (25-40); Mean Corpuscular HGB Conc 33.1 % (30-36); Mean Corpuscular Hemoglobin 30.3 PG (26-34); Mean Corpuscular Volume 91.8 fL (80-100); Monocytes Absolute Auto 800 /uL (0-900); Monocytes Percent Auto 3.9 % (3-14); Neutrophils Absolute Auto 17100 /uL (1500-7000); Neutrophils Percent Auto 84.9 % (50-75); Platelet Count 378 X10^3/uL (150-400); Red Blood Cell Count 4.08 X10^6/uL (4.5-5.9); Red Cell Distribution Width 13.9 % (11.6-14.8); White Blood Cell Count 20.2 X10^3/uL (4.5-11.0)
[2021-03-14 06:19] LABS: HCO3 VBG 27 mmol/L (23-28); Oxygen Saturation VBG 49 % (70-75); PCO2 VBG 44.9 mmHg (45-50); PO2 VBG 27 mmHg (35-45); Total CO2 VBG 29 mmol/L (24-29); pH VBG 7.39 (7.33-7.43)
[2021-03-14 06:21] LABS: Alanine Aminotransferase 31 IU/L (<50); Albumin 3.3 g/dL (3.5-5.0); Alkaline Phosphatase 66 U/L (38-126); Aspartate Aminotransferase 32 IU/L (17-59); BUN Creatinine Ratio 53.1 (6-22); Bilirubin Total 0.8 mg/dL (0.2-1.3); Blood Urea Nitrogen 93 mg/dL (9-20); Calcium 8.7 mg/dL (8.4-10.2); Carbon Dioxide 27 mmol/L (22-32); Chloride 102 mmol/L (98-107); Estimated Glomerular Filt Rate 39.1 mL/min (>60); Globulin 3.3 g/dL (1.7-4.1); Glucose 170 mg/dL (80-110); HEMOLYSIS < 15 (0-50); Magnesium 2.3 mg/dL (1.6-2.3); Potassium 3.9 mmol/L (3.4-5.1); Sodium 137 mmol/L (137-145); Total Protein 6.6 g/dL (6.3-8.2)
--- NOTE | 2021-03-14 09:38 | P.TELICUPN_ITS ---
Subjective Subjective :: This patient was seen via real time interactive two-way audiovisual telecommunication. No acute issues overnight. On HFNC 60/90%. No improvement over the last couple of days. Current Medications Current Medications Medications: Home Medications felodipine 2.5 mg tablet,extended release 24 hr 2.5 mg PO DAILY 03/06/21 [History Confirmed 03/06/21] losartan 100 mg tablet 100 mg DAILY 03/06/21 [History Confirmed 03/06/21] metformin 500 mg tablet,extended release 24 hr 500 mg PO DAILY 03/06/21 [History Confirmed 03/06/21] Visit Medications (administered) Generic Name Dose Route Start Last Admin Trade Name Freq PRN Reason Stop Dose Admin Acetaminophen 650 mg 03/06/21 17:30 03/13/21 18:13 Acetaminophen 325 Mg Tablet PO 650 mg Q6HR PRN Administration Fever Dexamethasone 6 mg 03/07/21 09:00 03/13/21 09:43 Dexamethasone 10 Mg/Ml Vial IV 6 mg DAILY CARRILLO Administration Docusate Sodium 100 mg 03/06/21 21:00 03/13/21 20:58 Docusate 100 Mg Capsule PO 100 mg BID CARRILLO Administration Enoxaparin Sodium 110 mg 03/09/21 09:00 03/13/21 20:59 Enoxaparin 60 Mg/0.6 Ml Syringe SUBCUT 110 mg BID CARRILLO Administration Fluticasone Propionate 1 spray 03/11/21 09:45 03/13/21 20:58 Fluticasone 120 [place]/16 Gm [place].Susp NASAL 1 spray BID CARRILLO Administration Furosemide 40 mg 03/07/21 00:00 03/14/21 00:55 Furosemide 40 Mg/4 Ml Vial IV 40 mg Q12HR CARRILLO Administration Heparin Sodium (Porcine) 50 unit 03/08/21 09:00 03/13/21 20:59 Heparin Flush (Cl/Picc/Mid-Line) 50 Unit/5 Ml Syringe IV 50 unit BID CARRILLO Administration Heparin Sodium (Porcine) 50 unit 03/07/21 22:43 03/12/21 23:26 Heparin Flush (Cl/Picc/Mid-Line) 50 Unit/5 Ml Syringe IV 50 unit PRN PRN Administration Flush dexmedeTOMIDine in 0.9 % NaCL 400 mcg in 100 mls @ 5.315 mls/hr 03/09/21 23:45 03/12/21 06:05 Precedex IV Infused TITRATE CARRILLO Titration Protocol 0.2 MCG/KG/HR Cefepime HCl 2 gm/ Sodium 100 mls @ 200 mls/hr 03/11/21 12:30 03/13/21 20:59 Chloride IV 100 mls/hr BID CARRILLO Administration Insulin Glargine 38 unit 03/09/21 21:00 03/13/21 20:55 Insulin Glargine 100 Unit/Ml 3ml Pen SUBCUT 38 unit BEDTIME CARRILLO Administration Insulin Human Lispro 0 unit 03/06/21 21:00 03/13/21 20:54 Insulin Lispro 100 Unit/Ml 3ml Vial SUBCUT 5 unit ACHS CARRILLO Administration Protocol Linezolid 600 mg 03/13/21 21:00 03/13/21 21:08 Linezolid 600 Mg Tablet PO 600 mg BID CARRILLO Administration Melatonin 6 mg 03/10/21 21:00 03/13/21 20:58 Melatonin 3 Mg Tablet PO 6 mg BEDTIME CARRILLO Administration Sodium Chloride 10 ml 03/07/21 22:44 03/12/21 23:26 Sodium Chloride 0.9% Flush IV 10 ml PRN PRN Administration Flush Sodium Chloride 1 spray 03/13/21 08:47 03/13/21 09:44 Sodium Chloride Nasal [place] NASAL 1 spray PRN PRN Administration Congestion Objective Ventilator Parameters: Ventilator Settings FiO2 83 Labs Result Diagrams: 03/14/21 06:00 03/14/21 06:00 Labs: Laboratory Results - last 24 hr 03/14/21 03/14/21 03/14/21 06:00 06:00 06:05 WBC 20.2 H RBC 4.08 L Hgb 12.4 L Hct 37.4 L MCV 91.8 MCH 30.3 MCHC 33.1 RDW 13.9 Plt Count 378 Neut % (Auto) 84.9 H Lymph % (Auto) 7.6 L [place] % (Auto) 3.9 Eos % (Auto) 2.3 Baso % (Auto) 1.3 Neut # (Auto) 90186 H Lymph # (Auto) 1500 [place] # (Auto) 800 Eos # (Auto) 500 H Baso # (Auto) 300 H VBG pH 7.39 VBG pCO2 44.9 L VBG pO2 27 L VBG HCO3 27 VBG Total CO2 29 VBG O2 Saturation 49 L VBG Base Excess 3.0 Sodium 137 Potassium 3.9 Chloride 102 Carbon Dioxide 27 BUN 93 H Creatinine 1.75 H Estimated GFR 39.1 L BUN/Creatinine Ratio 53.1 H Glucose 170 H Calcium 8.7 Magnesium 2.3 Total Bilirubin 0.8 AST 32 ALT 31 Alkaline Phosphatase 66 Total Protein 6.6 Albumin 3.3 L Globulin 3.3 Albumin/Globulin Ratio 1.0 Exam Vital Signs (past 8 hours): - 03/14/21 01:39 03/14/21 02:00 03/14/21 03:00 Temperature Pulse Rate 56 L 52 L Respiratory Rate Blood Pressure 104/55 L Pulse Oximetry 97 98 03/14/21 03:36 03/14/21 03:54 03/14/21 04:00 Temperature 98.5 F Pulse Rate 54 L 52 L Respiratory Rate 23 Blood Pressure 104/55 L 101/55 L 101/55 L Pulse Oximetry 98 95 03/14/21 05:00 03/14/21 05:55 03/14/21 06:00 Temperature Pulse Rate 55 L 52 L 58 L Respiratory Rate 23 Blood Pressure 101/55 L Pulse Oximetry 98 90 L 89 L 03/14/21 06:35 03/14/21 07:00 03/14/21 08:00 Temperature Pulse Rate 56 L 76 Respiratory Rate Blood Pressure Pulse Oximetry 90 L 89 L 92 03/14/21 08:54 Temperature Pulse Rate 73 Respiratory Rate 22 Blood Pressure Pulse Oximetry 94 Fraction of Inspired Oxygen 0.80 Oxygen Delivery Method CPAP Oxygen Flow Rate 65 Assessment & Plan Assessment & Plan narrative: # Acute hypoxemia respiratory falure -- Secondary to COVID PNA and possible superimposed PNA -- On linezolid/cefepime -- Remains on HFNC 60/90% -- Agree with alternating NIVVP to help promote recruitment -- Monitor closely for need for intubation -- Encourage proning as tolerated -- Cont diuresis -- Goal SpO2 > 88% # COVID PNA -- On decadron and baricitinib -- Cont rx as above # JALEEL -- BUN rising and creatinine improving -- Cont diuresis -- Avoid nephrotoxin agents -- Daily BMP # HAP -- On linezolid/cefepime -- Unable to collect sputum cx -- Recommend sending MRSA swab and if negative then stop linezolid and cont cefepime X 7 days # RUE DVT -- On therapeutic lovenox Case d/w hospitalist, RN, and pharmacist. Time Spent With Patient Critical Care time: I spent a total of [] minutes of critical care time on this patient's care today; this time is exclusive of procedural time.
[2021-03-14] MEDS: DEXAMETHASONE 10 MG/ML VIAL 6 MG IV (09:45)
[2021-03-14] MEDS: BARICITINIB 2 MG TABLET PO (09:45)
[2021-03-14] MEDS: ENOXAPARIN 60 MG/0.6 ML SYRINGE 110 MG SUBCUT ×2 (09:46→20:45)
[2021-03-14] MEDS: CEFEPIME 2 GM in SODIUM CHLORIDE 0.9% 100 ML 200 ML IV ×2 (09:46→20:43)
[2021-03-14] MEDS: DOCUSATE 100 MG CAPSULE PO ×2 (09:46→20:44)
[2021-03-14] MEDS: LINEZOLID 600 MG TABLET PO (11:00)
--- NOTE | 2021-03-14 11:11 | PT-IP ANOTE ---
Per RN, hold until PM to allow pt to recover and adjust to CPAP set up.
[2021-03-14] MEDS: INSULIN LISPRO 100 UNIT/ML 3ML VIAL SUBCUT ×3 (14:00→21:07)
--- NOTE | 2021-03-14 14:15 | PT.IPTN ---
Current Diagnoses Acidosis (03/06/21) Acute respiratory failure with hypoxia (03/06/21) Physical Therapy Treatment Note M2 PT-IP Current Condition Start: 03/13/21 15:23 Freq: NEEDED Status: Active Protocol: Document 03/13/21 14:20 AB (Rec: 03/13/21 15:36 AB [id number]) Physical Therapy Current Condition Current Condition Evaluation Date 03/13/21 Treatment Diagnosis Covid PNA; difficulty in walking Onset Date 03/06/21 M3 PT-IP Subjective Start: 03/13/21 15:23 Freq: NEEDED Status: Active Protocol: Document 03/14/21 13:40 KS (Rec: 03/14/21 15:07 KS [id number]) Subjective Physical Therapy Visit Type Type Treatment Note Visit Start Time 13:40 Visit Stop Time 14:15 Total Visit Minutes 35 Number of MARKET DEVELOPMENT SPECIALIST Visits 1 Physical Therapy Visit Comments Patient Comments agreed to do PT M4 PT-IP Mobility and Gait Start: 03/13/21 15:23 Freq: NEEDED Status: Active Protocol: Document 03/14/21 13:40 KS (Rec: 03/14/21 15:07 KS [id number]) PT-Transfer Assessment Sit to and From Stand Sit to and from Stand Minimal Assistance,1 Person Assistance,Use of Upper Extremities Equipment Transfer Assistive Device Gait Belt,Front Wheeled Walker Orthotic/Prosthetic Devices or Brace: No Comments Mobility Comments Pt in chair on heated high flow 60L/min and O2 sat 88-91% upon arrival from therapy. Pt tolerated 1x10 bilateral ankle pumps, quad sets, and seated marching w/ O2 >86% w/ rest break between each set. Pt required cues to take rest breaks, avoid talking while performing exercises, and for deep breathing. Pt then sit<> stand w/ FWW Min A. Pt completed ~[address] and O2 decreased to 83%. Instructed pt to sit and pt reported fatigue. O2 increased back to 89%. Pt completed additional 1x10 bilateral ankle pumps, quad sets, and seated marches. Pt stated he felt better following therapy today and is eager to get stronger. Pt left in room on 60L O2 at 91%. Gait Assessment Gait Gait Assistance Required: Contact Guard Assist,1 Person Assist Assistive Devices Assistive Device Gait Belt,Front Wheeled Walker Orthotic/Prosthetic Devices or Brace: No Factors Limiting Gait Function Factors Limiting Gait Function Decreased Activity Tolerance, Decreased Strength,Poor Balance,Respiratory Distress Comments Gait Comments pre-gait, marching in place ~ 10 seconds only PT-Balance Assessment Sitting Balance and Reactions Static Sitting Balance Ability Good Dynamic Sitting Balance Ability Good Standing Balance and Reactions Static Standing Balance Ability Fair Dynamic Standing Balance Ability Fair Device Used FWW M5 PT-IP Objective Assessments Start: 03/13/21 15:23 Freq: NEEDED Status: Active Protocol: Document 03/13/21 14:20 AB (Rec: 03/13/21 15:36 AB [id number]) Orientation Orientation/Cognition Level of Alertness Alert Orientation Name,Place,Situation Safety Awareness Decreased Safety Awareness Gross Range of Motion Lower Extremity ROM Assessment Within Functional Limits Strength Lower Extremity Strength Assessment Within Functional Limits Coordination Assessment Gross Coordination Gross Coordination WNL Muscle Tone Muscle Tone WNL Yes M6 PT-IP Treatment Start: 03/13/21 15:23 Freq: NEEDED Status: Active Protocol: Document 03/14/21 13:40 KS (Rec: 03/14/21 15:07 KS [id number]) Physical Therapy Treatment Exercises Exercises Ankle Pumps,Quad Sets Education Education Provided Safety Other Treatments Other Treatment Performed Seated and standing marches M7 PT-IP Assessment and Plan Start: 03/13/21 15:23 Freq: NEEDED Status: Active Protocol: Document 03/14/21 13:40 KS (Rec: 03/14/21 15:07 KS [id number]) PT Summary Assessment and Plan Potential Rehabilitation Potential Fair Status of Condition at Evaluation Evolving Summary Impairments Pain,ROM,Strength,Balance,Bed Mobility,Transfers,Gait, Activity Tolerance Progress Towards Goals Slow Progress due to Medical Issues Assessment Summary Pt continues to require Min A for sit<>stand, unable to tolerate ambulaton due to desat to 83% and fatigue during standing marches in place. Pt compelted 2x10 ankle pumps, quad sets, and seated marches w/ O2 between 86-89%. Pt O2 increased to 91% following therapy. Will continue to progress to improve tolerance for activity . D/c plan depending on progress. Goals Bed Mobility Goal Independent Transfer Goal Independent,Front Wheeled Walker Gait Goal Independent,Front Wheel Walker Gait Distance 150 Other Goals up/down 1 step using FWW SBA improve ambulation without AD 150 ft SBA Days to Meet Goals 10 Frequency of Treatment Frequency Of Treatment Once a Day Treatment Plan Physical Therapy Treatment Plan Bed Mobility Training,Transfer Training,Gait Training, Therapeutic Exercise,Balance Retraining,Discharge Planning, Hot or Cold Pack,Neuromuscular Re-ed,Coordination Retraining Precautions Other Precautions COVID precautions Recommendations To Nursing Amount of Assist Needed 1 Person Assist Discharge Recommendations PT Discharge Recommendations Home with Assistance Equipment Needed for Home Before FWW if not safe without AD Discharge Transportation Needs at Discharge Private Vehicle,Wheelchair/ Cabulance
--- NOTE | 2021-03-14 14:40 | PC.NURSE ---
Am shift Assumed care of Pt @ 0700, RR 32, HHFNC 60L 90%Fio2. Pt visably agitated this AM, attempting to remove Tele, CPAP mask later in shift. You have me chained to this bed! Reminded Pt about Oxygen demands and conserving energy to allow best recovery from activity(Transfer to chair) Pt has been using NRB mask in addition to HHFNC settings if he is feeling SOB. Discussed increased Oxygen needs with patient and with at length today. Pt's , I dont want anyone to give up on him, he is still my Spouse expresses frustration in visitation policy r/t Covid. Education provided about public safety and keeping strict patient isolation to prevent illness. Offered to facilitate a Facetime call, daughter is home with Spouse and can assist in this a bit. Call into [employer] for tablet or ipad use, unavailable. Will offer personal phone for call later in shift. Pt continues with increased anxiety, attempting to remove leads, CPAP while up in chair. Discussed with Dr Hall, and trial PO Ativan given to tolerate CPAP while up in bed. Given and Pt had very positive results.
--- NOTE | 2021-03-14 16:37 | P.PN_ITS ---
Subjective Subjective Date Patient Seen: 03/14/21 Time Patient Seen: 08:00 Interval history: He denies feeling significantly short of breath. He has continued to require significantly high oxygen. He has not proned significantly per nursing. Did discuss with patient that he has continued to do poorly and he has a guarded prognosis as he has not significantly improved despite treatment. Did discuss with him he may need intubation at any day and that outcomes are often poor with intubation. He stated understood and still wanted to be full code. Exam Vital Signs (past 8 hours): - 03/14/21 08:54 03/14/21 11:49 03/14/21 14:01 Pulse Rate 73 105 H Respiratory Rate 22 24 Blood Pressure 131/69 131/69 Pulse Oximetry 94 92 03/14/21 16:16 Pulse Rate 93 H Respiratory Rate 20 Blood Pressure 121/74 Pulse Oximetry 93 Fraction of Inspired Oxygen 70 Oxygen Delivery Method CPAP Oxygen Flow Rate 65 Narrative Exam Narrative: GEN: no acute distress PULM: decreased breath sounds bilaterally CARDIOVASCULAR: regular rate and rhythm with no murmurs ABDOMEN:soft nontender nondistended, no organomegaly, normval bowel sounds Objective Labs Result Diagrams: 03/14/21 06:00 03/14/21 06:00 Labs: Laboratory Results - last 24 hr 03/14/21 03/14/21 03/14/21 06:00 06:00 06:05 WBC 20.2 H RBC 4.08 L Hgb 12.4 L Hct 37.4 L MCV 91.8 MCH 30.3 MCHC 33.1 RDW 13.9 Plt Count 378 Neut % (Auto) 84.9 H Lymph % (Auto) 7.6 L [place] % (Auto) 3.9 Eos % (Auto) 2.3 Baso % (Auto) 1.3 Neut # (Auto) 25472 H Lymph # (Auto) 1500 [place] # (Auto) 800 Eos # (Auto) 500 H Baso # (Auto) 300 H VBG pH 7.39 VBG pCO2 44.9 L VBG pO2 27 L VBG HCO3 27 VBG Total CO2 29 VBG O2 Saturation 49 L VBG Base Excess 3.0 Sodium 137 Potassium 3.9 Chloride 102 Carbon Dioxide 27 BUN 93 H Creatinine 1.75 H Estimated GFR 39.1 L BUN/Creatinine Ratio 53.1 H Glucose 170 H Calcium 8.7 Magnesium 2.3 Total Bilirubin 0.8 AST 32 ALT 31 Alkaline Phosphatase 66 Total Protein 6.6 Albumin 3.3 L Globulin 3.3 Albumin/Globulin Ratio 1.0 PFSH Medical History Diabetes History of diabetes mellitus Hypertension Family History (Updated 03/06/21 @ 17:44 by Hannah Li MD) Father Cancer Mother Multiple sclerosis Social History marital status: household members: spouse lives independently: Yes Smoking Status: Never smoker Assessment & Plan Assessment & Plan narrative: 1. Acute respiratory failure with hypoxia, present on admission, secondary to COVID 19 pneumonia. -will continue decadron, baricitinib (renally dosed). Discontinued remdesevir for renal disease and bradycardia. Continue to wean O2 as tolerated, still on heated high flow. -on lovenox for RUE DVT. -continue proning -rising WBC, no fever. UA negative. Procalcitonin borderline at 0.55. CXR without obvious changes. UA negative. Added antibiotics as WBC close to 19. [employer] Administrator recommended cefepime and linezolid. Continue to monitor, attempt sputum culture but not coughing sputum. Linezolid dc as mrsa swab negative. 2. Acute, possibly on Chronic Renal Failure -Creatinine elevated at 2.75, unsure of baseline, continues to slowly improve since admission now to 1.7 -Lactic Acid 1.6 -Losartan on hold -continue lasix 3. Hypertension -blood pressure well controlled -hold losartan and felodipine. On lasix as noted above. 4. Type 2 Diabetes -hold metformin and glipizide -basal bolus insulin, decreased to 35 U at night given poor PO intake due to hypoxia. -freelance photographer consulted today, appreciate recommendations. 5. Line associated DVT of the RUE. ?- patient with RUE DVT associated with line placement. ?- removef RUE line, replacef with L sided midline. ?- started on anticoagulation with Lovenox. 6. RAÚL ?- provided CPAP therapy when at rest. 7. Metabolic encephalopathy, improved ?- waxing and waning, secondary to ICU delirium and hypoxia. Continue above therapies for hypoxia. Time Spent With Patient Critical Care time: I spent a total of [] minutes of critical care time on this patient's care today; this time is exclusive of procedural time.
[2021-03-14] MEDS: LORazepam 0.5 MG TABLET PO (17:42)
[2021-03-14 17:47] LABS: Glucose 494 mg/dL (80-110)
--- NOTE | 2021-03-14 17:48 | PC.NURSE ---
Critical lab called by Scott from lab Glucose reading of 494, pt changed to high dose sliding scale per hospitalist, will continue to monitor
[2021-03-14] MEDS: MELATONIN 3 MG TABLET 6 MG PO (20:44)
[2021-03-14] MEDS: FLUTICASONE 120 SPRAY/16 GM SPRAY.SUSP NASAL (20:45)
[2021-03-14] MEDS: INSULIN GLARGINE 100 UNIT/ML 3ML PEN 38 UNIT SUBCUT (21:07)
--- NOTE | 2021-03-14 21:11 | PM.ICURNDS ---
- Note: Pt discueed w bedside nurse and CINDY Lee during multidsciplinary rounds. Pt w hypoxic resp failure from COVID, he has had slowly increasing O2 reqiurement. Now on 90% via HFNC. d/w bedside staff that pt may be heading towrard intubation. Discussed possible BiPAP but in my experience, these patients invariably fail BiPAP and need to be intubated and become more of a risk for decompensation during intubation. Will cont to monitor and intubate if needed.
[2021-03-15] VITALS (16 sets, daily range): BP systolic 96–133; BP diastolic 56–69; PULSE 68–100; RESP 18–28; TEMP 31–36.6; O2SAT 85–100
[2021-03-15] MEDS: LORazepam 0.5 MG TABLET PO ×3 (02:46→19:19)
--- NOTE | 2021-03-15 09:39 | PM.PN.EICU ---
Subjective Subjective :: This patient was seen via real time interactive two-way audiovisual telecommunication. No acute issues overnight. On HFNC 60/80% with SpO2 ~92%. Sitting up in chair and tolerating PO intake. Current Medications Current Medications Medications: Home Medications felodipine 2.5 mg tablet,extended release 24 hr 2.5 mg PO DAILY 03/06/21 [History Confirmed 03/06/21] losartan 100 mg tablet 100 mg DAILY 03/06/21 [History Confirmed 03/06/21] metformin 500 mg tablet,extended release 24 hr 500 mg PO DAILY 03/06/21 [History Confirmed 03/06/21] Visit Medications (administered) Generic Name Dose Route Start Last Admin Trade Name Freq PRN Reason Stop Dose Admin Acetaminophen 650 mg 03/06/21 17:30 03/13/21 18:13 Acetaminophen 325 Mg Tablet PO 650 mg Q6HR PRN Administration Fever Dexamethasone 6 mg 03/07/21 09:00 03/14/21 09:45 Dexamethasone 10 Mg/Ml Vial IV 6 mg DAILY CARRILLO Administration Docusate Sodium 100 mg 03/06/21 21:00 03/14/21 20:44 Docusate 100 Mg Capsule PO 100 mg BID CARRILLO Administration Enoxaparin Sodium 110 mg 03/09/21 09:00 03/14/21 20:45 Enoxaparin 60 Mg/0.6 Ml Syringe SUBCUT 110 mg BID CARRILLO Administration Fluticasone Propionate 1 spray 03/11/21 09:45 03/14/21 20:45 Fluticasone 120 [place]/16 Gm [place].Susp NASAL 1 spray BID CARRILLO Administration Heparin Sodium (Porcine) 50 unit 03/08/21 09:00 03/14/21 20:44 Heparin Flush (Cl/Picc/Mid-Line) 50 Unit/5 Ml Syringe IV 50 unit BID CARRILLO Administration Heparin Sodium (Porcine) 50 unit 03/07/21 22:43 03/12/21 23:26 Heparin Flush (Cl/Picc/Mid-Line) 50 Unit/5 Ml Syringe IV 50 unit PRN PRN Administration Flush dexmedeTOMIDine in 0.9 % NaCL 400 mcg in 100 mls @ 5.315 mls/hr 03/09/21 23:45 03/12/21 06:05 Precedex IV Infused TITRATE CARRILLO Titration Protocol 0.2 MCG/KG/HR Cefepime HCl 2 gm/ Sodium 100 mls @ 200 mls/hr 03/11/21 12:30 03/14/21 21:15 Chloride IV Infused BID CARRILLO Infusion Insulin Glargine 38 unit 03/09/21 21:00 03/14/21 21:07 Insulin Glargine 100 Unit/Ml 3ml Pen SUBCUT 38 unit BEDTIME CARRILLO Administration Insulin Human Lispro 0 unit 03/06/21 21:00 03/14/21 21:07 Insulin Lispro 100 Unit/Ml 3ml Vial SUBCUT 10 unit ACHS CARRILLO Administration Protocol Lorazepam 0.5 mg 03/14/21 16:57 03/15/21 02:46 Lorazepam 0.5 Mg Tablet PO 0.5 mg Q6HR PRN Administration Anxiety Melatonin 6 mg 03/10/21 21:00 03/14/21 20:44 Melatonin 3 Mg Tablet PO 6 mg BEDTIME CARRILLO Administration Sodium Chloride 10 ml 03/07/21 22:44 03/12/21 23:26 Sodium Chloride 0.9% Flush IV 10 ml PRN PRN Administration Flush Sodium Chloride 1 spray 03/13/21 08:47 03/13/21 09:44 Sodium Chloride Nasal [place] NASAL 1 spray PRN PRN Administration Congestion Objective Ventilator Parameters: Ventilator Settings FiO2 83 Labs Result Diagrams: 03/14/21 06:00 03/14/21 17:30 Labs: Laboratory Results - last 24 hr 03/14/21 17:30 Glucose 494 H* D Exam Vital Signs (past 8 hours): - 03/15/21 03:12 03/15/21 04:23 03/15/21 06:27 Temperature 97.1 F L Pulse Rate 81 71 80 Respiratory Rate 28 H 20 20 Blood Pressure 105/57 L 105/57 L 105/57 L Pulse Oximetry 94 100 94 03/15/21 08:35 Temperature 97.7 F Pulse Rate 91 H Respiratory Rate 19 Blood Pressure 133/69 Pulse Oximetry 85 L Fraction of Inspired Oxygen 80 Oxygen Delivery Method Heated High Flow Oxygen Flow Rate 60 Assessment & Plan Assessment & Plan narrative: # Acute hypoxemia respiratory falure -- Secondary to COVID PNA and possible superimposed PNA -- Cont cefepime X 7 days for presumptive negative cx bacterial PNA -- FiO2 improving -- Monitor closely for need for intubation -- Encourage proning as tolerated -- Cont diuresis -- Goal SpO2 > 88% # COVID PNA -- Treated with baricitinib -- Cont decadron -- Cont diuresis and self proning as tolerated # JALEEL -- BUN rising and creatinine improving? -- Pending repeat renal panel -- Cont diuresis -- Avoid nephrotoxin agents -- Daily BMP # HAP -- Cont cefepime X 7 days # RUE DVT -- On therapeutic lovenox -- Monitor renal function closely ; if worsen then will need to switch to heparin infusion Case d/w hospitalist, RN, and pharmacist. Time Spent With Patient Critical Care time: I spent a total of [] minutes of critical care time on this patient's care today; this time is exclusive of procedural time.
[2021-03-15] MEDS: FUROSEMIDE 40 MG/4 ML VIAL IV (10:17)
[2021-03-15] MEDS: DOCUSATE 100 MG CAPSULE PO ×2 (10:17→20:54)
[2021-03-15] MEDS: DEXAMETHASONE 10 MG/ML VIAL 6 MG IV (10:18)
[2021-03-15] MEDS: ENOXAPARIN 60 MG/0.6 ML SYRINGE 110 MG SUBCUT (10:18)
[2021-03-15] MEDS: INSULIN LISPRO 100 UNIT/ML 3ML VIAL SUBCUT ×4 (10:19→22:18)
[2021-03-15] MEDS: BARICITINIB 2 MG TABLET PO (10:19)
[2021-03-15] MEDS: CEFEPIME 2 GM in SODIUM CHLORIDE 0.9% 100 ML IV ×2 (10:20→20:54)
[2021-03-15] MEDS: FLUTICASONE 120 SPRAY/16 GM SPRAY.SUSP NASAL (10:21)
[2021-03-15] MEDS: INSULIN GLARGINE 100 UNIT/ML 3ML PEN 10 UNIT SUBCUT (10:21)
[2021-03-15] MEDS: BISACODYL 10 MG SUPP PR (11:12)
--- NOTE | 2021-03-15 11:29 | PT-IP ANOTE ---
Attempted to see pt at 11:29 AM, per RN hold PT until PM due to pts high level of fatigue this AM.
[2021-03-15 11:36] LABS: Add Manual Diff / Slide Review NO; Basophils Absolute Auto 400 /uL (0-100); Basophils Percent Auto 1.4 % (0-2); Eosinophils Absolute Auto 400 /uL (0-450); Eosinophils Percent Auto 1.5 % (2-4); Hematocrit 32.4 % (41-53); Hemoglobin 10.5 g/dL (13.5-17.5); Lymphocytes Absolute Auto 1700 /uL (1100-4500); Lymphocytes Percent Auto 6.5 % (25-40); Mean Corpuscular HGB Conc 32.4 % (30-36); Mean Corpuscular Volume 92.7 fL (80-100); Monocytes Absolute Auto 1100 /uL (0-900); Monocytes Percent Auto 3.9 % (3-14); Neutrophils Absolute Auto 23400 /uL (1500-7000); Neutrophils Percent Auto 86.7 % (50-75); Platelet Count 425 X10^3/uL (150-400); Red Blood Cell Count 3.49 X10^6/uL (4.5-5.9); Red Cell Distribution Width 13.6 % (11.6-14.8); White Blood Cell Count 26.9 X10^3/uL (4.5-11.0)
[2021-03-15 13:08] LABS: Albumin 3.2 g/dL (3.5-5.0); BUN Creatinine Ratio 52.5 (6-22); Carbon Dioxide 22 mmol/L (22-32); Chloride 97 mmol/L (98-107); Estimated Glomerular Filt Rate 30.2 mL/min (>60); Glucose 417 mg/dL (80-110); HEMOLYSIS < 15 (0-50); Phosphorous 4.2 mg/dL (2.3-3.7); Potassium 4.3 mmol/L (3.4-5.1); Sodium 132 mmol/L (137-145)
[2021-03-15 13:16] LABS: Blood Urea Nitrogen 115 mg/dL (9-20)
--- NOTE | 2021-03-15 13:53 | PT.IPTN ---
Current Diagnoses Acidosis (03/06/21) Acute respiratory failure with hypoxia (03/06/21) Physical Therapy Treatment Note M2 PT-IP Current Condition Start: 03/13/21 15:23 Freq: NEEDED Status: Active Protocol: Document 03/13/21 14:20 AB (Rec: 03/13/21 15:36 AB [id number]) Physical Therapy Current Condition Current Condition Evaluation Date 03/13/21 Treatment Diagnosis Covid PNA; difficulty in walking Onset Date 03/06/21 M3 PT-IP Subjective Start: 03/13/21 15:23 Freq: NEEDED Status: Active Protocol: Document 03/15/21 13:25 KS (Rec: 03/15/21 14:21 KS [id number]) Subjective Physical Therapy Visit Type Type Treatment Note Visit Start Time 13:25 Visit Stop Time 13:53 Total Visit Minutes 28 Number of STAFF DEVELOPMENT NURSE Visits 2 Physical Therapy Visit Comments Patient Comments agreed to do PT, but reporting higher level of fatigue M4 PT-IP Mobility and Gait Start: 03/13/21 15:23 Freq: NEEDED Status: Active Protocol: Document 03/15/21 13:25 KS (Rec: 03/15/21 14:21 KS [id number]) PT-Bed Mobility Assessment Scooting Scooting to Edge of Bed Standby Assistance PT-Transfer Assessment Comments Mobility Comments Pt sitting in chair upon arrival from therapy and reporting increased level of fatigue today. Pt stated he would pariticpate in LE exercises but did not wish to stand or transfer back to bed. Pt completed 4x5 bilateral ankle pumps, quad sets, glute sets, and seated marches. Pt then completed 1x10 bilateral resisted bicep curls and overhead press. Pt tolerated well, O2 on 60L throughout treatment w/ supplemental O2 applied during exercises. Pts O2 mainly 92-99%, dropping to 85% briefly, but recovered < 1min. Pt left in room w/ all needs in reach O2 at 98% on 60L. PT-Balance Assessment Sitting Balance and Reactions Static Sitting Balance Ability Good Dynamic Sitting Balance Ability Good Standing Balance and Reactions Static Standing Balance Ability Fair Dynamic Standing Balance Ability Fair Device Used FWW M5 PT-IP Objective Assessments Start: 03/13/21 15:23 Freq: NEEDED Status: Active Protocol: Document 03/13/21 14:20 AB (Rec: 03/13/21 15:36 AB [id number]) Orientation Orientation/Cognition Level of Alertness Alert Orientation Name,Place,Situation Safety Awareness Decreased Safety Awareness Gross Range of Motion Lower Extremity ROM Assessment Within Functional Limits Strength Lower Extremity Strength Assessment Within Functional Limits Coordination Assessment Gross Coordination Gross Coordination WNL Muscle Tone Muscle Tone WNL Yes M6 PT-IP Treatment Start: 03/13/21 15:23 Freq: NEEDED Status: Active Protocol: Document 03/15/21 13:25 KS (Rec: 03/15/21 14:21 KS [id number]) Physical Therapy Treatment Exercises Exercises Ankle Pumps,Gluteal Sets,Quad Sets,Shoulder Flexion,Elbow Flexion/Extension Other Treatments Other Treatment Performed Seated marching M7 PT-IP Assessment and Plan Start: 03/13/21 15:23 Freq: NEEDED Status: Active Protocol: Document 03/15/21 13:25 KS (Rec: 03/15/21 14:21 KS [id number]) PT Summary Assessment and Plan Potential Rehabilitation Potential Fair Status of Condition at Evaluation Evolving Summary Impairments Pain,ROM,Strength,Balance,Bed Mobility,Transfers,Gait, Activity Tolerance Progress Towards Goals Slow Progress due to Medical Issues Assessment Summary Pt reported too high level of fatigue to try standing or transferring today, but agreed to exercises in chair. Pt on 60L O2 throughout treatment w/ O2 ranging from 85-99%. O2 decreased with talking and exercise, but recovers quickly . Pt able to tolerate 4x5 bilateral ankle pumps, quad sets, glute sets, and seated marches and 1x10 bilateral resisted elbow flexion and shoulder flexion. Will continue to progress to improve tolerance for activity . D/c plan depending on progress. Goals Bed Mobility Goal Independent Transfer Goal Independent,Front Wheeled Walker Gait Goal Independent,Front Wheel Walker Gait Distance 150 Other Goals up/down 1 step using FWW SBA improve ambulation without AD 150 ft SBA Days to Meet Goals 10 Frequency of Treatment Frequency Of Treatment Once a Day Treatment Plan Physical Therapy Treatment Plan Bed Mobility Training,Transfer Training,Gait Training, Therapeutic Exercise,Balance Retraining,Discharge Planning, Hot or Cold Pack,Neuromuscular Re-ed,Coordination Retraining Precautions Other Precautions COVID precautions Recommendations To Nursing Amount of Assist Needed 1 Person Assist Discharge Recommendations PT Discharge Recommendations Home with Assistance Equipment Needed for Home Before FWW if not safe without AD Discharge Transportation Needs at Discharge Private Vehicle,Wheelchair/ Cabulance
[2021-03-15] MEDS: SODIUM CHLORIDE 0.9% 500 ML IV (13:54)
--- NOTE | 2021-03-15 15:29 | PC.NURSE ---
Am shift Pt is still using HHFNC 60L 80% Fio2.Spo2 staying 85-94% while sitting up in bed. Bed bath done, Pt is slightly flat affect and seems down today. Ativan PO given with good effect. Up in chair for most of day. Lungs dim and clear, nonproductive cough . 500 mls IV bolus started over 2 hours for critical BUN @ 115. Dr Hogue called for update and requesting transfer for dialysis, updated on bolus and update to Dr Mark. Coordinator made aware. Add, Lovenox to be changed to Heparin gtt d/t renal function. Update to Dr Mark.
--- NOTE | 2021-03-15 15:59 | P.PN_ITS ---
Subjective Subjective Date Patient Seen: 03/15/21 Time Patient Seen: 08:00 Interval history: Today he states he does not feel short of breath. He has proned consistently. He continues to be on high flow oxygen. Exam Vital Signs (past 8 hours): - 03/15/21 08:35 03/15/21 08:40 03/15/21 12:00 Temperature 97.7 F 98 F Pulse Rate 91 H 100 H 85 Respiratory Rate 19 24 20 Blood Pressure 133/69 96/60 Pulse Oximetry 85 L 94 97 03/15/21 13:00 Temperature Pulse Rate 84 Respiratory Rate 24 Blood Pressure Pulse Oximetry 96 Fraction of Inspired Oxygen 80 Oxygen Delivery Method Heated High Flow Oxygen Flow Rate 60 Narrative Exam Narrative: GEN: no acute distress PULM: decreased breath sounds bilaterally CARDIOVASCULAR: regular rate and rhythm with no murmurs ABDOMEN:soft nontender nondistended, no organomegaly, normval bowel sounds Objective Labs Result Diagrams: 03/15/21 11:15 03/15/21 11:15 Labs: Laboratory Results - last 24 hr 03/14/21 03/15/21 03/15/21 17:30 11:15 11:15 WBC 26.9 H RBC 3.49 L Hgb 10.5 L Hct 32.4 L MCV 92.7 MCH 30.0 MCHC 32.4 RDW 13.6 Plt Count 425 H Neut % (Auto) 86.7 H Lymph % (Auto) 6.5 L [place] % (Auto) 3.9 Eos % (Auto) 1.5 L Baso % (Auto) 1.4 Neut # (Auto) 47881 H Lymph # (Auto) 1700 [place] # (Auto) 1100 H Eos # (Auto) 400 Baso # (Auto) 400 H Sodium 132 L Potassium 4.3 Chloride 97 L Carbon Dioxide 22 BUN 115 H* Creatinine 2.19 H Estimated GFR 30.2 L BUN/Creatinine Ratio 52.5 H Glucose 494 H* D 417 H Calcium 9.0 Phosphorus 4.2 H Albumin 3.2 L PFSH Medical History Diabetes History of diabetes mellitus Hypertension Family History (Updated 03/06/21 @ 17:44 by Hannah Li MD) Father Cancer Mother Multiple sclerosis Social History marital status: household members: spouse lives independently: Yes Smoking Status: Never smoker Assessment & Plan Assessment & Plan narrative: 1. Acute respiratory failure with hypoxia, present on admission, secondary to COVID 19 pneumonia. -will continue decadron, baricitinib (renally dosed). Discontinued remdesevir for renal disease and bradycardia. Continue to wean O2 as tolerated, still on heated high flow. -on lovenox for RUE DVT initially, switched to heparin gtt due to renal disease -continue proning -rising WBC, no fever. UA negative. Procalcitonin borderline at 0.55. CXR without obvious changes. UA negative. Added antibiotics as WBC close to 19. Caddie Supervisor recommended cefepime and linezolid. Continue to monitor, attempt sputum culture but not coughing sputum. Linezolid dc as mrsa swab negative. 2. Acute, possibly on Chronic Renal Failure -Creatinine elevated at 2.75, unsure of baseline, continues to slowly improve initially to 1.7 -creatinine now worsened to 2.19, urine output still good, stop lasix and gentle IVF -Lactic Acid 1.6 -Losartan on hold 3. Hypertension -blood pressure well controlled -hold losartan and felodipine. On lasix as noted above. 4. Type 2 Diabetes -hold metformin and glipizide -basal bolus insulin, decreased to 35 U at night given poor PO intake due to hypoxia. -talent acquisition assistant consulted today, appreciate recommendations. 5. Line associated DVT of the RUE. ?- patient with RUE DVT associated with line placement. ?- removef RUE line, replacef with L sided midline. ?- started on anticoagulation with Lovenox. 6. RAÚL ?- provided CPAP therapy when at rest. 7. Metabolic encephalopathy, improved ?- waxing and waning, secondary to ICU delirium and hypoxia. Continue above therapies for hypoxia. Time Spent With Patient Critical Care time: I spent a total of [] minutes of critical care time on this patient's care today; this time is exclusive of procedural time.
[2021-03-15] MEDS: HEPARIN DRIP 25,000 UNIT/500 ML IV.SOLN 37.548 UNIT IV (16:37)
[2021-03-15] MEDS: SODIUM CHLORIDE 0.9% 1,000 ML 70 ML IV (16:38)
[2021-03-15 17:20] LABS: INR 1.2 (0.9-1.3); Prothrombin Time 13.2 SECONDS (10.1-12.7)
[2021-03-15 17:22] LABS: PTT Partial Thromboplastin Tim 39 SECONDS (26.4-36.2)
--- NOTE | 2021-03-15 17:53 | PC.NURSE ---
Addendum entered by Peyton Alvarado R.N. 03/15/21 21:26: Entered room for pt care at 2100. Pt was right side-laying and his sats were high-80's. Given 100% O2 flush. He was lethargic and shivering as though cold. Sats dropped lower, rapidly. All connections to F were intact, pleth form was good and pt was responding to 100% flush. Called RT to attend, placed NRB over high-flow mask, and turned pt supine with HOB raised. RT at bedside, placed pt on CPAP, oxygen sats improved. Addendum entered by Peyton Alvarado R.N. 03/15/21 19:44: As of 1929, pt repositioned from chair to bed, proning, tolerating well. Original Note: SHIFT: Report received, care assumed 1530. Pt A&Ox4. Up in chair. Using HHF 60 lpm/80% FiO2. Reports it was not a good day, seems to be feeling pretty low. Spent a great deal of time in room making conversation, discussing POC, promoting proning and offering encouragement. Pt reports feeling better. Attempted to place a video call with his but was unable to coordinate; however, he did speak to her on the phone. also updated on POC. Heparin gtt administered per new order, 1900 units/hr.
[2021-03-15] MEDS: MELATONIN 3 MG TABLET 6 MG PO (20:54)
[2021-03-15 21:42] LABS: Carbon Dioxide 23 mmol/L (22-32); Chloride 102 mmol/L (98-107); Estimated Glomerular Filt Rate 30.3 mL/min (>60); Glucose 352 mg/dL (80-110); HEMOLYSIS < 15 (0-50); Potassium 4.2 mmol/L (3.4-5.1); Sodium 135 mmol/L (137-145)
[2021-03-15 21:59] LABS: Blood Urea Nitrogen 120 mg/dL (9-20)
[2021-03-15] MEDS: INSULIN GLARGINE 100 UNIT/ML 3ML PEN 42 UNIT SUBCUT (22:21)
[2021-03-15 23:12] LABS: PTT Partial Thromboplastin Tim 118 SECONDS (26.4-36.2)
[2021-03-16] VITALS (10 sets, daily range): BP systolic 107–118; BP diastolic 56–71; PULSE 62–98; RESP 20–24; TEMP 31–37.1; O2SAT 94–100
--- NOTE | 2021-03-16 00:15 | PM.ICURNDS ---
- Date Patient Seen: 03/16/21 Time Patient Seen: 00:12 :: This patient was seen via real time interactive two-way audiovisual telecommunication. Note: Patient remains on 80% FiO2 and 60 L/min HFNC. Overall condition is unchanged since I last rounded on him or saw him. On camera, he is in no acute distress. Transfer is being sought due to decreased renal function and concern for eventual renal replacement therapy; does not presently meet criteria for this. Glycemic control remains suboptimal and insulin glargine therapy was adjusted during rounds earlier this shift. Discussed with RN and RT.
[2021-03-16 05:13] LABS: Hematocrit 25.6 % (41-53); Hemoglobin 8.6 g/dL (13.5-17.5); Mean Corpuscular HGB Conc 33.8 % (30-36); Mean Corpuscular Hemoglobin 30.3 PG (26-34); Mean Corpuscular Volume 89.7 fL (80-100); Platelet Count 412 X10^3/uL (150-400); Red Blood Cell Count 2.85 X10^6/uL (4.5-5.9); Red Cell Distribution Width 13.6 % (11.6-14.8); White Blood Cell Count 22.1 X10^3/uL (4.5-11.0)
[2021-03-16 05:24] LABS: Calcium 8.6 mg/dL (8.4-10.2); Carbon Dioxide 24 mmol/L (22-32); Chloride 104 mmol/L (98-107); Estimated Glomerular Filt Rate 27.3 mL/min (>60); Glucose 165 mg/dL (80-110); HEMOLYSIS < 15 (0-50); Potassium 3.8 mmol/L (3.4-5.1); Sodium 136 mmol/L (137-145)
[2021-03-16 05:31] LABS: BUN Creatinine Ratio 51.5 (6-22)
[2021-03-16 05:33] LABS: Blood Urea Nitrogen 123 mg/dL (9-20)
[2021-03-16 05:37] LABS: PTT Partial Thromboplastin Tim 181 SECONDS (26.4-36.2)
--- NOTE | 2021-03-16 05:43 | PC.NURSE ---
Pt's Hgb has steadily decreased the past 2 days and is now at 8.6. Called Dr. Pacheco he stated to redraw the Hgb at 0900 and add Protonix 40 mg BID. After doing that the Pt's PTT came back at 181. I then called back to see if he would like the heparin gtt turned off. It was decided to follow the protocol.
[2021-03-16] MEDS: HEPARIN DRIP 25,000 UNIT/500 ML IV.SOLN 30 UNIT IV (06:41)
[2021-03-16] MEDS: SODIUM CHLORIDE 0.9% 1,000 ML 70 ML IV (06:42)
[2021-03-16] MEDS: INSULIN LISPRO 100 UNIT/ML 3ML VIAL SUBCUT (08:25)
[2021-03-16] MEDS: DOCUSATE 100 MG CAPSULE PO (08:26)
[2021-03-16] MEDS: CEFEPIME 2 GM in SODIUM CHLORIDE 0.9% 100 ML 200 ML IV (08:26)
[2021-03-16] MEDS: BARICITINIB 2 MG TABLET PO (08:26)
[2021-03-16] MEDS: DEXAMETHASONE 10 MG/ML VIAL 6 MG IV (08:27)
[2021-03-16] MEDS: INSULIN GLARGINE 100 UNIT/ML 3ML PEN 14 UNIT SUBCUT (08:29)
--- NOTE | 2021-03-16 08:29 | DIET.PN1 ---
Dietary Progress Note RD Note: Pt at LOS day 10 for covid19+ status remains on heated high flow O2 with worsening renal function. Kitchen working closely c pt to find PO nourishments including ONS which pt will tolerate, however pts POs not meeting EER. Pt has adequate use of one nostril at baseline with concerns an NGT would block functional nare reducing efficacy of respiration. Pts suboptimal glucose control and worsening renal function with poor POs despite multiple PO and ONS interventions, pt would benefit from transfer to higher level of care with dedicated higher acuity nutrition support team. Ht: 180.34 cm Wt: 104 kg BMI: 34.1 UBW: 111kg Last BM: 03/15/21 (03/15/21 11:50) MNA: Jose Angel Score: 20 Diet: 03/06/21 Dinner Carbohydrate Consistent Diet Diet Modifications: easy to eat foods, bluebrry smoothie tid Carbohydrate level: Large (4 CHO) Bedtime snack: No Nutrition Percent Meal Consumed 25% 03/15/21 13:31 Percent Meal Consumed 25% 03/15/21 10:00 Labs: RBC 2.85 X10^6/uL (4.5-5.9) L 03/16/21 05:00 Hgb 8.6 g/dL (13.5-17.5) L 03/16/21 05:00 Hct 25.6 % (41-53) L 03/16/21 05:00 Creatinine 2.39 mg/dL (0.66-1.25) H 03/16/21 05:00 Lactate 1.6 mmol/L (0.7-2.1) 03/06/21 10:00 Ferritin 1170 ng/mL (18-464) H 03/09/21 04:37 NT-Pro-B Natriuret Pep 300 pg/mL (<125) H 03/06/21 10:00 Nutrition Diagnosis: Severe Acute Protein Calorie Malnutrition r/t taste changes and stress metabolism secondary to Covid19 aeb 6.4% unintentional weight loss in 1w (severe), pt obese BMI 31.9 at high risk for deconditioning and hypoventilation increasing difficulty c eating, POs meeting <50% needs x1w despite continued nutrition intervention trials. Interventions: 1. Will continue working c pt to offer PO nourishments with goal of increasing POs >50% at meals. 2. Nursing to encourage pt to take small bites and sips throughout day to support nutrition status. Electronically Signed by: Christine Gomez 03/16/21 08:29 Clinical Dietitian [address] [id number]
[2021-03-16] MEDS: PANTOPRAZOLE DR 40 MG TABLET PO (08:32)
--- NOTE | 2021-03-16 08:57 | PM.DS.1 ---
History of Present Illness History of Present Illness Chief complaint: SOB Narrative: Per Dr. Li the patient is a 65-year-old male with a history of type 2 diabetes, hypertension, who was in his usual state of health until about 1 week ago.? Patient was diagnosed with pneumonia? and started on oral antibiotics.? Patient states that he became more short of breath.? As his shortness of breath increased the called EMS for him to be admitted to the hospital.? Patient was diagnosed with COVID 19.? He is unvaccinated.? He does report shortness of breath, cough, loss of taste and smell.? He has a poor appetite.? He has no headache.? He has had no diarrhea.? Patient denies any abdominal pain.? He has a plate in his ankle and has chronic ankle pain.? Patient was evaluated in the emergency room found to be [id number] positive.? He was markedly hypoxic.? Patient is now on 80% high-flow oxygen with a saturation of 95%.? Since pronating he has had improvement of his oxygenation.? Patient is admitted to the ICU for treatment of acute respiratory failure secondary to COVID pneumonia. Discharge Providers Provider Date of admission: 03/06/21 13:47 Discharge Date: 03/16/21 Primary care physician: Rigoberto Neri MD Consults: 03/06/21 17:30 Consult to Tele-equal employment opportunity officer Routine Comment: Consulting Provider: Rashida Tele-intensivists Reason for consultation: Private Branch Exchange Service Adviser services Has provider been notified: Yes 03/10/21 11:22 Consult to Respiratory Therapy Evaluate & Treat Comment: start CPAP HS and PRN Physician Instructions: Evaluate and treat 03/12/21 20:50 Consult to Physical Therapy Evaluate & Treat Comment: Physician Instructions: Evaluate and Treat 03/15/21 08:10 Consult to Dietitian, Adult Routine Comment: Reason For Exam: covid, poor po intake Discharge provider: Pedro Mark MD Summary Hospital Course Discharge Diagnosis: 1. Acute hypoxemic respiratory failure secondary to COVID pneumonia 2. Acute kidney failure, with questionable chronic kidney disease 3 Hypertension 4. Type 2 Diabetes 5. Right upper extremity DVT, associated with R midline, now removed 6. RAÚL 7. Anemia 8. Metabolic encephalopathy, improved Hospital Course: Mr. Remy is a gentleman, unvaccinated against COVID who presented to the hospital on 03/06 with acute hypoxemic respiratory failure. He was found to have COVID pneumonia. He needed heated high flow oxygen as soon as he arrived in the hospital. He has been unable through his hospitalization to wean off the heated high flow, and has primarily been no near max heated high flow setting for multiple days, currently at 60L 70%, with CPAP overnight. He has been on dexamethasone since admission, now completed a 10 day course. He is also on baracitinib renally dosed. He is not on remdesivir due to renal insufficiency. He had multiple goals of care discussion about his guarded prognosis, his possible poor outcome if he were to become hypoxemic on high flow and be intubated. Trach and peg were discussed as well. He said he is full code and would want these measures if he declined with current treatment. In addition, he was noted to have rising white count to 18 with 9% bands on 03/11. Procalcitonin 0.61. Cultures were sent which were negative for infection, blood cultures negative. No sputum culture was obtainable. He was started on linezlid and cefepime, but MRSA swab negative and linezolid dc. He was planned to have a 7 day course of cefepime for possible bacterial pneumonia. For his kidney function he was admitted with a creatinine of 2.75, baseline unknown, he has no known renal disease. He was diuresed gently to maintain a net negative balance. His creatinine improved to 1.7 on 03/14, but has since been rising to 2.39 on day of discharge. Urine output was total 2.7L on 03/14, 1.9L on 03/15, and 550cc for first 8 hours of 03/16. Losartan was held throughout. Lasix was discontinued with rising creatinine. Additionally, he has known diabetes, not on insulin at home, his blood sugars were quite labile on dexamethasone, and on discharge he was to 56U total units of lantus daily, with 14 in AM, 42 in PM. Blood sugar in AM of 03/16 was 165, but had been 200-400 previous day and lantus was increased. He also had difficult IV stick, he initially had R midline, but on 03/08 he was noted to have swelling and had RUE confirmed DVT. Midline was removed, and he currently has L midline. He has been on anticoagulation full dose since then initially with lovenox, but switched to IV heparin due to worsening renal function. He has also had dropping hemoglobin, with hemoglobin for most of hospitalization being ~14, then dropped to 12 on 03/05, 10.5 on 03/06, 8.6 on 03/16. He had no over GI bleeding. Anemia labs were sent and pending at time of discharge. Finally he was quite anxious and restless at times, possibly secondary to steroids, he did intermittently receive low dose PO ativan which was helpful. CODE: Full, ok for intubation, trach/peg Proxy: Romi Avendano, , Exam Vital Signs (past 8 hours): - 03/16/21 01:44 03/16/21 03:30 03/16/21 04:50 Temperature 97.6 F Pulse Rate 67 Respiratory Rate 22 Blood Pressure 107/71 107/71 118/58 L Pulse Oximetry 94 03/16/21 05:23 03/16/21 08:15 Temperature Pulse Rate 74 Respiratory Rate Blood Pressure 118/58 L Pulse Oximetry 95 Fraction of Inspired Oxygen 55 Oxygen Delivery Method CPAP Oxygen Flow Rate 60 Narrative Exam Narrative: GEN: no acute distress PULM: decreased breath sounds bilaterally CARDIOVASCULAR: regular rate and rhythm with no murmurs ABDOMEN:soft nontender nondistended, no organomegaly, normal bowel sounds Objective Labs Result Diagrams: 03/16/21 05:00 03/16/21 05:00 Labs: Laboratory Results - last 24 hr 03/15/21 03/15/21 03/15/21 11:15 11:15 16:30 WBC 26.9 H RBC 3.49 L Hgb 10.5 L Hct 32.4 L MCV 92.7 MCH 30.0 MCHC 32.4 RDW 13.6 Plt Count 425 H Neut % (Auto) 86.7 H Lymph % (Auto) 6.5 L [place] % (Auto) 3.9 Eos % (Auto) 1.5 L Baso % (Auto) 1.4 Neut # (Auto) 00545 H Lymph # (Auto) 1700 [place] # (Auto) 1100 H Eos # (Auto) 400 Baso # (Auto) 400 H PT 13.2 H INR 1.2 APTT 39 H Sodium 132 L Potassium 4.3 Chloride 97 L Carbon Dioxide 22 BUN 115 H* Creatinine 2.19 H Estimated GFR 30.2 L BUN/Creatinine Ratio 52.5 H Glucose 417 H Calcium 9.0 Phosphorus 4.2 H Albumin 3.2 L 03/15/21 03/15/21 03/16/21 20:55 22:35 05:00 WBC 22.1 H RBC 2.85 L Hgb 8.6 L Hct 25.6 L MCV 89.7 D MCH 30.3 MCHC 33.8 RDW 13.6 Plt Count 412 H Neut % (Auto) Lymph % (Auto) [place] % (Auto) Eos % (Auto) Baso % (Auto) Neut # (Auto) Lymph # (Auto) [place] # (Auto) Eos # (Auto) Baso # (Auto) PT INR APTT 118 H* D Sodium 135 L Potassium 4.2 Chloride 102 Carbon Dioxide 23 BUN 120 H* Creatinine 2.18 H Estimated GFR 30.3 L BUN/Creatinine Ratio 55.0 H Glucose 352 H Calcium 9.0 Phosphorus Albumin 03/16/21 03/16/21 05:00 05:00 WBC RBC Hgb Hct MCV MCH MCHC RDW Plt Count Neut % (Auto) Lymph % (Auto) [place] % (Auto) Eos % (Auto) Baso % (Auto) Neut # (Auto) Lymph # (Auto) [place] # (Auto) Eos # (Auto) Baso # (Auto) PT INR APTT 181 H* D Sodium 136 L Potassium 3.8 Chloride 104 Carbon Dioxide 24 BUN 123 H* Creatinine 2.39 H Estimated GFR 27.3 L BUN/Creatinine Ratio 51.5 H Glucose 165 H D Calcium 8.6 Phosphorus Albumin PFSH Medical History Diabetes History of diabetes mellitus Hypertension Family History (Updated 03/06/21 @ 17:44 by Hannah Li MD) Father Cancer Mother Multiple sclerosis Social History marital status: household members: spouse lives independently: Yes Smoking Status: Never smoker Discharge Plan Discharge Plan Disposition: Xfer Acute Care Hospital Discharge orders & Medications Follow up/Referrals: Rigoberto Neri MD [Primary Care Provider] - Discharge Data Primary Care Provider: Rigoberto Neri
[2021-03-16 09:14] LABS: Lactate Dehydrogenase 1362 U/L (313-618)
[2021-03-16 09:21] LABS: Hematocrit 25.4 % (41-53); Hemoglobin 8.5 g/dL (13.5-17.5)
--- NOTE | 2021-03-16 09:29 | CM.DPC ---
DCP Hospital Transfer Per MD, pt has continued to wax and wane on his medical progress and has continued to request full aggressive treatment options and has not improved in reducing his oxygen needs and was needing bursts of 100% O2 and still not improving. RT working to switch pt to bipap to confirm he can tolerate it as pt has been accepted at [facility] for hospital transfer for higher level of care. Pt has remained in contact with his spouse during his admission. Plan: Patient to transfer for higher level of care to [facility] for ongoing COVID+ symptoms and metabolic encephalopathy. HEENA Singh
[2021-03-16 09:32] LABS: HEMOLYSIS < 15 (0-50); Iron 145 ug/dL (49-181)
--- NOTE | 2021-03-16 09:33 | PM.PN.EICU ---
Subjective Subjective :: This patient was seen via real time interactive two-way audiovisual telecommunication. Developed worsening JALEEL and Hb down to 8.6 with no signs of overt bleed. On HFNC 60/70%. Awake and following commands. Awaiting for transport team to transfer patient to [facility]. Current Medications Current Medications Medications: Home Medications felodipine 2.5 mg tablet,extended release 24 hr 2.5 mg PO DAILY 03/06/21 [History Confirmed 03/06/21] losartan 100 mg tablet 100 mg DAILY 03/06/21 [History Confirmed 03/06/21] metformin 500 mg tablet,extended release 24 hr 500 mg PO DAILY 03/06/21 [History Confirmed 03/06/21] Visit Medications (administered) Generic Name Dose Route Start Last Admin Trade Name Freq PRN Reason Stop Dose Admin Acetaminophen 650 mg 03/06/21 17:30 03/13/21 18:13 Acetaminophen 325 Mg Tablet PO 650 mg Q6HR PRN Administration Fever Bisacodyl 10 mg 03/06/21 17:30 03/15/21 11:12 Bisacodyl 10 Mg Supp UT 10 mg DAILY PRN Administration Constipation Dexamethasone 6 mg 03/07/21 09:00 03/16/21 08:27 Dexamethasone 10 Mg/Ml Vial IV 6 mg DAILY CARRILLO Administration Docusate Sodium 100 mg 03/06/21 21:00 03/16/21 08:26 Docusate 100 Mg Capsule PO 100 mg BID CARRILLO Administration Fluticasone Propionate 1 spray 03/11/21 09:45 03/15/21 22:40 Fluticasone 120 [place]/16 Gm [place].Susp NASAL Not Given BID CARRILLO Heparin Sodium (Porcine) 50 unit 03/08/21 09:00 03/16/21 08:27 Heparin Flush (Cl/Picc/Mid-Line) 50 Unit/5 Ml Syringe IV 50 unit BID CARRILLO Administration Heparin Sodium (Porcine) 50 unit 03/07/21 22:43 03/12/21 23:26 Heparin Flush (Cl/Picc/Mid-Line) 50 Unit/5 Ml Syringe IV 50 unit PRN PRN Administration Flush Cefepime HCl 2 gm/ Sodium 100 mls @ 200 mls/hr 03/11/21 12:30 03/16/21 09:14 Chloride IV 03/17/21 21:29 Infused BID CARRILLO Infusion Sodium Chloride 1,000 mls @ 70 mls/hr 03/15/21 16:00 03/16/21 06:42 Normal Saline 0.9% IV 70 mls/hr CONT CARRILLO Administration Heparin Sodium/Dextrose 25,000 unit in 500 mls @ 37.548 mls/hr 03/15/21 16:15 03/16/21 06:41 Heparin Drip IV 14.38 units/kg/hr CONT CARRILLO 30 mls/hr Administration Protocol 18 UNITS/KG/HR Insulin Glargine 42 unit 03/15/21 22:00 03/15/21 22:21 Insulin Glargine 100 Unit/Ml 3ml Pen SUBCUT 42 unit BEDTIME CARRILLO Administration Insulin Glargine 14 unit 03/16/21 09:00 03/16/21 08:29 Insulin Glargine 100 Unit/Ml 3ml Pen SUBCUT 14 unit DAILY CARRILLO Administration Insulin Human Lispro 0 unit 03/06/21 21:00 03/16/21 08:25 Insulin Lispro 100 Unit/Ml 3ml Vial SUBCUT 2 unit ACHS CARRILLO Administration Protocol Lorazepam 0.5 mg 03/14/21 16:57 03/15/21 19:19 Lorazepam 0.5 Mg Tablet PO 0.5 mg Q6HR PRN Administration Anxiety Melatonin 6 mg 03/10/21 21:00 03/15/21 20:54 Melatonin 3 Mg Tablet PO 6 mg BEDTIME CARRILLO Administration Pantoprazole Sodium 40 mg 03/16/21 09:00 03/16/21 08:[address] 40 Mg Tablet PO 40 mg 0700,2100 CARRILLO Administration Sodium Chloride 10 ml 03/07/21 22:44 03/12/21 23:26 Sodium Chloride 0.9% Flush IV 10 ml PRN PRN Administration Flush Sodium Chloride 1 spray 03/13/21 08:47 03/13/21 09:44 Sodium Chloride Nasal [place] NASAL 1 spray PRN PRN Administration Congestion Objective Ventilator Parameters: Ventilator Settings FiO2 83 Labs Result Diagrams: 03/16/21 09:00 03/16/21 05:00 Labs: Laboratory Results - last 24 hr 03/15/21 03/15/21 03/15/21 11:15 11:15 16:30 WBC 26.9 H RBC 3.49 L Hgb 10.5 L Hct 32.4 L MCV 92.7 MCH 30.0 MCHC 32.4 RDW 13.6 Plt Count 425 H Neut % (Auto) 86.7 H Lymph % (Auto) 6.5 L [place] % (Auto) 3.9 Eos % (Auto) 1.5 L Baso % (Auto) 1.4 Neut # (Auto) 68725 H Lymph # (Auto) 1700 [place] # (Auto) 1100 H Eos # (Auto) 400 Baso # (Auto) 400 H Percent Retic PT 13.2 H INR 1.2 APTT 39 H Sodium 132 L Potassium 4.3 Chloride 97 L Carbon Dioxide 22 BUN 115 H* Creatinine 2.19 H Estimated GFR 30.2 L BUN/Creatinine Ratio 52.5 H Glucose 417 H Calcium 9.0 Phosphorus 4.2 H Lactate Dehydrogenase Albumin 3.2 L 03/15/21 03/15/21 03/16/21 20:55 22:35 05:00 WBC 22.1 H RBC 2.85 L Hgb 8.6 L Hct 25.6 L MCV 89.7 D MCH 30.3 MCHC 33.8 RDW 13.6 Plt Count 412 H Neut % (Auto) Lymph % (Auto) [place] % (Auto) Eos % (Auto) Baso % (Auto) Neut # (Auto) Lymph # (Auto) [place] # (Auto) Eos # (Auto) Baso # (Auto) Percent Retic PT INR APTT 118 H* D Sodium 135 L Potassium 4.2 Chloride 102 Carbon Dioxide 23 BUN 120 H* Creatinine 2.18 H Estimated GFR 30.3 L BUN/Creatinine Ratio 55.0 H Glucose 352 H Calcium 9.0 Phosphorus Lactate Dehydrogenase Albumin 03/16/21 03/16/21 03/16/21 05:00 05:00 05:00 WBC RBC Hgb Hct MCV MCH MCHC RDW Plt Count Neut % (Auto) Lymph % (Auto) [place] % (Auto) Eos % (Auto) Baso % (Auto) Neut # (Auto) Lymph # (Auto) [place] # (Auto) Eos # (Auto) Baso # (Auto) Percent Retic 2.0 PT INR APTT 181 H* D Sodium 136 L Potassium 3.8 Chloride 104 Carbon Dioxide 24 BUN 123 H* Creatinine 2.39 H Estimated GFR 27.3 L BUN/Creatinine Ratio 51.5 H Glucose 165 H D Calcium 8.6 Phosphorus Lactate Dehydrogenase Albumin 03/16/21 03/16/21 05:00 09:00 WBC RBC Hgb 8.5 L Hct 25.4 L MCV MCH MCHC RDW Plt Count Neut % (Auto) Lymph % (Auto) [place] % (Auto) Eos % (Auto) Baso % (Auto) Neut # (Auto) Lymph # (Auto) [place] # (Auto) Eos # (Auto) Baso # (Auto) Percent Retic PT INR APTT Sodium Potassium Chloride Carbon Dioxide BUN Creatinine Estimated GFR BUN/Creatinine Ratio Glucose Calcium Phosphorus Lactate Dehydrogenase 1362 H D Albumin Exam Vital Signs (past 8 hours): - 03/16/21 01:44 03/16/21 03:30 03/16/21 04:50 Temperature 97.6 F Pulse Rate 67 Respiratory Rate 22 Blood Pressure 107/71 107/71 118/58 L Pulse Oximetry 94 03/16/21 05:23 03/16/21 08:00 03/16/21 08:15 Temperature 98.7 F Pulse Rate 98 H 74 Respiratory Rate 24 Blood Pressure 118/58 L 116/62 Pulse Oximetry 95 95 Fraction of Inspired Oxygen 58 Oxygen Delivery Method CPAP Oxygen Flow Rate 60 Assessment & Plan Assessment & Plan narrative: #?Acute hypoxemia respiratory falure -- Secondary to COVID PNA and possible superimposed PNA -- On cefepime X 7 days for presumptive negative cx bacterial PNA -- FiO2 stable -- Monitor closely for need for intubation -- Encourage proning as tolerated -- Monitor I/O -- Holding diuretic due to worsening renal function -- Goal SpO2 > 88% # COVID PNA -- On baricitinib -- Cont decadron -- Encourage self proning as tolerated # JALEEL -- Worsen over the last 48 hours -- Anticipate patient will need renal replacement therapy if no improvement in the next 24 hours -- Avoid nephrotoxin agents -- Meds dose to GFR <30 -- Lasix held -- Daily BMP # HAP -- Cont cefepime X 7 days # RUE DVT -- On heparin infusion protocol # Anemia -- Secondary to JALEEL and acute sickness causing BM suppression -- No signs of overt bleed -- Repeat H/H stable -- Goal Hb > 7 # DM -- BS improved -- On lantus and ISS -- Accucheck AC QHS -- Goal BS < 180 Patient is awaiting transfer to [facility] as patient may need renal replacement therapy in the next 24 hours if renal function fails to improve. Case d/w hospitalist, RT, pharmacist, and RN at bedside. Time Spent With Patient Critical Care time: I spent a total of [] minutes of critical care time on this patient's care today; this time is exclusive of procedural time.
[2021-03-16 09:43] LABS: Percent Iron Saturation 58 % (20-50); Total Iron Binding Capacity 249 ug/dL (261-462); Transferrin 170 mg/dL (206-381)
--- NOTE | 2021-03-16 10:06 | PT-IP ANOTE ---
Per RN, no PT today due to getting patient prepared for transfer for [facility] for higher level of care.
[2021-03-16 10:21] LABS: Folate 5.2 ng/mL (2.76-20.0); Vitamin B12 520 pg/mL (239-931)
--- NOTE | 2021-03-16 10:21 | PC.NURSE ---
Addendum entered by Annie Austin R.N. 03/16/21 10:37: REPORT CALLED TO ERNESTO JOHNSON @ [facility] Original Note: PT REMAINS HYPOXIC AND REQUIRING OXYGEN AT HIGH DOSES, HHFNC 60L/70% OR CPAP 58% (PRESSURE OF 14)- LUNGS COARSE - TRANSFER PREPARATIONS ARE BEING MADE TO [facility] IN [place] WITH ACCEPTING MD ROGERS- UPDATE TO [place] BY AND ALLOWED PT TO SPEAK WITH HIS -HEPARIN GTT DECREASED TO 1400 UNITS/H PER PROTOCOL AND LAST PTT- AWAITING TRANSPORT AT PRESENT
[2021-03-16] MEDS: LORazepam 0.5 MG TABLET PO (11:09)
== END 2021-03-16 11:40 | disposition short-term general hospital (02) | DRG 177 ==
LOC: ED 13:41 → AC 13:48 → ICU 03-07 07:22
PROVIDERS: Internal Medicine; Internal Medicine Critical Care Medicine; Internal Medicine Pulmonary Disease; Admitting Provider Internal Medicine; Emergency Provider Emergency Medicine; Family Provider Internal Medicine; PCP Internal Medicine; Referring Provider Emergency Medicine; Visit Provider Internal Medicine
DX: U07.1 COVID-19 (principal); J12.82 Pneumonia due to coronavirus disease 2019; J96.01 Acute respiratory failure with hypoxia; G93.41 Metabolic encephalopathy; J15.9 Unspecified bacterial pneumonia; E43 Unspecified severe protein-calorie malnutrition; N17.9 Acute kidney failure, unspecified; E87.2 Acidosis; I82.890 Acute embolism and thrombosis of other specified veins; T82.868A Thrombosis due to vascular prosthetic devices, implants and grafts, initial encounter; Z68.41 Body mass index [BMI] 40.0-44.9, adult; G47.33 Obstructive sleep apnea (adult) (pediatric); I12.9 Hypertensive chronic kidney disease with stage 1 through stage 4 chronic kidney disease, or unspecified chronic kidney disease; N18.9 Chronic kidney disease, unspecified; D64.9 Anemia, unspecified; Z79.84 Long term (current) use of oral hypoglycemic drugs
CPT/HCPCS: 36415; 36569; 36592; 36600; 71045; 80048; 80053; 80069; 81001; 82550; 82553; 82607; 82728; 82746; 82805; 82947; 82962; 83540; 83550; 83605; 83615; 83690; 83735; 83880; 84145; 84484; 85007; 85014; 85018; 85025; 85027; 85045; 85379; 85610; 85730; 86140; 87040; 87635; 87797; 93005; 93010; 93970; 94660; 96361; 96374; 97110; 97162; 97530; 99284; 99291; 99292; C9803; J0692; J1100; J1642; J1644; J1650; J1815; J1940; J2020